=== PATIENT | female | born 1950 | race Caucasian/White ===

== ENCOUNTER → 2024-09-29 | Outpatient (CLI) | payer MEDICARE, MEDICAID, SELFPAY ==
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
== END | disposition home or self-care (01) ==
PROVIDERS: PCP Family Medicine; Referring Provider Family Medicine; Visit Provider Family Medicine
DX: M75.102 Unspecified rotator cuff tear or rupture of left shoulder, not specified as traumatic (principal)
CPT/HCPCS: 73221

== ENCOUNTER 2025-02-12 16:02 | Inpatient (IN) | payer MEDICARE, MEDICAID, SELFPAY ==
[2025-02-12] VITALS (18 sets, daily range): BP systolic 95–166; BP diastolic 52–92; PULSE 95–122; RESP 13–89; TEMP 35.7–38.6; O2SAT 89–98; BMI 36.6; BMI 36.8
--- NOTE | 2025-02-12 16:18 | PD.EDURI ---
Upper Respiratory Inf. RME/HPI General Chief Complaint: Upper Respiratory Infection Stated Complaint: WEAKNESS Time Seen by Provider: 02/12/25 16:08 Arrival date/time: 02/12/25 16:02 Limitations: no limitations RME / HPI RME / HPI Narrative: 74 year old female with history of diabetes, hypothyroidism, spinal stenosis, chronic pain presents to the ED BIBA from [facility] for evaluation of weakness beginning 2 days ago. Per medics, [place] reported the patient was diaphoretic, tachycardic rate 118, and hypoxic 88% on room air. Additionally reported the patient was diagnosed with a UTI 2 days ago and started on antibiotics. While in the ED, the patient reports feeling slightly short of breath with a mild cough and abdominal pain. Otherwise no other associated symptoms reported. Related Data Home Medications ?Medication ?Instructions ?Recorded ?Confirmed cyclobenzaprine 10 mg tablet 10 mg PO BID PRN Muscle Pain 05/23/24 02/12/25 Held on 05/23/24. Instructions: Resume on 05/24/24. docusate sodium 250 mg capsule 250 mg PO BID 05/23/24 02/12/25 duloxetine 40 mg capsule,delayed 40 mg PO BID 05/23/24 02/12/25 release insulin degludec 100 unit/mL (3 100 unit subcut AC 05/23/24 02/12/25 mL) subcutaneous pen (Tresiba FlexTouch U-100 insulin) lactulose 10 gram/15 mL oral 10 g PO Q8HR PRN Gastrointestinal 05/23/24 02/12/25 solution (Enulose) Spasms Or Cramping levothyroxine 75 mcg tablet 75 mcg PO QDAY 05/23/24 02/12/25 linaclotide 145 mcg capsule 145 mcg PO QDAY 05/23/24 02/12/25 (Linzess) ondansetron HCl 4 mg tablet 4 mg PO Q8HR 05/23/24 02/12/25 oxycodone 10 mg tablet 10 mg PO Q8HR PRN Pain 05/23/24 02/12/25 Held on 05/23/24. Instructions: Resume on 05/24/24. promethazine-DM 6.25 mg-15 mg/5 mL 6.25 ml PO Q6HR PRN Cough 05/23/24 02/12/25 oral syrup semaglutide 7 mg tablet (Rybelsus) 7 mg PO QAM 05/23/24 02/12/25 Lactobacillus 1 tab PO QAM 02/12/25 02/12/25 acidophilus-Lactbacill.bifidus 1 billion cell oral wafer bisacodyl 10 mg rectal suppository 10 mg [place] QDAY PRN constipation 02/12/25 02/12/25 (Dulcolax (bisacodyl)) ibuprofen 600 mg tablet 600 mg PO Q8H PRN pain 02/12/25 02/12/25 insulin degludec 100 unit/mL (3 30 unit subcut QDAY 02/12/25 02/12/25 mL) subcutaneous pen (Tresiba FlexTouch U-100 insulin) lidocaine 5 % topical patch 1 patch topical Q24H 02/12/25 02/12/25 magnesium hydroxide 400 mg/5 mL 30 ml PO Q72H Constipation 02/12/25 02/12/25 oral suspension (Milk of Magnesia) nortriptyline 10 mg capsule 10 mg PO .qhs 02/12/25 02/12/25 ondansetron HCl 4 mg tablet 4 mg PO Q8H 02/12/25 02/12/25 pregabalin 100 mg capsule 100 mg PO Q8H 02/12/25 02/12/25 pregabalin 100 mg capsule (Lyrica) 100 mg PO Q8H 02/12/25 02/12/25 sennosides 8.6 mg-docusate sodium 2 tab-cap PO BID PRN constipation 02/12/25 02/12/25 50 mg tablet (2-in-1 Laxative) simethicone 80 mg chewable tablet 80 mg PO TID 02/12/25 02/12/25 (Gas Relief 80 (simethicone)) sulfamethoxazole 800 1 tab PO BID 02/12/25 02/12/25 mg-trimethoprim 160 mg tablet (Bactrim DS) Allergies Allergy/AdvReac Type Severity Reaction Status Date / Time niacin Allergy Severe Flushing Verified 05/23/24 14:01 Review of Systems Review of Systems Systems Reviewed: All systems reviewed, normal except as documented Past Medical History Past Medical History NEUROLOGIC: Positive Neurological Disorders and Peripheral Neuropathy CARDIAC: Positive Hypercholesterolemia RESPIRATORY: Positive Sleep Apnea GENITOURINARY: Positive Genitourinary Disorders and Renal Disease (ENLARGED LIVER) REPRODUCTIVE: Positive Previous Pregnancies MUSCULOSKELETAL: Positive Musculoskeletal Disorders and Carpal Tunnel Syndrome ENDOCRINE: Positive Endocrine Disorders and Hypothyroidism OTHER HISTORY: Positive Falls, Blood Transfusions, Chicken Pox and Measles Surgical History SURGICAL: Positive Tonsillectomy, Joint Replacement and Hysterectomy Social History SMOKING STATUS: Former smoker SUBSTANCE USE: does not use ED Exam General Limitations: Present no limitations General appearance: Present alert and in no apparent distress Head Head exam: Present atraumatic, normocephalic and normal inspection Eye Eye exam: Present normal appearance, PERRL and EOMI ENT ENT exam: Present normal exam, normal oropharynx and mucous membranes moist Neck Neck exam: Present normal inspection, full ROM and trachea midline Chest Chest inspection: Present normal inspection and symmetric chest wall rise Respiratory Respiratory exam: Present normal lung sounds bilaterally Cardiovascular Cardiovascular exam: Present regular rate, normal rhythm and normal heart sounds Abdominal Exam Abdominal exam: Present soft, normal bowel sounds and other (large hernia in the left lower abdomen, midline surgical scar noted ) Extremities Exam Extremities exam: Present other (well healed surgical scar on the left knee) Back Exam Back exam: Present normal inspection and full ROM Neurological Exam Neurological exam: Present alert, oriented X3 and CN II-XII intact Psychiatric Psychiatric exam: Present normal affect and normal mood Skin Skin exam: Present warm, dry, intact and normal color Course Quality Measures Current suspected stage: sepsis Possible source: genitourinary Blood cultures ordered: completed in ED Antibiotic ordered: Yes Pertinent labs: 02/12/25 02/12/25 16:20 16:30 Lactic Acid 1.2 mMol/L (0.4-2.0) Procalcitonin 0.56 H ng/ml (0.0-0.49) sepsis Orders Category Date Time Status Blood gas, venous NOW Care 02/12/25 16:22 Active COVID-19 Screening Questionnaire NOW Care 02/12/25 20:06 Completed Bulk Sausage Casing Tier Off Q4H START 00 Care 02/12/25 16:17 Active Continuous Pulse Oximetry STAT Care 02/12/25 16:17 Completed Decision to Admit X1 Care 02/12/25 20:06 Completed EKG (ED ONLY) *Do not use* NOW Care 02/12/25 16:17 Completed In and Out Catheter X1PRN Care 02/12/25 16:17 Completed Insert IV NOW Care 02/12/25 16:17 Active NPO STAT Care 02/12/25 16:17 Active Strict Intake and Output Routine Care 02/12/25 16:[address] abdomen pelvis wo con Stat Exams 02/12/25 16:17 Completed CXRP [XR chest 1V portable] Stat Exams 02/12/25 16:17 Completed EKG (ED Only) Stat Exams 02/12/25 16:17 Ordered US gall bladder Stat Exams 02/12/25 17:56 Completed ABG [Arterial Blood Gas] Stat Lab 02/12/25 19:56 Completed B-Type Natriuretic Peptide Stat Lab 02/12/25 16:20 Completed Blood Culture (Lab) Stat Lab 02/12/25 16:20 Received CBC Stat Lab 02/12/25 16:20 Completed Comprehensive Metabolic Panel Stat Lab 02/12/25 16:20 Completed LDH (Lactate Dehydrogenase) Stat Lab 02/12/25 16:20 Completed Lactate (Lactic Acid) Stat Lab 02/12/25 16:30 Completed Lipase Stat Lab 02/12/25 16:20 Completed Magnesium Stat Lab 02/12/25 16:20 Completed Partial Thromboplastin Time Stat Lab 02/12/25 16:20 Completed Phosphorous Stat Lab 02/12/25 16:20 Completed Procalcitonin Stat Lab 02/12/25 16:20 Completed Prothrombin Time with INR Stat Lab 02/12/25 16:20 Completed Troponin I Stat Lab 02/12/25 16:20 Completed Urinalysis Stat Lab 02/12/25 16:56 Completed Urine Culture Stat Lab 02/12/25 16:56 Received Dexamethasone Inj [Decadron Inj] Med 02/12/25 17:40 Discontinued 6 mg IVP X1 ONE LORazepam [Ativan Inj] Med 02/12/25 19:37 Discontinued 0.75 mg IVP X1 ONE Meropenem Inj [Merrem Inj] 1,000 mg Med 02/12/25 16:17 Discontinued SODIUM CHLORIDE 0.9% (Popper) [Ns 0.9% (P)] 50 ml IV X1 Norepinephrine/D5W 8mg/250ml [Levophed in D5W 8mg/250ml Med 02/12/25 18:19 Discontinued ] 8 mg in 250 ml IV 0.05 mcg/kg/min Oseltamivir [Tamiflu] Med 02/12/25 18:08 Discontinued 75 mg PO X1 ONE Sodium Chloride 0.9% 1000 ml [Ns] 1,503 ml Med 02/12/25 16:17 Discontinued IV 1,503 mls/hr Oxygen Delivery NOW RT 02/12/25 16:17 Active Vital Signs Vital signs: Vital Signs Temperature 101.5 F H 02/12/25 16:13 Pulse Rate 99 02/12/25 16:13 Respiratory Rate 24 H 02/12/25 16:13 Blood Pressure 120/63 02/12/25 16:13 Pulse Oximetry (%) 89 L 02/12/25 16:13 Oxygen Delivery Method Room Air 02/12/25 16:13 Pulse ox is 89% on room air which is hypoxic. Upper Respiratory Infection MDM Narrative MDM Narrative:: IAltagracia am scribing for and in the presence of Dr. Andrade. 1800: Patient signed out to Dr. Tavarez pending labs and final disposition. Patient data External records reviewed:: [facility] previous records, EMS form and [facility] records (I reviewed pmhx and medication list from [facility] ) Clinical information provided by:: patient and EMS Social determinants that could affect healthcare access:: housing ([place] resident ) Patient has the following chronic illnesses:: diabetes, hypothyroidism, spinal stenosis, chronic pain How is presenting disease/condition affected by chronic disease/condition?: exacerbated by Evaluation data The following diagnostics were reviewed and interpreted by me:: lab results, radiology exam(s) and EKG tracing(s) (02/12/2025 16:11. Sinus rhythm, rate 97, no STEMI, [place] 153 ms, QRS 81 ms, QT/QTc 327/381 ms. ) Lab and/or radiology exams considered but not ordered:: None Interpretation Summary: Ordering Physician: Haim Andrade MD Date of Service: 02/12/25 Procedure(s): CT abdomen pelvis wo con Accession Number(s): [id number] cc: Haim Andrade MD; Manolo Cummings MD; NO PRIMARY/FAMILY,PHYSICIAN~ Examination: CT abdomen and pelvis without contrast. Coronal 3-D reconstructions. Sagittal 2-D reconstructions. Date and time of exam:February 12, 2025 1704 hours Comparison March 24, 2024 INDICATIONS: Abdominal pain and weakness beginning 2 days ago CTDI: vol (mGy): 16.4 DLP: (mGycm): 831 Technique: Axial images of the abdomen have been obtained, 3 mm slice thickness Intravenous contrast material has not been administered. Low dose protocols were performed. One or more of the following dose reduction techniques were used; automated exposure control, adjustment of the mA and/or KV according to patient size, use of iterative reconstruction technique. Findings: No liver lesions Suspicious for small gallstones No pancreatic mass Again noted anterior left upper abdomen hernia defect, 6 cm which contains a loop of small bowel on this study but no incarcerated bowel Larger left anterior abdominal wall hernia defect 7.5 cm containing colon and small bowel Small bowel loops in the hernia defect are mildly fluid distended but without definite incarceration No pericecal inflammatory change No renal or ureteral calculi Urinary bladder is intact Significant osteopenia IMPRESSION: Upper left anterior abdominal wall hernia defects 6 cm containing a loop of small bowel but no incarcerated bowel Larger lower left anterior abdominal wall hernia defects on 0.5 cm containing colon and small bowel, small bowel loops in the hernia defect are mildly fluid distended but no definite incarceration and no bowel obstruction noted Recommend hepatobiliary sonography follow-up to exclude small gallstones Dictated By: Manolo Cummings MD Signed By: <Electronically signed by Manolo Cummings MD in [place]> 02/12/25 1721 Ordering Physician: Haim Andrade MD Date of Service: 02/12/25 Procedure(s): XR chest 1V portable Accession Number(s): [id number] cc: Haim Andrade MD; Manolo Cummings MD; NO PRIMARY/FAMILY,PHYSICIAN~ Examination: AP chest single view TECHNIQUE: AP portable upright chest single view Date and time: February 12, 2025 1838 hours Comparison January 06, 2024 INDICATIONS: Shortness of breath today. FINDINGS: No significant cardiac enlargement Mild vascular congestion Prominent osteopenia. No lobar pneumonia No pulmonary edema IMPRESSION: Mild vascular congestion Dictated By: Manolo Cummings MD Signed By: <Electronically signed by Manolo Cummings MD in OV> 02/12/25 1710 Medications / Prescriptions Medications or Prescriptions considered but not ordered:: None Medication administrations:: Medication Administration History Acetaminophen (Acetaminophen 325 Mg Tablet) 650 mg PO Q6H PRN PRN Reason: Fever >99.5 Stop: 03/14/25 20:07 Acetaminophen (Acetaminophen 325 Mg Tablet) 1,000 mg PO Q6H PRN PRN Reason: PAIN SCALE 1-3 (mild Stop: 03/14/25 20:07 Albuterol/Ipratropium (Albuterol/Ipratropium (Duoneb) Rt Talisha 3 Ml Nebu) 3 ml INH Q6HRRT [facility] Stop: 03/15/25 00:59 Last Admin: 02/13/25 00:51 Dose: 3 ml Documented By: GB Albuterol/Ipratropium (Albuterol/Ipratropium (Duoneb) Rt Talisha 3 Ml Nebu) 3 ml INH Q2HR PRN PRN Reason: SHORTNESS OF BREATH OR WHEEZE Stop: 03/14/25 20:07 Dextrose (Dextrose 50%-Water Inj 50 Ml Syringe) 25 ml IV Q15MIN PRN PRN Reason: BG 50-70 responsive npo pt Stop: 03/14/25 20:25 Dextrose (Dextrose 50%-Water Inj 50 Ml Syringe) 50 ml IV Q15MIN PRN PRN Reason: BG <50 OR BG <70 & pt unresponsive Stop: 03/14/25 20:25 Duloxetine HCl (Duloxetine Hcl 30 Mg Capsule) 40 mg PO BID [facility] Stop: 03/14/25 20:59 Last Admin: 02/12/25 23:25 Dose: Not Given Documented By: AU Non-Admin Reason: NPO Enoxaparin Sodium (Enoxaparin Sod Inj 40 Mg/0.4 Ml Syringe) 40 mg SC QDAY [facility] Stop: 02/27/25 08:59 Glucagon (Glucagon Inj 1 Mg Vial) 1 mg IM Q15MIN PRN PRN Reason: BG <70, and no IV access Ceftriaxone Sodium/Dextrose (Rocephin/D5w 1gm Iv Premix) 1 gm in 50 mls @ 100 mls/hr IV QDAY@2100 [facility] Stop: 02/20/25 20:59 Azithromycin 500 mg/ Sodium (Chloride) 250 mls @ 250 mls/hr IV QDAY@2100 [facility] Stop: 02/20/25 20:59 Insulin Human Lispro (Insulin Lispro (Admelog) 1 Unit/0.01 Ml Unit) 0 unit SC Q6HR [facility]; Protocol Stop: 03/14/25 20:29 Last Admin: 02/13/25 06:17 Dose: 1 unit Documented By: MISHEL Co-signed By: RB Admin: 02/12/25 23:45 Dose: 2 unit Documented By: DARIUS Co-signed By: RB Admin: 02/12/25 20:58 Dose: 2 unit Documented By: JIMBO Co-signed By: ELVIE Levothyroxine Sodium (Levothyroxine Sodium 25 Mcg Tablet) 75 mcg PO ACBR [facility] Stop: 03/15/25 05:59 Last Admin: 02/13/25 06:02 Dose: Not Given Documented By: MISHEL Non-Admin Reason: NPO Ondansetron HCl (Ondansetron Inj 2 Mg/Ml Inj 2 Ml) 4 mg IVP Q6H PRN; Protocol PRN Reason: NAUSEA OR VOMITING Stop: 03/14/25 20:07 Oseltamivir Phosphate (Oseltamivir 75 Mg Capsule) 75 mg PO BID [facility] Stop: 02/19/25 20:59 Pantoprazole Sodium (Pantoprazole Inj 40 Mg Vial) 40 mg IVP QDAY [facility] Stop: 03/15/25 08:59 Sennosides (Senna Tablet) 1 tab PO QDAY [facility]; Protocol Stop: 03/15/25 08:59 Discontinued Medications Dexamethasone Sodium Phosphate (Dexamethasone Sod Phos Inj 10 Mg/Ml Vial) 6 mg IVP X1 ONE Stop: 02/12/25 17:41 Last Admin: 02/12/25 18:07 Dose: 6 mg Documented By: CG Sodium Chloride (Ns) 1,503 mls @ 1,503 mls/hr 30 ml/kg infuse over 60 min (1503 ml) IV .Q1H ONE Stop: 02/12/25 17:16 Last Infusion: 02/12/25 17:47 Dose: Infused Documented By: Admin: 02/12/25 16:48 Dose: 1,503 mls/hr Documented By: CG Meropenem 1,000 mg/ Sodium (Chloride) 50 mls @ 100 mls/hr IV X1 ONE Stop: 02/12/25 16:18 Last Infusion: 02/12/25 17:22 Dose: Infused Documented By: Admin: 02/12/25 16:48 Dose: 100 mls/hr Documented By: CG Norepinephrine/Dextrose (Levophed In D5w 8mg/250ml) 8 mg in 250 mls @ 8.505 mls/hr IV .Q24H PRN; Protocol PRN Reason: PER PROTOCOL Stop: 03/14/25 18:18 Doxycycline Hyclate 100 mg/ (Sodium Chloride) 100 mls @ 100 mls/hr IV BID [facility] Stop: 02/19/25 20:59 Ceftriaxone Sodium/Dextrose (Rocephin/D5w 1gm Iv Premix) 1 gm in 50 mls @ 100 mls/hr IV X1 ONE Stop: 02/12/25 20:59 Last Infusion: 02/12/25 21:19 Dose: Infused Documented By: Admin: 02/12/25 20:50 Dose: 100 mls/hr Documented By: CB Doxycycline Hyclate 100 mg/ (Sodium Chloride) 100 mls @ 100 mls/hr IV X1 ONE Stop: 02/12/25 21:29 Last Admin: 02/12/25 20:50 Dose: 100 mls/hr Documented By: CB Azithromycin 500 mg/ Sodium (Chloride) 250 mls @ 250 mls/hr IV X1 ONE Stop: 02/12/25 21:29 Last Admin: 02/12/25 22:11 Dose: 250 mls/hr Documented By: DARIUS Lorazepam (Lorazepam 2 Mg/Ml Vial) 0.75 mg IVP X1 ONE Stop: 02/12/25 19:38 Last Admin: 02/12/25 19:50 Dose: 0.75 mg Documented By: CB Oseltamivir Phosphate (Oseltamivir 75 Mg Capsule) 75 mg PO X1 ONE Stop: 02/12/25 18:09 Last Admin: 02/12/25 18:14 Dose: 75 mg Documented By: CG Sodium Chloride (Sodium Chloride Rt 10% 15 Ml Nebu) 5 ml INH X1 ONE Stop: 02/12/25 20:09 See above Consultations Consultation(s) initiated? (list below): No Diagnosis Upper Respiratory Differential Diagnosis: upper respiratory infection, viral infection, bronchitis, influenza and other (pneumonia, sepsis, UTI ) Most likely diagnosis given after review of the tests above:: Sepsis 2/2 to urinary source Abdominal pain Admission Indicated Admission indicated?: not indicated Explain why admission is indicated or not indicated:: Pt signed out pending final disposition Admission Request Was there a request for admission?: No Disposition Plan Disposition Plan: other (specify) (Signed out to Dr. Tavarez pending labs. ) Critical Care Time Critical Care Time Critical Care Time: Yes Total Critical Care Time (min.): 45 Attestation: The high probability of sudden, clinically significant deterioration in the patient's condition required the highest level of my preparedness to intervene urgently. The services I provided to this patient were to treat and/or prevent clinically significant deterioration. Services included the following: chart data review, reviewing nursing notes and/or old charts, documentation time, home planning consultant salesperson collaboration regarding findings and treatment options, medication orders and management, direct patient care, vital sign assessments and ordering, interpreting and reviewing diagnostic studies and lab tests. Aggregate critical care time includes only time during which I was engaged in work directly related to the patient's care, as described above, whether at bedside or elsewhere in the Emergency Department. It did not include time spent performing other reported procedures or the services of residents, students, nurses or physician assistants. Discharge Plan Plan Patient Disposition: Admit Acute Care w/in Hospital Discharge Disposition comment: MED TELE Patient condition on transfer: Stable Problem List Clinical Impression: Acute respiratory failure with hypoxia, Influenza, Sepsis, UTI (urinary tract infection)
[2025-02-12 16:36] LABS: Lactate (Lactic Acid) 1.2 mMol/L (0.4-2.0)
[2025-02-12 16:45] LABS: Basophils # (Auto) 0.1 Thou/mm3 (0.0-0.2); Basophils % (Auto) 1 % (0-2.5); Eosinophils % (Auto) 0 % (0-10); Hematocrit 48.3 % (36.0-46.0); Hemoglobin 16.3 g/dL (12.0-16.0); Immature Granulocytes % (Auto) 2 % (0-0); Immature Granulocytes Auto 0.13 Thou/mm3 (0.00-0.00); Lymphocytes # (Auto) 0.7 Thou/mm3 (1.0-4.8); Lymphocytes % (Auto) 12 % (10-50); Mean Corpuscular HGB Conc 33.7 g/dl (31.0-37.0); Mean Corpuscular Hemoglobin 30.2 pg (25.0-35.0); Mean Corpuscular Volume 89 fL (80-100); Monocytes # (Auto) 0.2 Thou/mm3 (0.0-0.8); Monocytes % (Auto) 3 % (0-12); Neutrophils # (Auto) 4.7 Thou/mm3 (1.8-7.7); Neutrophils % (Auto) 82 % (37-80); Nucleated Red Blood Cell % 0 /100 WBC (0); Platelet Count 170 Thou/mm3 (140-440); RDW Standard Deviation 44.9 fL (36.4-46.3); White Blood Count 5.8 Thou/mm3 (3.6-11.0)
[2025-02-12] MEDS: SODIUM CHLORIDE 0.9% 1000 ML 1,503 ML 1503 ML IV (16:48)
[2025-02-12] MEDS: MEROPENEM INJ 1,000 MG in SODIUM CHLORIDE 0.9% (Popper) 50 ML 100 MG IV (16:48)
[2025-02-12 17:09] LABS: B-Type Natriuretic Peptide < 20 pg/mL (0-100)
[2025-02-12 17:15] LABS: Partial Thromboplastin Time 33.2 Seconds (22.0-36.0); Prothrombin Time 11.3 Seconds (9.0-12.2)
[2025-02-12 17:16] LABS: Collection Type, Urine Clean Catch
[2025-02-12 17:26] LABS: Bacteria,Urine 4+; Bilirubin,Urine Negative (Negative); Blood,Urine Negative (Negative); Clarity,Urine Hazy (Clear/Hazy); Color,Urine Yellow (Lt Yel-Yel); Glucose, Urine Negative (Negative); Ketones,Urine Negative (Negative); Leukocyte Esterase,Urine Negative (Negative); Nitrite,Urine Negative (Negative); PH,Urine 5.5 (5.0-7.0); Protein,Urine Trace (Neg - Trace); RBC,Urine 2 /hpf (0-3); Specific Gravity,Urine 1.017 (1.001-1.035); Squamous Epithelial Cell,Urine 3 /hpf (0-5); Urobilinogen,Urine Negative mg/dL (0.0-1.0); WBC,Urine 2 /hpf (0-5)
--- NOTE | 2025-02-12 17:56 | XR_ITS ---
Examination: Abdomen sonogram, Limited Date and time of exam: February 12, 2025 1833 hours INDICATIONS: Cholelithiasis CT EXAMINATION TODAY, ABDOMINAL PAIN THIS WEEK Technique: Real-time daly scale transabdominal sonographic images of the upper abdomen obtained. Findings: Multiple gallstones Normal gallbladder wall Normal common bile duct 0.4 cm Pancreatic head 3.3 cm Liver 19.1 cm mildly irregular contour Normal hepatopedal portal venous flow Patent IVC IMPRESSION: Cholelithiasis, negative for cholecystitis
[2025-02-12] MEDS: DEXAMETHASONE SOD PHOS INJ 10 MG/ML VIAL 6 MG IVP (18:07)
--- NOTE | 2025-02-12 18:11 | PD.EDADDENDU ---
Emergency Room Addendum <Nadine Hoover - Last Filed: 02/12/25 19:29> Addendum Narrative: I took over the care from Dr. Andrade at 6 PM on 02/12/2025, see his notes for complete H&P and ED course. I was asked to take over this patient pending labs. I reviewed all diagnostic test results. Blood tests Sodium 133, Procalcitonin 0.56. I discussed the case with our hospitalist. About the presentation and exam and diagnostics and treatments here. And need of further care in the hospital. Will accept the patient. Steve Tavarez MD <Steve Tavarez MD - Last Filed: 02/12/25 21:03> Addendum Narrative: I took over the care from Dr. Andrade at 6 PM on 02/12/2025, see his notes for complete H&P and ED course. I was asked to take over pending diagnostic test results. I reviewed all diagnostic test results. My interpretation of the chest x-ray is increased vascular congestion. My review of the abdominal CT report is: Upper left anterior abdominal wall hernia defects 6 cm containing a loop of small bowel but no incarcerated bowel. Larger lower left anterior abdominal wall hernia defects on 0.5 cm containing colon and small bowel, small bowel loops in the hernia defect are mildly fluid distended but no definite incarceration and no bowel obstruction noted. My review of the gallbladder US report is cholelithiasis. Blood tests unremarkable. Urine markable for 4+ bacteria. ABG showed pH 7.22, pCO2 67, and pHCO3 27. COVID negative. Influenza positive. Diagnoses include: Acute respiratory failure with hypoxia Sepsis UTI Influenza Treatment included oxygen, IV fluid, Tamiflu, and meropenem. I discussed the case with our hospitalist. About the presentation and exam and diagnostics and treatments here. And need of further care in the hospital. Will accept the patient. Steve Tavarez MD
[2025-02-12] MEDS: OSELTAMIVIR 75 MG CAPSULE PO (18:14)
[2025-02-12 18:16] LABS: Anion Gap 12 (7-16); BUN/Creatinine Ratio 14 Ratio (12-20); Blood Urea Nitrogen 14 mg/dL (9-23); Carbon Dioxide 24.2 mMol/L (20.0-31.0); Chloride 97 mMol/L (98-107); Estimated Creatinine Clearance 53.3 mL/min (>60); Glucose 140 mg/dL (74-106); Potassium 4.2 mMol/L (3.4-5.1); Sodium 133 mMol/L (136-145); eGFR 60 See Note
[2025-02-12 18:17] LABS: Alanine Aminotransferase 40 U/L (10-49); Albumin, Serum 4.5 gm/dL (3.4-4.8); Albumin/Globulin Ratio 1.7 (1.2-2.2); Alkaline Phosphatase 103 U/L (46-116); Aspartate Amino Transferase 54 U/L (0-34); Bilirubin,Total 0.6 mg/dL (0.3-1.2); Calcium 10.6 mg/dL (8.3-10.6); Calcium (Corrected) 10.6 mg/dL (8.5-10.1); Globulin 2.7 gm/dL (2.3-3.5); LDH (Lactate Dehydrogenase) 299 U/L (120-246); Lipase 35 U/L (12-53); Magnesium 2.1 mg/dL (1.6-2.6); Osmolality,Calculated 268 (275-295); Phosphorous 2.3 mg/dL (2.4-5.1); Procalcitonin 0.56 ng/ml (0.0-0.49); Total Protein 7.2 gm/dL (5.7-8.2); Troponin I < 0.020 ng/mL (0.0-0.045)
[2025-02-12] MEDS: LORazepam 2 MG/ML VIAL 0.75 MG IVP (19:50)
[2025-02-12 20:03] LABS: Base Excess -2 (-3-3); HCO3 27 mEq/L (20-26); O2 Saturation 95 % (91-98); PCO2 67 mmHg (32.0-48.0); PO2 83 mmHg (83-108); pH, Arterial 7.22 (7.35-7.45)
[2025-02-12 20:04] LABS: Allen Test Performed/OK; Inspired O2, VO2 Liters 5 L/min; Puncture Site Left Radial
--- NOTE | 2025-02-12 20:13 | XR_ITS ---
Examination: CT brain head without contrast. 2-D sagittal coronal reconstructions Date and time of exam:February 12, 20252035 hours Comparison September 06, 2019 INDICATIONS: Altered mental status one week CTDI: vol (mGy):51 DLP: (mGycm):1109 Technique: Multiple CT axial sections of the brain have been obtained, 5 mm slice thickness. Contrast has not been administered. 2-D sagittal, coronal reconstructions have been obtained Low dose protocols were performed. One or more of the following dose reduction techniques were used; automated exposure control, adjustment of the mA and/or KV according to patient size, use of iterative reconstruction technique. Findings: Numerous artifacts No significant ventricular enlargement. Intra-axial or extra-axial hemorrhage density is not seen. No mass effect or midline shift Basal cisterns are not remarkable. Fourth ventricle is midline. Cranial vault intact. Impression: Artifacts degrade scan image quality. No gross hemorrhage mass effect or midline shift
--- NOTE | 2025-02-12 20:21 | PD.RESHP ---
Documentation for date of: 02/12/25 [facility] History of Present Illness Chief complaint: Weakness History of present illness: History is limited as patient is encephalopathic 74 year old female with history of diabetes, hypothyroidism, spinal stenosis, chronic pain who was brought to the ED from rehab for generalized weakness. Per shelter symptoms started around 2 days ago where patient was diagnosed with a UTI and was started on antibiotic therapy. However patient later became tachycardic, hypoxic around 88% on room air, very diaphoretic and nursing facility called the ambulance. Patient in the ED was apparently AAO X3, per nursing staff however on my evaluation patient became encephalopathic with GCS 11 (E: 4, V: 2, M: 5). ED course: ED vitals: BP 120/63, HR 99, respiratory rate 24, temperature 101.5 ?F, saturating 89% on room air ED labs: Polycythemic, sodium 133, chloride 97, glucose 140, corrected calcium 10.6, phosphorus 2.3, AST 54, LDH 299, procalcitonin 0.56, UA shows +4 bacteria, gallbladder ultrasound shows cholelithiasis no acute cholecystitis, chest x-ray shows mild vascular congestion, CT abdomen pelvis shows Upper left anterior abdominal wall hernia defects 6 cm containing a loop of small bowel but no incarcerated bowel Larger lower left anterior abdominal wall hernia defects on 0.5 cm containing colon and small bowel, small bowel loops in the hernia defect are mildly fluid distended but no definite incarceration and no bowel obstruction noted In the ED patient received meropenem, Tamiflu 75 mg x 1, Decadron, 2 L IV fluids PMHx: As above SX Hx: Unknown Social Hx: Unknown FH X: Unknown Review of Systems Review of Systems ROS Unobtainable: unobtainable due to mental status Exam Vital Signs Temp Pulse Resp BP Pulse Ox O2 Del Method O2 Flow Rate 100.2 F 108 H 29 H 127/55 L 95 Oxy Mask 7 02/12/25 19:53 02/12/25 20:00 02/12/25 20:00 02/12/25 20:00 02/12/25 20:00 02/12/25 20:00 02/12/25 20:00 Narrative Exam Physical Exam GENERAL: NAD, GCS 11 (E: 4, V: 2, M: 5) HEENT: Moist mucosa. Eyes open, symmetrical, & clear CARDIO: Heart RRR, no obvious murmurs PULM: Coughing and dyspnea, decreased breath sounds bilaterally, congestion on auscultation GI: Abdomen soft, nondistended, no pain on palpation. BSx4 SKIN/MSK/EXT: Cold bilateral lower extremities, no pain on palpation. Pedal pulses present B/L Results: Labs 02/12/25 16:20 02/12/25 16:20 Labs: Short CBC 02/12/25 Range/Units 16:20 WBC 5.8 (3.6-11.0) Thou/mm3 Hgb 16.3 H (12.0-16.0) g/dL Hct 48.3 H (36.0-46.0) % Plt Count 170 (140-440) Thou/mm3 BMP 02/12/25 16:20 Sodium 133 L Potassium 4.2 Chloride 97 L Carbon Dioxide 24.2 BUN 14 Creatinine 1.0 Glucose 140 H Calcium 10.6 Cardiac Enzymes 02/12/25 Range/Units 16:20 Troponin I < 0.020 (0.0-0.045) ng/mL Liver Function 02/12/25 Range/Units 16:20 Total Bilirubin 0.6 (0.3-1.2) mg/dL AST 54 H (0-34) U/L ALT 40 (10-49) U/L Alkaline Phosphatase 103 (46-116) U/L Albumin 4.5 (3.4-4.8) gm/dL Urine 02/12/25 Range/Units 16:56 Urine Color Yellow (Lt Yel-Yel) Urine Clarity Hazy (Clear/Hazy) Urine pH 5.5 (5.0-7.0) Ur Specific [place] 1.017 (1.001-1.035) Urine Protein Trace (Neg - Trace) Urine Glucose (UA) Negative (Negative) ABG Interpretation ABG results: 02/12/25 19:56 ABG pH 7.22 L ABG pCO2 67 H ABG pO2 83 ABG HCO3 27 H ABG O2 Saturation 95 ABG Base Excess -2 Quality Measures Quality Measures sepsis Current suspected stage: ruled out Possible source: genitourinary Blood cultures ordered: completed in ED Antibiotic ordered: Yes Advance care planning discussed with:: patient Medications Home Medications and Allergies Home Medications ?Medication ?Instructions ?Recorded ?Confirmed ?Type cyclobenzaprine 10 mg tablet 10 mg PO BID PRN Muscle Pain 09/23/24 06/15/25 History Held on 05/23/24. Instructions: Resume on 05/24/24. docusate sodium 250 mg capsule 250 mg PO BID 05/23/24 02/12/25 History duloxetine 40 mg capsule,delayed 40 mg PO BID 05/23/24 02/12/25 History release insulin degludec 100 unit/mL (3 100 unit subcut AC 05/23/24 02/12/25 History mL) subcutaneous pen (Tresiba FlexTouch U-100 insulin) lactulose 10 gram/15 mL oral 10 g PO Q8HR PRN Gastrointestinal 05/23/24 02/12/25 History solution (Enulose) Spasms Or Cramping levothyroxine 75 mcg tablet 75 mcg PO QDAY 05/23/24 02/12/25 History linaclotide 145 mcg capsule 145 mcg PO QDAY 05/23/24 02/12/25 History (Linzess) ondansetron HCl 4 mg tablet 4 mg PO Q8HR 05/23/24 02/12/25 History oxycodone 10 mg tablet 10 mg PO Q8HR PRN Pain 05/23/24 02/12/25 History Held on 05/23/24. Instructions: Resume on 05/24/24. promethazine-DM 6.25 mg-15 mg/5 mL 6.25 ml PO Q6HR PRN Cough 05/23/24 02/12/25 History oral syrup semaglutide 7 mg tablet (Rybelsus) 7 mg PO QAM 05/23/24 02/12/25 History Lactobacillus 1 tab PO QAM 02/12/25 02/12/25 History acidophilus-Lactbacill.bifidus 1 billion cell oral wafer bisacodyl 10 mg rectal suppository 10 mg [place] QDAY PRN constipation 02/12/25 02/12/25 History (Dulcolax (bisacodyl)) ibuprofen 600 mg tablet 600 mg PO Q8H PRN pain 02/12/25 02/12/25 History insulin degludec 100 unit/mL (3 30 unit subcut QDAY 02/12/25 02/12/25 History mL) subcutaneous pen (Tresiba FlexTouch U-100 insulin) lidocaine 5 % topical patch 1 patch topical Q24H 02/12/25 02/12/25 History magnesium hydroxide 400 mg/5 mL 30 ml PO Q72H Constipation 02/12/25 02/12/25 History oral suspension (Milk of Magnesia) nortriptyline 10 mg capsule 10 mg PO .qhs 02/12/25 02/12/25 History ondansetron HCl 4 mg tablet 4 mg PO Q8H 02/12/25 02/12/25 History pregabalin 100 mg capsule 100 mg PO Q8H 02/12/25 02/12/25 History pregabalin 100 mg capsule (Lyrica) 100 mg PO Q8H 02/12/25 02/12/25 History sennosides 8.6 mg-docusate sodium 2 tab-cap PO BID PRN constipation 02/12/25 02/12/25 History 50 mg tablet (2-in-1 Laxative) simethicone 80 mg chewable tablet 80 mg PO TID 02/12/25 02/12/25 History (Gas Relief 80 (simethicone)) sulfamethoxazole 800 1 tab PO BID 02/12/25 02/12/25 History mg-trimethoprim 160 mg tablet (Bactrim DS) Allergies Allergy/AdvReac Type Severity Reaction Status Date / Time niacin Allergy Severe Flushing Verified 05/23/24 14:01 Visit Medications Acetaminophen (Acetaminophen 325 Mg Tablet) 650 mg PO Q6H PRN PRN Reason: Fever >99.5 Stop: 03/14/25 20:07 Acetaminophen (Acetaminophen 325 Mg Tablet) 1,000 mg PO Q6H PRN PRN Reason: PAIN SCALE 1-3 (mild Stop: 03/14/25 20:07 Albuterol/Ipratropium (Albuterol/Ipratropium (Duoneb) Rt Talisha 3 Ml Nebu) 3 ml INH Q6HRRT STEPHANI Stop: 03/15/25 00:59 Albuterol/Ipratropium (Albuterol/Ipratropium (Duoneb) Rt Talisha 3 Ml Nebu) 3 ml INH Q2HR PRN PRN Reason: SHORTNESS OF BREATH OR WHEEZE Stop: 03/14/25 20:07 Duloxetine HCl (Duloxetine Hcl 30 Mg Capsule) 40 mg PO BID STEPHANI Stop: 03/14/25 20:59 Enoxaparin Sodium (Enoxaparin Sod Inj 40 Mg/0.4 Ml Syringe) 40 mg SC QDAY [facility] Stop: 02/27/25 08:59 Ceftriaxone Sodium/Dextrose (Rocephin/D5w 1gm Iv Premix) 1 gm in 50 mls @ 100 mls/hr IV QDAY STEPHANI Stop: 02/19/25 20:12 Doxycycline Hyclate 100 mg/ (Sodium Chloride) 100 mls @ 100 mls/hr IV BID STEPHANI Stop: 02/19/25 20:59 Levothyroxine Sodium (Levothyroxine Sodium 88 Mcg Tablet) 75 mcg PO ACBR STEPHANI Stop: 03/15/25 05:59 Ondansetron HCl (Ondansetron Inj 2 Mg/Ml Inj 2 Ml) 4 mg IVP Q6H PRN; Protocol PRN Reason: NAUSEA OR VOMITING Stop: 03/14/25 20:07 Oseltamivir Phosphate (Oseltamivir 75 Mg Capsule) 75 mg PO BID [facility] Stop: 02/19/25 20:59 Pantoprazole Sodium (Pantoprazole Inj 40 Mg Vial) 40 mg IVP QDAY [facility] Stop: 03/15/25 08:59 Sennosides (Senna Tablet) 1 tab PO QDAY [facility]; Protocol Stop: 03/15/25 08:59 Discontinued Medications Dexamethasone Sodium Phosphate (Dexamethasone Sod Phos Inj 10 Mg/Ml Vial) 6 mg IVP X1 ONE Stop: 02/12/25 17:41 Last Admin: 02/12/25 18:07 Dose: 6 mg Sodium Chloride (Ns) 1,503 mls @ 1,503 mls/hr 30 ml/kg infuse over 60 min (1503 ml) IV .Q1H ONE Stop: 02/12/25 17:16 Last Infusion: 02/12/25 17:47 Dose: Infused Meropenem 1,000 mg/ Sodium (Chloride) 50 mls @ 100 mls/hr IV X1 ONE Stop: 02/12/25 16:18 Last Infusion: 02/12/25 17:22 Dose: Infused Norepinephrine/Dextrose (Levophed In D5w 8mg/250ml) 8 mg in 250 mls @ 8.505 mls/hr IV .Q24H PRN; Protocol PRN Reason: PER PROTOCOL Stop: 03/14/25 18:18 Lorazepam (Lorazepam 2 Mg/Ml Vial) 0.75 mg IVP X1 ONE Stop: 02/12/25 19:38 Last Admin: 02/12/25 19:50 Dose: 0.75 mg Oseltamivir Phosphate (Oseltamivir 75 Mg Capsule) 75 mg PO X1 ONE Stop: 02/12/25 18:09 Last Admin: 02/12/25 18:14 Dose: 75 mg Sodium Chloride (Sodium Chloride Rt 10% 15 Ml Nebu) 5 ml INH X1 ONE Stop: 02/12/25 20:09 Assessment & Plan Plan 74-year-old female with above past medical history who presented to the ED due to weakness, hypoxia, shortness of breath. Patient will be admitted for acute hypoxic and hypercapnic respiratory failure secondary to influenza pneumonia. #Acute encephalopathy likely secondary to #Acute hypoxic and hypercapnic respiratory failure likely secondary to #Influenza pneumonia #UTI Patient presented with tachypnea, fevers of more than 101, hypoxia saturating 89% on room air, tachycardia, diaphoretic UA shows +4 bacteria, patient was started on antibiotics and as an outpatient for 2 days Influenza testing came back positive ABGs show hypercapnia Patient in the ED received 2 L of IV fluids Patient came in and found to have 2 or more SIRS criteria and was evaluated for sepsis. However, based upon further work-up, sepsis was ruled out. ? Follow-up head CT ? DuoNebs scheduled and as needed ? Ceftriaxone ? Azithromycin ? Tamiflu 75 mg twice daily ? Follow-up cultures ? BiPAP ? Follow-up ABGs ? N.p.o. ? Aspiration precautions ? Speech eval #Diabetes mellitus type 2 ? Follow-up A1c ? SSI ? Hypoglycemia protocol in place #Hypothyroidism ? Resume levothyroxine as taken at home #Spinal stenosis #Chronic back pain ? Can resume medications as at a later time as patient is altered at this present point in time ? Pending med rec resume as tolerated Health Maintenance: Disposition: Med telemetry Fluids: None Feeding: N.p.o. Thrombo prophylaxis: Lovenox Gastric Ulcer prophylaxis: Pantoprazole CODE STATUS: Full code Case discussed with my attending Dr. Ulysses Hoover MD PGY-1 Disclaimer: Despite multiple revisions, due to the dictation software being used, the document bellow may not be free of grammatical errors including phonetic/typographic errors. However, this does not deter from our commitment to providing health care in the patient's best interest in mind. Attending Provider Attestation/Addendum I reviewed labs, imaging, EKG, home medications and prior available records. Face to face evaluation was performed by me. I have personally examined the patient and discussed assessment and plan with the IM team. I reviewed the resident note and agree with the plan with exceptions as below. Acute hypoxic respiratory failure Acute respiratory failure with hypercarbia Acute encephalopathy Influenza A/influenza B Acute UTI Generalized weakness Insulin-dependent diabetes mellitus type 2 Spinal stenosis Chronic pain ABG showed significant respiratory acidosis Started the patient on BiPAP CT head is negative for acute changes Will cover with ceftriaxone/azithromycin Started Tamiflu
--- NOTE | 2025-02-12 20:49 | PC.RT ---
bipap settings changed due to pt breathing a low ve, tidal volumes improved to 500s 15/5, RR16
[2025-02-12] MEDS: cefTRIAXone/D5w 1gm IV premix 1 GM/50 ML BAG IV (20:50)
[2025-02-12] MEDS: DOXYCYCLINE INJ 100 MG in SODIUM CHLORIDE 0.9% (POP) 100 ML IV (20:50)
[2025-02-12 20:56] LABS: Lactate (Lactic Acid) 0.8 mMol/L (0.4-2.0)
[2025-02-12] MEDS: INSULIN LISPRO (AdmeLOG) 1 UNIT/0.01 ML UNIT SC ×2 (20:58→23:45)
[2025-02-12] MEDS: AZITHROMYCIN INJ 500 MG in SODIUM CHLORIDE 0.9% 250 ML 250 ML 250 MG IV (22:11)
[2025-02-12 22:33] LABS: Base Excess -5 (-3-3); HCO3 26 mEq/L (20-26); Inspired Oxygen, FIO2 40 %; O2 Saturation 96 % (91-98); PCO2 72 mmHg (32.0-48.0); PO2 94 mmHg (83-108)
[2025-02-12 22:34] LABS: Puncture Site Right Radial; pH, Arterial 7.21 (7.35-7.45)
[2025-02-12 22:35] LABS: Allen Test Performed/OK
[2025-02-13] VITALS (12 sets, daily range): BP systolic 106–127; BP diastolic 56–78; PULSE 82–105; RESP 10–23; TEMP 35.9–37.2; O2SAT 93–100
[2025-02-13] MEDS: ALBUTEROL/IPRATROPIUM (Duoneb) RT SOL 3 ML NEBU INH ×4 (00:51→18:00)
[2025-02-13 01:12] LABS: Base Excess -4 (-3-3); HCO3 23 mEq/L (20-26); Inspired Oxygen, FIO2 21 %; O2 Saturation 98 % (91-98); PCO2 47 mmHg (32.0-48.0); PO2 95 mmHg (83-108)
[2025-02-13 01:13] LABS: Allen Test Performed/OK; Puncture Site Right Radial
[2025-02-13] MEDS: INSULIN LISPRO (AdmeLOG) 1 UNIT/0.01 ML UNIT SC (06:17)
[2025-02-13 07:43] LABS: Basophils % (Auto) 0 % (0-2.5); Eosinophils % (Auto) 0 % (0-10); Hematocrit 45.4 % (36.0-46.0); Hemoglobin 14.9 g/dL (12.0-16.0); Immature Granulocytes % (Auto) 1 % (0-0); Immature Granulocytes Auto 0.07 Thou/mm3 (0.00-0.00); Lymphocytes # (Auto) 0.7 Thou/mm3 (1.0-4.8); Lymphocytes % (Auto) 14 % (10-50); Mean Corpuscular HGB Conc 32.8 g/dl (31.0-37.0); Mean Corpuscular Hemoglobin 29.7 pg (25.0-35.0); Mean Corpuscular Volume 91 fL (80-100); Monocytes # (Auto) 0.3 Thou/mm3 (0.0-0.8); Monocytes % (Auto) 6 % (0-12); Neutrophils # (Auto) 3.8 Thou/mm3 (1.8-7.7); Neutrophils % (Auto) 78 % (37-80); Nucleated Red Blood Cell % 0 /100 WBC (0); Platelet Count 149 Thou/mm3 (140-440); RDW Standard Deviation 45.2 fL (36.4-46.3); Red Blood Count 5.01 Miln/mm3 (4.00-5.20); White Blood Count 4.9 Thou/mm3 (3.6-11.0)
[2025-02-13 08:01] LABS: Alanine Aminotransferase 35 U/L (10-49); Albumin/Globulin Ratio 1.6 (1.2-2.2); Alkaline Phosphatase 95 U/L (46-116); Anion Gap 7 (7-16); Aspartate Amino Transferase 32 U/L (0-34); BUN/Creatinine Ratio 14 Ratio (12-20); Bilirubin,Total 0.3 mg/dL (0.3-1.2); Blood Urea Nitrogen 13 mg/dL (9-23); Calcium 9.9 mg/dL (8.3-10.6); Calcium (Corrected) 9.9 mg/dL (8.5-10.1); Carbon Dioxide 26.7 mMol/L (20.0-31.0); Chloride 108 mMol/L (98-107); Creatinine (Component) 0.9 mg/dL (0.6-1.3); Estimated Creatinine Clearance 57.9 mL/min (>60); Globulin 2.5 gm/dL (2.3-3.5); Glucose 165 mg/dL (74-106); Magnesium 2.2 mg/dL (1.6-2.6); Osmolality,Calculated 287 (275-295); Phosphorous 1.2 mg/dL (2.4-5.1); Potassium 4.5 mMol/L (3.4-5.1); Sodium 142 mMol/L (136-145); Thyroid Stimulating Hormone 0.48 uIU/mL (0.55-4.78); Total Protein 6.5 gm/dL (5.7-8.2); eGFR > 60 See Note
[2025-02-13 08:12] LABS: Glucose Estimated Average 143 mg/dL (80-131); Hemoglobin A1C 6.6 % Hgb (4.8-6.0)
[2025-02-13] MEDS: DULoxetine HCL 20 MG CAPSULE 40 MG PO ×2 (09:03→20:41)
[2025-02-13] MEDS: ENOXAPARIN SOD INJ 40 MG/0.4 ML SYRINGE SC (09:03)
[2025-02-13] MEDS: OSELTAMIVIR 75 MG CAPSULE PO ×2 (09:03→20:41)
[2025-02-13] MEDS: PANTOPRAZOLE INJ 40 MG VIAL IVP (09:03)
[2025-02-13] MEDS: SENNA TABLET 1 TAB PO (09:03)
--- NOTE | 2025-02-13 09:59 | PC.SS ---
Patient Berta Burton is a 74-year-old female admitted for AHRF. SS conducted bedside contact with the patient to conduct initial assessment and to discuss discharge planning. Patient confirmed demographic information. Patient's surrogate decision maker is her sister, Mali Orona. Patient reports she lives at home with . Pt states she is unable to complete all ADL?s independently and needs assistance, Patient reports she does utilize a wheelchair to assist with ambulation. Patient to return back to [facility] at time of discharge. SS will assist with transportation. Discharge plan: [facility] Next of Kin, SisterMali [phone]
--- NOTE | 2025-02-13 10:28 | PCS.ST ---
Swallow Evaluation completed. See report for details. Dysphagia 3/Regular liquids.
[2025-02-13] MEDS: NAPH,KPH MBDB 1 PACKET (1.5 GM) PO (10:42)
--- NOTE | 2025-02-13 11:44 | ESPR_ITS ---
<Statement entered by Lorena Stephens MD - 02/13/25 14:18> Patient is 74-year-old female was admitted for acute encephalopathy secondary due to hypercapnia in a setting of influenza pneumonia as well as UTI. Patient was seen and examined at bedside. No acute overnight events. Labs and vitals are stable, leukocytosis has resolved, CMP unremarkable. Yesterday patient was placed at BiPAP at night, CO2 has significantly improved, down from 72-47. Azithromycin was discontinued, continue only with the Tamiflu. Will continue ceftriaxone to treat the UTI, today upon our evaluation patient was saturating at room air. Will continue current management. Questions and concerns were addressed. I personally saw and examined the patient and discussed the assessment and plan with the entire medicine team, including my attending Dr. Meeks, Lorena Stephens M.D. PGY-2 Disclaimer: Despite multiple revisions, due to the dictation software being used, the document bellow may not be free of grammatical errors including phonetic/typographic errors. However, this does not deter from our commitment to providing health care in the patient's best interest in mind Documentation for date of: 02/13/25 Subjective Subjective Interval history: Overnight admission. Seen and examined at bedside and patient was on BiPAP but was alert, following all commands, and watching TV. Thus, patient discontinued from BiPAP and breathing comfortably on room air. Otherwise, vital signs stable, CBC unremarkable, ABG showed resolved hypercapnia, CHEM panel largely unremarkable other than hypophosphatemia which was replaced. Exam Vital Signs Temp Pulse Resp BP Pulse Ox O2 Del Method O2 Flow Rate 98.9 F 86 17 126/70 98 BiPAP 7 02/13/25 08:00 02/13/25 08:00 02/13/25 08:00 02/13/25 08:00 02/13/25 08:00 02/13/25 08:00 02/13/25 03:57 FiO2 40 02/13/25 06:54 Narrative Exam General: AOx3, no acute distress, able to speak full sentences HEENT: NC/AT, mucous membranes moist, bilateral sclera anicteric Cardiovascular: regular rate and rhythm, S1/S2 present, no murmurs appreciated Pulmonary: breathing comfortably on room air, clear to auscultation bilaterally, no rales/rhonchi/wheezes Abdominal: soft, non-tender, non-distended, no rebound/guarding, normal bowel sounds present Musculoskeletal: normal ROM, no peripheral edema Skin: warm and dry, intact, no rashes Neuro: CN II-XII intact, no focal deficits Objective Labs 02/13/25 07:08 02/13/25 07:08 Labs: Laboratory Results - last 24 hr 02/12/25 02/12/25 02/12/25 16:20 16:30 16:56 WBC 5.8 RBC 5.40 H Hgb 16.3 H Hct 48.3 H MCV 89 MCH 30.2 MCHC 33.7 RDW Std Deviation 44.9 Plt Count 170 Neut % (Auto) 82 H Lymph % (Auto) 12 [place] % (Auto) 3 Eos % (Auto) 0 Baso % (Auto) 1 Neut # (Auto) 4.7 Lymph # (Auto) 0.7 L [place] # (Auto) 0.2 Eos # (Auto) 0.0 Baso # (Auto) 0.1 Immature Gran # (Auto) 0.13 H Absolute Nucleated RBC 0.00 Immature Gran % 2 H Nucleated RBC % 0 PT 11.3 INR 1.0 APTT 33.2 Puncture Site ABG pH ABG pCO2 ABG pO2 ABG HCO3 ABG O2 Saturation ABG Base Excess Oxygen Liter Flow FiO2 Sodium 133 L Potassium 4.2 Chloride 97 L Carbon Dioxide 24.2 Anion Gap 12 BUN 14 Creatinine 1.0 Estim Creat Clear Calc 53.3 L eGFR 60 BUN/Creatinine Ratio 14 [address] Glu mg/dL Hemoglobin A1c Calculated Osmolality 268 L Lactic Acid 1.2 Calcium 10.6 Corrected Calcium 10.6 H Phosphorus 2.3 L Magnesium 2.1 Total Bilirubin 0.6 AST 54 H ALT 40 Alkaline Phosphatase 103 Lactate Dehydrogenase 299 H Troponin I < 0.020 B-Natriuretic Peptide < 20 Total Protein 7.2 Albumin 4.5 Globulin 2.7 Albumin/Globulin Ratio 1.7 Lipase 35 Procalcitonin 0.56 H TSH Ur Collection Type Clean Catch Urine Color Yellow Urine Clarity Hazy Urine pH 5.5 Ur Specific [place] 1.017 Urine Protein Trace Urine Glucose (UA) Negative Urine Ketones Negative Urine Blood Negative Urine Nitrite Negative Urine Bilirubin Negative Urine Urobilinogen (Auto) Negative Ur Leukocyte Esterase Negative Urine RBC 2 Urine WBC 2 Ur Squamous Epith Cells 3 Urine Bacteria 4+ A 02/12/25 02/12/25 02/12/25 19:56 20:53 22:22 WBC RBC Hgb Hct MCV MCH MCHC RDW Std Deviation Plt Count Neut % (Auto) Lymph % (Auto) [place] % (Auto) Eos % (Auto) Baso % (Auto) Neut # (Auto) Lymph # (Auto) [place] # (Auto) Eos # (Auto) Baso # (Auto) Immature Gran # (Auto) Absolute Nucleated RBC Immature Gran % Nucleated RBC % PT INR APTT Puncture Site Left Radial Right Radial ABG pH 7.22 L 7.21 L ABG pCO2 67 H 72 H* ABG pO2 83 94 ABG HCO3 27 H 26 ABG O2 Saturation 95 96 ABG Base Excess -2 -5 L Oxygen Liter Flow 5 FiO2 40 Sodium Potassium Chloride Carbon Dioxide Anion Gap BUN Creatinine Estim Creat Clear Calc eGFR BUN/Creatinine Ratio Glucose Estimated Ave Glu mg/dL Hemoglobin A1c Calculated Osmolality Lactic Acid 0.8 Calcium Corrected Calcium Phosphorus Magnesium Total Bilirubin AST ALT Alkaline Phosphatase Lactate Dehydrogenase Troponin I B-Natriuretic Peptide Total Protein Albumin Globulin Albumin/Globulin Ratio Lipase Procalcitonin TSH Ur Collection Type Urine Color Urine Clarity Urine pH Ur Specific [place] Urine Protein Urine Glucose (UA) Urine Ketones Urine Blood Urine Nitrite Urine Bilirubin Urine Urobilinogen (Auto) Ur Leukocyte Esterase Urine RBC Urine WBC Ur Squamous Epith Cells Urine Bacteria 02/13/25 02/13/25 01:06 07:08 WBC 4.9 RBC 5.01 Hgb 14.9 Hct 45.4 MCV 91 MCH 29.7 MCHC 32.8 RDW Std Deviation 45.2 Plt Count 149 Neut % (Auto) 78 Lymph % (Auto) 14 [place] % (Auto) 6 Eos % (Auto) 0 Baso % (Auto) 0 Neut # (Auto) 3.8 Lymph # (Auto) 0.7 L [place] # (Auto) 0.3 Eos # (Auto) 0.0 Baso # (Auto) 0.0 Immature Gran # (Auto) 0.07 H Absolute Nucleated RBC 0.00 Immature Gran % 1 H Nucleated RBC % 0 PT INR APTT Puncture Site Right Radial ABG pH 7.30 L ABG pCO2 47 D ABG pO2 95 ABG HCO3 23 ABG O2 Saturation 98 ABG Base Excess -4 L Oxygen Liter Flow FiO2 21 Sodium 142 Potassium 4.5 Chloride 108 H Carbon Dioxide 26.7 Anion Gap 7 BUN 13 Creatinine 0.9 Estim Creat Clear Calc 57.9 L eGFR > 60 BUN/Creatinine Ratio 14 [address]ucose [address] Glu mg/dL 143 H Hemoglobin A1c 6.6 H Calculated Osmolality 287 Lactic Acid Calcium 9.9 Corrected Calcium 9.9 Phosphorus 1.2 L Magnesium 2.2 Total Bilirubin 0.3 AST 32 ALT 35 Alkaline Phosphatase 95 Lactate Dehydrogenase Troponin I B-Natriuretic Peptide Total Protein 6.5 Albumin 4.0 D Globulin 2.5 Albumin/Globulin Ratio 1.6 Lipase Procalcitonin TSH 0.48 L Ur Collection Type Urine Color Urine Clarity Urine pH Ur Specific [place] Urine Protein Urine Glucose (UA) Urine Ketones Urine Blood Urine Nitrite Urine Bilirubin Urine Urobilinogen (Auto) Ur Leukocyte Esterase Urine RBC Urine WBC Ur Squamous Epith Cells Urine Bacteria ABG Interpretation ABG results: 02/12/25 02/12/25 02/13/25 19:56 22:22 01:06 ABG pH 7.22 L 7.21 L 7.30 L ABG pCO2 67 H 72 H* 47 D ABG pO2 83 94 95 ABG HCO3 27 H 26 23 ABG O2 Saturation 95 96 98 ABG Base Excess -2 -5 L -4 L Quality Measures Quality Measures sepsis Current suspected stage: ruled out Possible source: genitourinary Blood cultures ordered: completed in ED Antibiotic ordered: Yes Advance care planning discussed with:: patient Assessment & Plan Assessment Current Active Medications: Generic Name Dose Route Start Last Admin Trade Name Freq PRN Reason Stop Dose Admin Acetaminophen 650 mg 02/12/25 20:08 Acetaminophen 325 Mg Tablet PO 03/14/25 20:07 Q6H PRN Fever >99.5 Acetaminophen 1,000 mg 02/13/25 09:42 Acetaminophen 500 Mg Tablet PO 03/14/25 20:07 Q6H PRN PAIN SCALE 1-3 (mild Albuterol/Ipratropium 3 ml 02/13/25 01:00 02/13/25 06:54 Albuterol/Ipratropium (Duoneb) Rt Talisha 3 Ml Nebu INH 03/15/25 00:59 3 ml Q6HRRT STEPHANI Administration Albuterol/Ipratropium 3 ml 02/12/25 20:08 Albuterol/Ipratropium (Duoneb) Rt Talisha 3 Ml Nebu INH 03/14/25 20:07 Q2HR PRN SHORTNESS OF BREATH OR WHEEZE Dextrose 25 ml 02/12/25 20:26 Dextrose 50%-Water Inj 50 Ml Syringe IV 03/14/25 20:25 Q15MIN PRN BG 50-70 responsive npo pt Dextrose 50 ml 02/12/25 20:26 Dextrose 50%-Water Inj 50 Ml Syringe IV 03/14/25 20:25 Q15MIN PRN BG <50 OR BG <70 & pt unresponsive Duloxetine HCl 40 mg 02/13/25 09:00 02/13/25 09:03 Duloxetine Hcl 20 Mg Capsule PO 03/15/25 08:59 40 mg BID STEPHANI Administration Enoxaparin Sodium 40 mg 02/13/25 09:00 02/13/25 09:03 Enoxaparin Sod Inj 40 Mg/0.4 Ml Syringe SC 02/27/25 08:59 40 mg QDAY STEPHANI Administration Glucagon 1 mg 02/12/25 20:26 Glucagon Inj 1 Mg Vial IM Q15MIN PRN BG <70, and no IV access Ceftriaxone Sodium/Dextrose 1 gm in 50 mls @ 100 mls/hr 02/13/25 21:00 Rocephin/D5w 1gm Iv Premix IV 02/20/25 20:59 QDAY@2100 [facility] Insulin Human Lispro 0 unit 02/12/25 20:30 02/13/25 11:35 Insulin Lispro (Admelog) 1 Unit/0.01 Ml Unit SC 03/14/25 20:[address] [facility] Protocol Levothyroxine Sodium 75 mcg 02/13/25 06:00 02/13/25 06:02 Levothyroxine Sodium 25 Mcg Tablet PO 03/15/25 05:[address] [facility] Ondansetron HCl 4 mg 02/12/25 20:08 Ondansetron Inj 2 Mg/Ml Inj 2 Ml IVP 03/14/25 20:07 Q6H PRN NAUSEA OR VOMITING Protocol Oseltamivir Phosphate 75 mg 02/13/25 09:00 02/13/25 09:03 Oseltamivir 75 Mg Capsule PO 02/19/25 20:59 75 mg BID STEPHANI Administration Pantoprazole Sodium 40 mg 02/13/25 09:00 02/13/25 09:03 Pantoprazole Inj 40 Mg Vial IVP 03/15/25 08:[address] [facility] Administration Sennosides 1 tab 02/13/25 09:00 02/13/25 09:03 Senna Tablet PO 03/15/25 08:59 1 tab QDAY STEPHANI Administration Protocol Plan Berta Burton is a 74-year-old female with past medical history of type 2 diabetes mellitus, hypothyroidism, and chronic pain secondary to spinal stenosis who was admitted on 02/13 for acute hypoxic and hypercapnic respiratory failure secondary to influenza pneumonia. #Acute encephalopathy #Acute hypoxic and hypercapnic respiratory failure #Influenza pneumonia A and B Presented with tachypnea, temperature 101 ?F, saturating 89% on room air, tachycardic, and diaphoretic. Positive for influenza A and B. Initial ABG showed pH 7.21 with pCO2 of 72 for which BiPAP was placed. Repeat ABG showed resolution of hypercapnia. Head CT negative. ? Tamiflu 75 mg twice daily ? DuoNebs scheduled and as needed ? Blood culture 02/12: NGTD ? BiPAP as needed #Urinary tract infection UA showed 4+ bacteria for which she was on antibiotics outpatient for 2 days prior to admission. ? Ceftriaxone (02/13-) ? Urine culture 02/12: NGTD #Type 2 diabetes mellitus A1c 6.6%. ? SSI ? Hypoglycemic protocol in place #Hypothyroidism ? Levothyroxine 75 mcg #Chronic back pain #Spinal stenosis ? Duloxetine 40 mg twice daily ? Nortriptyline 10 mg at bedtime ? Pregabalin 100 mg p.o. every 8 hours Hospital management: Disposition: IV antibiotics for UTI, Tamiflu for influenza pneumonia Diet: Carb consistent Lines: PIV DVT prophylaxis: Enoxaparin SC daily GI prophylaxis: Pantoprazole IV daily CODE STATUS: DNR ----- Plan discussed with attending physician Dr. Constantino Garcia MD PGY-1 Internal Medicine Attending Provider Attestation/Addendum I have examined the patient, reviewed labs and imaging findings, discussed the case with the resident(s), and reviewed entered orders. I agree with the plan of care as outlined in this note, with these additional summaries/recommendations: Patient seen at bedside. She reports significant improvement in shortness of breath. Patient's acute encephalopathy has resolved. Patient was diagnosed with acute hypoxic and hypercapnic respiratory failure. pCO2 on admission 72 patient was placed on BiPAP. Morning ABG shows resolution of hypercapnia and BiPAP removed. Patient found to be influenza A and B+. Continue Tamiflu and droplet precautions. Continue IV antibiotics for urinary tract infection and urine culture pending. Continue insulin sliding scale for diabetes mellitus type 2, levothyroxine for hypothyroidism, and chronic pain management for spinal stenosis. Patient updated on the plan and in agreement. All questions answered to satisfaction. Please see residents note for additional details of management. Dr. Constantino MD
[2025-02-13] MEDS: PREGABALIN 50 MG CAPSULE 100 MG PO ×2 (12:27→21:22)
[2025-02-13 12:32] LABS: Free T4 (Free Thyroxine) 1.09 ng/dL (0.89-1.76)
[2025-02-13] MEDS: SIMETHICONE 80 MG CHEW PO ×2 (13:54→21:22)
--- NOTE | 2025-02-13 14:30 | PC.SS ---
SS follow up note; Patient is on IV ABX. Patient will possibly discharge back to [facility] tomorrow.
[2025-02-13] MEDS: ACETAMINOPHEN 500 MG TABLET 1000 MG PO (16:40)
[2025-02-13] MEDS: cefTRIAXone/D5w 1gm IV premix 1 GM/50 ML BAG IV (20:40)
[2025-02-13] MEDS: SENNA/DOCUSATE SOD 1 TAB TABLET 2 TAB PO (21:22)
[2025-02-13] MEDS: LACTULOSE SYRUP 20 GM/30 ML UDC 10 GM PO (21:22)
[2025-02-14] VITALS (11 sets, daily range): BP systolic 116–140; BP diastolic 63–89; PULSE 67–103; RESP 12–95; TEMP 36.4–36.8; O2SAT 93–99
[2025-02-14] MEDS: KETOROLAC INJ 30 MG/ML VIAL 15 MG IVP (00:01)
[2025-02-14] MEDS: INSULIN LISPRO (AdmeLOG) 1 UNIT/0.01 ML UNIT SC ×3 (00:10→17:28)
[2025-02-14] MEDS: LEVOTHYROXINE SODIUM 25 MCG TABLET 75 MCG PO (05:25)
[2025-02-14] MEDS: SIMETHICONE 80 MG CHEW PO ×3 (05:26→21:00)
[2025-02-14] MEDS: PREGABALIN 50 MG CAPSULE 100 MG PO ×3 (05:26→21:00)
--- NOTE | 2025-02-14 05:41 | PC.RT ---
fio2 increased to 30% at 05:20 due to spo2 89%, improved to 94% pt tolerating bipap at this time.
[2025-02-14 06:03] LABS: Basophils % (Auto) 0 % (0-2.5); Eosinophils # (Auto) 0.1 Thou/mm3 (0.0-0.5); Eosinophils % (Auto) 2 % (0-10); Hemoglobin 13.9 g/dL (12.0-16.0); Immature Granulocytes % (Auto) 2 % (0-0); Immature Granulocytes Auto 0.08 Thou/mm3 (0.00-0.00); Lymphocytes # (Auto) 1.1 Thou/mm3 (1.0-4.8); Lymphocytes % (Auto) 28 % (10-50); Mean Corpuscular HGB Conc 33.1 g/dl (31.0-37.0); Mean Corpuscular Hemoglobin 29.8 pg (25.0-35.0); Mean Corpuscular Volume 90 fL (80-100); Monocytes # (Auto) 0.3 Thou/mm3 (0.0-0.8); Monocytes % (Auto) 8 % (0-12); Neutrophils # (Auto) 2.3 Thou/mm3 (1.8-7.7); Neutrophils % (Auto) 59 % (37-80); Nucleated Red Blood Cell % 0 /100 WBC (0); Platelet Count 155 Thou/mm3 (140-440); RDW Standard Deviation 44.6 fL (36.4-46.3); Red Blood Count 4.66 Miln/mm3 (4.00-5.20); White Blood Count 3.9 Thou/mm3 (3.6-11.0)
[2025-02-14 06:26] LABS: Alanine Aminotransferase 34 U/L (10-49); Albumin, Serum 3.8 gm/dL (3.4-4.8); Albumin/Globulin Ratio 1.6 (1.2-2.2); Alkaline Phosphatase 82 U/L (46-116); Anion Gap 12 (7-16); Aspartate Amino Transferase 37 U/L (0-34); BUN/Creatinine Ratio 21 Ratio (12-20); Bilirubin,Total 0.2 mg/dL (0.3-1.2); Blood Urea Nitrogen 19 mg/dL (9-23); Calcium 9.8 mg/dL (8.3-10.6); Carbon Dioxide 24.6 mMol/L (20.0-31.0); Chloride 104 mMol/L (98-107); Creatinine (Component) 0.9 mg/dL (0.6-1.3); Estimated Creatinine Clearance 57.9 mL/min (>60); Globulin 2.4 gm/dL (2.3-3.5); Glucose 148 mg/dL (74-106); Osmolality,Calculated 286 (275-295); Phosphorous 2.5 mg/dL (2.4-5.1); Potassium 3.6 mMol/L (3.4-5.1); Sodium 141 mMol/L (136-145); Total Protein 6.2 gm/dL (5.7-8.2); eGFR > 60 See Note
[2025-02-14] MEDS: ALBUTEROL/IPRATROPIUM (Duoneb) RT SOL 3 ML NEBU INH ×3 (07:06→19:37)
--- NOTE | 2025-02-14 08:21 | ESPR_ITS ---
Documentation for date of: 02/14/25 Subjective Subjective Interval history: Patient was seen and examined at bedside. No acute overnight events. Patient today upon our evaluation was stable x 3, appropriately answering to the questions. Blood cultures negative, urine culture is negative, patient is on Tamiflu. The patient is saturating well on room air. Continue current management. Initial discharge plan was to return the patient to the halfway facility ; however, the SNF does not have an isolation room available. Therefore, the patient will remain hospitalized to complete the Tamiflu course, which requires an additional 3 days of inpatient care. During the hospital stay, the patient has been managed with a low-dose insulin sliding scale only. The patient has been extensively counseled regarding her home insulin regimen. She reports using Lantus 30 units daily at home. Upon discharge, we plan to reduce the dose to 20 units daily, given current glycemic control. For now, continue current management. Discharge planning will be reassessed once the patient is eligible to return to the SNF. Exam Vital Signs Temp Pulse Resp BP Pulse Ox O2 Del Method O2 Flow Rate 97.9 F 88 18 128/64 99 BiPAP 7 02/14/25 04:00 02/14/25 07:06 02/14/25 07:06 02/14/25 04:00 02/14/25 07:06 02/14/25 04:00 02/13/25 03:57 FiO2 21 02/14/25 00:18 Narrative Exam GENERAL: no acute distress, AAO x3, well nourished. HEENT: Head AT/ NC. Mucous membranes moist. PERRL. NECK: Supple, no lymphadenopathy, no carotid bruits. CARDIOVASCULAR: RRR. Normal S1/S2, No m/r/g. No pitting edema of bilateral LEs. RESPIRATORY: CTAB. No wheezing, rhonchi, crackles. GASTROINTESTINAL: Abdomen soft, non tender no palpable masses. Bowel sounds present in all 4 quadrants. NEUROLOGICAL: CN II-XII grossly intact. No focal deficits. Sensation intact, symmetric. PSYCHIATRIC: Awake and alert, not agitated, normal mood and affect. Objective Labs 02/14/25 04:43 02/14/25 04:43 Labs: Laboratory Results - last 24 hr 02/13/25 02/14/25 07:08 04:43 WBC 3.9 RBC 4.66 Hgb 13.9 Hct 42.0 MCV 90 MCH 29.8 MCHC 33.1 RDW Std Deviation 44.6 Plt Count 155 Neut % (Auto) 59 Lymph % (Auto) 28 [place] % (Auto) 8 Eos % (Auto) 2 Baso % (Auto) 0 Neut # (Auto) 2.3 Lymph # (Auto) 1.1 [place] # (Auto) 0.3 Eos # (Auto) 0.1 Baso # (Auto) 0.0 Immature Gran # (Auto) 0.08 H Absolute Nucleated RBC 0.00 Immature Gran % 2 H Nucleated RBC % 0 Sodium 142 141 Potassium 4.5 3.6 D Chloride 108 H 104 Carbon Dioxide 26.7 24.6 Anion Gap 7 12 BUN 13 19 Creatinine 0.9 0.9 Estim Creat Clear Calc 57.9 L 57.9 L eGFR > 60 > 60 BUN/Creatinine Ratio 14 21 H Glucose 165 H 148 H Calculated Osmolality 287 286 Calcium 9.9 9.8 Corrected Calcium 9.9 10.0 Phosphorus 1.2 L 2.5 Magnesium 2.2 2.0 Total Bilirubin 0.3 0.2 L AST 32 37 H ALT 35 34 Alkaline Phosphatase 95 82 Total Protein 6.5 6.2 Albumin 4.0 D 3.8 Globulin 2.5 2.4 Albumin/Globulin Ratio 1.6 1.6 TSH 0.48 L Free T4 1.09 ABG Interpretation ABG results: 02/12/25 02/12/25 02/13/25 19:56 22:22 01:06 ABG pH 7.22 L 7.21 L 7.30 L ABG pCO2 67 H 72 H* 47 D ABG pO2 83 94 95 ABG HCO3 27 H 26 23 ABG O2 Saturation 95 96 98 ABG Base Excess -2 -5 L -4 L Quality Measures Quality Measures sepsis Current suspected stage: ruled out Possible source: genitourinary Blood cultures ordered: completed in ED Antibiotic ordered: Yes Advance care planning discussed with:: patient Assessment & Plan Assessment Current Active Medications: Generic Name Dose Route Start Last Admin Trade Name Freq PRN Reason Stop Dose Admin Acetaminophen 650 mg 02/12/25 20:08 Acetaminophen 325 Mg Tablet PO 03/14/25 20:07 Q6H PRN Fever >99.5 Acetaminophen 1,000 mg 02/13/25 09:42 02/13/25 16:40 Acetaminophen 500 Mg Tablet PO 03/14/25 20:07 1,000 mg Q6H PRN Administration PAIN SCALE 1-3 (mild Albuterol/Ipratropium 3 ml 02/13/25 01:00 02/14/25 07:06 Albuterol/Ipratropium (Duoneb) Rt Talisha 3 Ml Nebu INH 03/15/25 00:59 3 ml Q6HRRT STEPHANI Administration Albuterol/Ipratropium 3 ml 02/12/25 20:08 Albuterol/Ipratropium (Duoneb) Rt Talisha 3 Ml Nebu INH 03/14/25 20:07 Q2HR PRN SHORTNESS OF BREATH OR WHEEZE Dextrose 25 ml 02/12/25 20:26 Dextrose 50%-Water Inj 50 Ml Syringe IV 03/14/25 20:25 Q15MIN PRN BG 50-70 responsive npo pt Dextrose 50 ml 02/12/25 20:26 Dextrose 50%-Water Inj 50 Ml Syringe IV 03/14/25 20:25 Q15MIN PRN BG <50 OR BG <70 & pt unresponsive Duloxetine HCl 40 mg 02/13/25 09:00 02/13/25 20:41 Duloxetine Hcl 20 Mg Capsule PO 03/15/25 08:59 40 mg BID STEPHANI Administration Enoxaparin Sodium 40 mg 02/13/25 09:00 02/13/25 09:03 Enoxaparin Sod Inj 40 Mg/0.4 Ml Syringe SC 02/27/25 08:59 40 mg QDAY STEPHANI Administration Glucagon 1 mg 02/12/25 20:26 Glucagon Inj 1 Mg Vial IM Q15MIN PRN BG <70, and no IV access Ceftriaxone Sodium/Dextrose 1 gm in 50 mls @ 100 mls/hr 02/13/25 21:00 02/13/25 20:40 Rocephin/D5w 1gm Iv Premix IV 02/20/25 20:59 100 mls/hr QDAY@2100 STE[facility]ANI Administration Insulin Human Lispro 0 unit 02/12/25 20:30 02/14/25 05:34 Insulin Lispro (Admelog) 1 Unit/0.01 Ml Unit SC 03/14/25 20:29 Not Given Q6HR [facility]PH[facility] Protocol Lactulose 10 gm 02/13/25 12:03 02/13/25 21:22 Lactulose Syrup 20 Gm/30 Ml Udc PO 03/15/25 12:02 10 gm Q8HR PRN Administration Gastrointestinal Spasms Or Cramping Protocol Levothyroxine Sodium 75 mcg 02/13/25 06:00 02/14/25 05:25 Levothyroxine Sodium 25 Mcg Tablet PO 03/15/25 05:59 75 mcg ACBR STEPHANI Administration Non-Formulary Medication 145 mcg 02/14/25 09:00 Linaclotide [Linzess] PO 03/16/25 08:59 QDAY STEPHANI Non-Formulary Medication 10 mg 02/13/25 12:15 Nortriptyline PO 03/15/25 12:14 .qhs STEPHANI Ondansetron HCl 4 mg 02/12/25 20:08 Ondansetron Inj 2 Mg/Ml Inj 2 Ml IVP 03/14/25 20:07 Q6H PRN NAUSEA OR VOMITING Protocol Oseltamivir Phosphate 75 mg 02/13/25 09:00 02/13/25 20:41 Oseltamivir 75 Mg Capsule PO 02/19/25 20:59 75 mg BID STEPHANI Administration Pantoprazole Sodium 40 mg 02/13/25 09:00 02/13/25 09:03 Pantoprazole Inj 40 Mg Vial IVP 03/15/25 08:59 40 mg QDAY STEPHANI Administration Pregabalin 100 mg 02/13/25 12:15 02/14/25 05:26 Pregabalin 50 Mg Capsule PO 03/15/25 12:14 100 mg Q8HR STEPHANI Administration Sennosides 2 tab 02/13/25 12:03 02/13/25 21:22 Senna/Docusate Sod 1 Tab Tablet PO 03/15/25 12:02 2 tab BID PRN Administration constipation Protocol Simethicone 80 mg 02/13/25 14:00 02/14/25 05:26 Simethicone 80 Mg Chew PO 03/15/25 13:59 80 mg TID STEPHANI Administration Plan Berta Burton is a 74-year-old female with past medical history of type 2 diabetes mellitus, hypothyroidism, and chronic pain secondary to spinal stenosis who was admitted on 02/13 for acute hypoxic and hypercapnic respiratory failure secondary to influenza pneumonia. #Acute encephalopathy most likely metabolic in the setting of hypercapnia and UTI ?CT head was negative for hemorrhage, mass or midline shift. ?Patient is back to baseline, appropriately answering to questions, AO x 3. #Acute hypoxic and hypercapnic respiratory failure?resolved #Influenza pneumonia A and B Presented with tachypnea, temperature 101 ?F, saturating 89% on room air, tachycardic, and diaphoretic. Positive for influenza A and B. Initial ABG showed pH 7.21 with pCO2 of 72 for which BiPAP was placed. Repeat ABG showed resolution of hypercapnia. Head CT negative. ? Tamiflu 75 mg twice daily for total of 5 days. ? DuoNebs scheduled and as needed ? Blood culture 02/12: NGTD ? BiPAP as needed #Urinary tract infection UA showed 4+ bacteria for which she was on antibiotics outpatient for 2 days prior to admission. ? Ceftriaxone (02/13-) ? Urine culture 02/12: NGTD #Type 2 diabetes mellitus A1c 6.6%. ? SSI ? Hypoglycemic protocol in place ? She reports using Lantus 30 units daily at home as needed. Upon discharge, we plan to reduce the dose to 20 units daily, given current glycemic control. #Hypothyroidism ? Levothyroxine 75 mcg #Chronic back pain #Spinal stenosis ? Duloxetine 40 mg twice daily ? Nortriptyline 10 mg at bedtime ? Pregabalin 100 mg p.o. every 8 hours Hospital management: Disposition: IV antibiotics for UTI, Tamiflu for influenza pneumonia. Patient coming from SNF and will be discharged back to SNF. However Patient will remain hospitalized to complete the Tamiflu course, which requires an additional 3 days of inpatient care. Diet: Carb consistent Lines: PIV DVT prophylaxis: Enoxaparin SC daily GI prophylaxis: Pantoprazole IV daily CODE STATUS: DNR Patient care was discussed with attending physician Dr. Michelle Stephens MD PGY-2 Attending Provider Attestation/Addendum I attest that I was physically present for the evaluation, physical examination, lab and imaging review of the patient with the residents. I discussed the case with the residents and agree with the findings and plans of care as documented above. At bedside today, patient appears comfortable, saturating well on room air. Denies any new complaints. Continues to be on Tamiflu for influenza and Rocephin for UTI. Potassium level noted to be 3.6 this morning, repleted accordingly. Culture results have been negative so far. Patient's blood glucose have been well-controlled on sliding scale. But she takes Lantus 30 units daily along with Rybelsus, hemoglobin A1c is less than 7. We will plan on decreasing her Lantus dosing on discharge. Patient was initially planned for discharge on oral Augmentin and Tamiflu but she is not able to go back to her SNF as they did not have isolation room available. Patient will complete her Tamiflu course and will be able to discharge after. Mery Martinez MD
[2025-02-14] MEDS: PANTOPRAZOLE INJ 40 MG VIAL IVP (09:10)
[2025-02-14] MEDS: ENOXAPARIN SOD INJ 40 MG/0.4 ML SYRINGE SC (09:10)
[2025-02-14] MEDS: DULoxetine HCL 20 MG CAPSULE 40 MG PO ×2 (09:10→21:00)
[2025-02-14] MEDS: OSELTAMIVIR 75 MG CAPSULE PO ×2 (09:10→21:00)
[2025-02-14] MEDS: POTASSIUM CHLORIDE 20 mEq TABCR 40 MEQ PO (10:00)
--- NOTE | 2025-02-14 10:14 | PC.SS ---
Addendum entered by MARIO Elmore 02/14/25 10:24: SS update: Mary Jo at [facility] informs patient is unable to return today to facility due to patient being flu positive and no isolation room available. Updated resident Dr. Stephens. Original Note: SS follow up: Sent updated clinicals to [facility] as the patient has d/c orders today and they are requesting to review to determine if the patient can return back.
[2025-02-14] MEDS: LACTULOSE SYRUP 20 GM/30 ML UDC 10 GM PO (12:36)
[2025-02-14] MEDS: SENNA/DOCUSATE SOD 1 TAB TABLET 2 TAB PO (12:36)
[2025-02-14] MEDS: ACETAMINOPHEN 500 MG TABLET 1000 MG PO (19:35)
[2025-02-14] MEDS: cefTRIAXone/D5w 1gm IV premix 1 GM/50 ML BAG IV (21:01)
[2025-02-15] VITALS (13 sets, daily range): BP systolic 128–148; BP diastolic 68–86; PULSE 62–90; RESP 12–95; TEMP 36.1–36.2; O2SAT 93–100; BMI 36.8
[2025-02-15] MEDS: ALBUTEROL/IPRATROPIUM (Duoneb) RT SOL 3 ML NEBU INH ×3 (00:20→13:35)
[2025-02-15] MEDS: INSULIN LISPRO (AdmeLOG) 1 UNIT/0.01 ML UNIT SC ×2 (05:24→20:14)
[2025-02-15] MEDS: PREGABALIN 50 MG CAPSULE 100 MG PO ×3 (05:25→21:46)
[2025-02-15] MEDS: SIMETHICONE 80 MG CHEW PO ×3 (05:25→21:47)
[2025-02-15] MEDS: LEVOTHYROXINE SODIUM 25 MCG TABLET 75 MCG PO (05:25)
[2025-02-15 05:29] LABS: Basophils # (Auto) 0.1 Thou/mm3 (0.0-0.2); Basophils % (Auto) 1 % (0-2.5); Eosinophils # (Auto) 0.1 Thou/mm3 (0.0-0.5); Eosinophils % (Auto) 3 % (0-10); Hemoglobin 13.8 g/dL (12.0-16.0); Immature Granulocytes % (Auto) 2 % (0-0); Immature Granulocytes Auto 0.08 Thou/mm3 (0.00-0.00); Lymphocytes # (Auto) 2.4 Thou/mm3 (1.0-4.8); Lymphocytes % (Auto) 51 % (10-50); Mean Corpuscular HGB Conc 33.7 g/dl (31.0-37.0); Mean Corpuscular Hemoglobin 29.9 pg (25.0-35.0); Mean Corpuscular Volume 89 fL (80-100); Monocytes # (Auto) 0.6 Thou/mm3 (0.0-0.8); Monocytes % (Auto) 12 % (0-12); Neutrophils # (Auto) 1.4 Thou/mm3 (1.8-7.7); Neutrophils % (Auto) 31 % (37-80); Nucleated Red Blood Cell % 0 /100 WBC (0); Platelet Count 166 Thou/mm3 (140-440); RDW Standard Deviation 44.6 fL (36.4-46.3); Red Blood Count 4.61 Miln/mm3 (4.00-5.20); White Blood Count 4.6 Thou/mm3 (3.6-11.0)
[2025-02-15 05:53] LABS: Alanine Aminotransferase 33 U/L (10-49); Albumin, Serum 3.9 gm/dL (3.4-4.8); Albumin/Globulin Ratio 1.6 (1.2-2.2); Alkaline Phosphatase 82 U/L (46-116); Anion Gap 10 (7-16); Aspartate Amino Transferase 31 U/L (0-34); BUN/Creatinine Ratio 13 Ratio (12-20); Bilirubin,Total 0.3 mg/dL (0.3-1.2); Blood Urea Nitrogen 9 mg/dL (9-23); Calcium 9.8 mg/dL (8.3-10.6); Calcium (Corrected) 9.9 mg/dL (8.5-10.1); Chloride 104 mMol/L (98-107); Creatinine (Component) 0.7 mg/dL (0.6-1.3); Estimated Creatinine Clearance 74.5 mL/min (>60); Globulin 2.4 gm/dL (2.3-3.5); Glucose 159 mg/dL (74-106); Magnesium 1.7 mg/dL (1.6-2.6); Osmolality,Calculated 279 (275-295); Phosphorous 2.8 mg/dL (2.4-5.1); Potassium 4.4 mMol/L (3.4-5.1); Sodium 139 mMol/L (136-145); Total Protein 6.3 gm/dL (5.7-8.2); eGFR > 60 See Note
[2025-02-15] MEDS: OSELTAMIVIR 75 MG CAPSULE PO ×2 (08:13→20:14)
[2025-02-15] MEDS: DULoxetine HCL 20 MG CAPSULE 40 MG PO ×2 (08:13→20:14)
[2025-02-15] MEDS: ENOXAPARIN SOD INJ 40 MG/0.4 ML SYRINGE SC (08:13)
[2025-02-15] MEDS: PANTOPRAZOLE INJ 40 MG VIAL IVP (08:13)
--- NOTE | 2025-02-15 10:02 | PD.RESPRO ---
Documentation for date of: 02/15/25 Subjective Subjective Interval history: No acute overnight events. Seen and examined at bedside and patient does not have new complaints and denies any shortness of breath. Facility does not have an isolation room and requesting the patient finish her course of Tamiflu while in hospital, last day to be on 02/17. Vital signs and labs stable and will discontinue morning labs. Exam Vital Signs Temp Pulse Resp BP Pulse Ox O2 Del Method O2 Flow Rate 97.2 F 90 20 128/86 H 93 L Room Air 7 02/15/25 07:45 02/15/25 08:00 02/15/25 07:45 02/15/25 07:45 02/15/25 07:45 02/15/25 07:45 02/13/25 03:57 FiO2 21 02/15/25 00:21 Narrative Exam General: AOx3, no acute distress, able to speak full sentences HEENT: NC/AT, mucous membranes moist, bilateral sclera anicteric Cardiovascular: regular rate and rhythm, S1/S2 present, no murmurs appreciated Pulmonary: breathing comfortably on room air, clear to auscultation bilaterally, no rales/rhonchi/wheezes Abdominal: soft, non-tender, non-distended, no rebound/guarding, normal bowel sounds present Musculoskeletal: normal ROM, no peripheral edema Skin: warm and dry, intact, no rashes Neuro: CN II-XII intact, no focal deficits Objective Labs 02/15/25 04:07 02/15/25 04:07 Labs: Laboratory Results - last 24 hr 02/15/25 04:07 WBC 4.6 RBC 4.61 Hgb 13.8 Hct 41.0 MCV 89 MCH 29.9 MCHC 33.7 RDW Std Deviation 44.6 Plt Count 166 Neut % (Auto) 31 L Lymph % (Auto) 51 H Nuckolls % (Auto) 12 Eos % (Auto) 3 Baso % (Auto) 1 Neut # (Auto) 1.4 L Lymph # (Auto) 2.4 [place]olls # (Auto) 0.6 Eos # (Auto) 0.1 Baso # (Auto) 0.1 Immature Gran # (Auto) 0.08 H Absolute Nucleated RBC 0.00 Immature Gran % 2 H Nucleated RBC % 0 Sodium 139 Potassium 4.4 D Chloride 104 Carbon Dioxide 25.0 Anion Gap 10 BUN 9 Creatinine 0.7 Estim Creat Clear Calc 74.5 eGFR > 60 BUN/Creatinine Ratio 13 Glucose 159 H Calculated Osmolality 279 Calcium 9.8 Corrected Calcium 9.9 Phosphorus 2.8 Magnesium 1.7 Total Bilirubin 0.3 AST 31 ALT 33 Alkaline Phosphatase 82 Total Protein 6.3 Albumin 3.9 Globulin 2.4 Albumin/Globulin Ratio 1.6 ABG Interpretation ABG results: 02/12/25 02/12/25 02/13/25 19:56 22:22 01:06 ABG pH 7.22 L 7.21 L 7.30 L ABG pCO2 67 H 72 H* 47 D ABG pO2 83 94 95 ABG HCO3 27 H 26 23 ABG O2 Saturation 95 96 98 ABG Base Excess -2 -5 L -4 L Quality Measures Quality Measures sepsis Current suspected stage: ruled out Possible source: genitourinary Blood cultures ordered: completed in ED Antibiotic ordered: No Advance care planning discussed with:: patient Assessment & Plan Assessment Current Active Medications: Generic Name Dose Route Start Last Admin Trade Name Freq PRN Reason Stop Dose Admin Acetaminophen 650 mg 02/12/25 20:08 Acetaminophen 325 Mg Tablet PO 03/14/25 20:07 Q6H PRN Fever >99.5 Acetaminophen 1,000 mg 02/13/25 09:42 02/14/25 19:35 Acetaminophen 500 Mg Tablet PO 03/14/25 20:07 1,000 mg Q6H PRN Administration PAIN SCALE 1-3 (mild Albuterol/Ipratropium 3 ml 02/13/25 01:00 02/15/25 06:27 Albuterol/Ipratropium (Duoneb) Rt Talisha 3 Ml Nebu INH 03/15/25 00:59 3 ml Q6HRRT STEPHANI Administration Albuterol/Ipratropium 3 ml 02/12/25 20:08 Albuterol/Ipratropium (Duoneb) Rt Talisha 3 Ml Nebu INH 03/14/25 20:07 Q2HR PRN SHORTNESS OF BREATH OR WHEEZE Dextrose 25 ml 02/12/25 20:26 Dextrose 50%-Water Inj 50 Ml Syringe IV 03/14/25 20:25 Q15MIN PRN BG 50-70 responsive npo pt Dextrose 50 ml 02/12/25 20:26 Dextrose 50%-Water Inj 50 Ml Syringe IV 03/14/25 20:25 Q15MIN PRN BG <50 OR BG <70 & pt unresponsive Duloxetine HCl 40 mg 02/13/25 09:00 02/15/25 08:13 Duloxetine Hcl 20 Mg Capsule PO 03/15/25 08:59 40 mg BID STEPHANI Administration Enoxaparin Sodium 40 mg 02/13/25 09:00 02/15/25 08:13 Enoxaparin Sod Inj 40 Mg/0.4 Ml Syringe SC 02/27/25 08:59 40 mg QDAY STEPHANI Administration Glucagon 1 mg 02/12/25 20:26 Glucagon Inj 1 Mg Vial IM Q15MIN PRN BG <70, and no IV access Ceftriaxone Sodium/Dextrose 1 gm in 50 mls @ 100 mls/hr 02/13/25 21:00 02/14/25 21:01 Rocephin/D5w 1gm Iv Premix IV 02/20/25 20:59 100 mls/hr QDAY@2100 STEPHANI Administration Insulin Human Lispro 0 unit 02/12/25 20:30 02/15/25 05:24 Insulin Lispro (Admelog) 1 Unit/0.01 Ml Unit SC 03/14/25 20:29 1 unit Q6HR STEPHANI Administration Protocol Lactulose 10 gm 02/13/25 12:03 02/14/25 12:36 Lactulose Syrup 20 Gm/30 Ml Udc PO 03/15/25 12:02 10 gm Q8HR PRN Administration Gastrointestinal Spasms Or Cramping Protocol Levothyroxine Sodium 75 mcg 02/13/25 06:00 02/15/25 05:25 Levothyroxine Sodium 25 Mcg Tablet PO 03/15/25 05:59 75 mcg ACBR STEPHANI Administration Non-Formulary Medication 145 mcg 02/14/25 09:00 02/15/25 08:35 Linaclotide [Linzess] PO 03/16/25 08:59 Not Given QDAY STEPHANI Non-Formulary Medication 10 mg 02/13/25 12:15 Nortriptyline PO 03/15/25 12:14 .qhs STEPHANI Ondansetron HCl 4 mg 02/12/25 20:08 Ondansetron Inj 2 Mg/Ml Inj 2 Ml IVP 03/14/25 20:07 Q6H PRN NAUSEA OR VOMITING Protocol Oseltamivir Phosphate 75 mg 02/13/25 09:00 02/15/25 08:13 Oseltamivir 75 Mg Capsule PO 02/19/25 20:59 75 mg BID STEPHANI Administration Pantoprazole Sodium 40 mg 02/13/25 09:00 02/15/25 08:13 Pantoprazole Inj 40 Mg Vial IVP 03/15/25 08:59 40 mg QDAY STEPHANI Administration Pregabalin 100 mg 02/13/25 12:15 02/15/25 05:25 Pregabalin 50 Mg Capsule PO 03/15/25 12:14 100 mg Q8HR STEPHANI Administration Sennosides 2 tab 02/13/25 12:03 02/14/25 12:36 Senna/Docusate Sod 1 Tab Tablet PO 03/15/25 12:02 2 tab BID PRN Administration constipation Protocol Simethicone 80 mg 02/13/25 14:00 02/15/25 05:25 Simethicone 80 Mg Chew PO 03/15/25 13:59 80 mg TID STEPHANI Administration Plan Berta Burton is a 74-year-old female with past medical history of type 2 diabetes mellitus, hypothyroidism, and chronic pain secondary to spinal stenosis who was admitted on 02/13 for acute hypoxic and hypercapnic respiratory failure secondary to influenza pneumonia. #Acute encephalopathy most likely metabolic in the setting of hypercapnia and UTI, resolved CT head was negative for hemorrhage, mass or midline shift. Patient is back to baseline, appropriately answering to questions, AO x 3. #Acute hypoxic and hypercapnic respiratory failure, resolvedresolved #Influenza pneumonia A and B #MRSA nares positive Presented with tachypnea, temperature 101 ?F, saturating 89% on room air, tachycardic, and diaphoretic. Positive for influenza A and B. Initial ABG showed pH 7.21 with pCO2 of 72 for which BiPAP was placed. Repeat ABG showed resolution of hypercapnia. Head CT negative. ? Tamiflu 75 mg twice daily for total of 5 days (last day 02/17) ? DuoNebs scheduled and as needed ? Blood culture 02/12: NGTD ? BiPAP as needed ? Mupirocin x 1 #Urinary tract infection UA showed 4+ bacteria for which she was on antibiotics outpatient for 2 days prior to admission. ? Ceftriaxone (02/13-) ? Urine culture 02/12: NGTD #Type 2 diabetes mellitus A1c 6.6%. ? SSI ? Hypoglycemic protocol in place ? Reports using Lantus 30 units daily at home and upon discharge, will reduce the dose to 20 units daily, given current glycemic control #Hypothyroidism ? Levothyroxine 75 mcg #Chronic back pain #Spinal stenosis ? Duloxetine 40 mg twice daily ? Nortriptyline 10 mg at bedtime ? Pregabalin 100 mg p.o. every 8 hours Hospital management: Disposition: IV antibiotics for UTI, Tamiflu for influenza pneumonia, coming from SNF and will be discharged back to SNF Diet: Carb consistent, dysphagia 3 -> will ask speech therapy to reevaluate Lines: PIV DVT prophylaxis: Enoxaparin SC daily GI prophylaxis: Pantoprazole IV daily CODE STATUS: DNR ----- Plan discussed with attending physician Dr. Michelle Garcia MD PGY-1 Internal Medicine Attending Provider Attestation/Addendum I attest that I was physically present for the evaluation, physical examination, lab and imaging review of the patient with the residents. I discussed the case with the residents and agree with the findings and plans of care as documented above. At bedside today, patient states she is feeling well and denies any new complaints. Saturating well on room air. Lab results are also stable. Continues to be on Tamiflu for influenza, Rocephin for UTI. Cultures have been negative. Patient is medically clear for discharge, awaiting completion of Tamiflu course for placement to SNF. Mery Martinez MD
[2025-02-15] MEDS: MUPIROCIN OINT 2% 15 GM TUBE TOP (10:42)
[2025-02-15] MEDS: ACETAMINOPHEN 500 MG TABLET 1000 MG PO (14:08)
--- NOTE | 2025-02-15 14:51 | PC.SS ---
Rounding note: patient to remain in hospital for remainder of tamiflu regimen unless isolation room becomes available at [facility], where patient is from.
[2025-02-15] MEDS: LACTULOSE SYRUP 20 GM/30 ML UDC 10 GM PO (15:12)
[2025-02-15] MEDS: cefTRIAXone/D5w 1gm IV premix 1 GM/50 ML BAG IV (20:14)
--- NOTE | 2025-02-15 20:24 | XR_ITS ---
Examination: Abdomen AP single view Technique: AP portable supine abdomen, single view Exam date and time: February 15, 2025 at 2037 hours INDICATIONS: Abdominal pain today. FINDINGS: Large rectal stool throughout the colon No obstruction No free air IMPRESSION: Large amounts of stool throughout the colon
--- NOTE | 2025-02-15 20:25 | PC.NURSE ---
Doctor Charlie arrived on unit to consult patient. ordered xray of the abdomen. Nurse tried contacting xray department. No answer. Will call again.
[2025-02-15] MEDS: POLYETHYLENE GLYCOL 17 GM PACKET PO (22:02)
[2025-02-15] MEDS: LACTULOSE SYRUP 20 GM/30 ML UDC 30 GM PO (22:02)
[2025-02-16] VITALS (10 sets, daily range): BP systolic 129–154; BP diastolic 72–89; PULSE 72–106; RESP 12–96; TEMP 36.1–36.5; O2SAT 94–97
[2025-02-16] MEDS: ACETAMINOPHEN 500 MG TABLET 1000 MG PO (04:03)
[2025-02-16] MEDS: LEVOTHYROXINE SODIUM 25 MCG TABLET 75 MCG PO (05:42)
[2025-02-16] MEDS: SIMETHICONE 80 MG CHEW PO ×3 (05:43→21:21)
[2025-02-16] MEDS: PREGABALIN 50 MG CAPSULE 100 MG PO ×3 (05:43→21:20)
[2025-02-16] MEDS: INSULIN LISPRO (AdmeLOG) 1 UNIT/0.01 ML UNIT SC ×3 (07:33→21:36)
[2025-02-16] MEDS: OSELTAMIVIR 75 MG CAPSULE PO ×2 (08:41→21:20)
[2025-02-16] MEDS: PANTOPRAZOLE INJ 40 MG VIAL IVP (08:41)
[2025-02-16] MEDS: DULoxetine HCL 20 MG CAPSULE 40 MG PO ×2 (08:41→21:21)
[2025-02-16] MEDS: ENOXAPARIN SOD INJ 40 MG/0.4 ML SYRINGE SC (08:41)
--- NOTE | 2025-02-16 09:49 | PD.RESPRO ---
Documentation for date of: 02/16/25 Subjective Subjective Interval history: No acute overnight events. Seen and examined at bedside and patient was stating that she had not had a bowel bowel movement since admission but noted to have a large bowel movement shortly thereafter. Otherwise, tomorrow will be last dose of Tamiflu and patient will then be able to return back to her facility. She has no complaints at this time and saturating well on room air. Exam Vital Signs Temp Pulse Resp BP Pulse Ox O2 Del Method O2 Flow Rate 97.6 F 87 18 129/73 96 Oxy Mask 3 02/16/25 08:00 02/16/25 08:00 02/16/25 08:00 02/16/25 08:00 02/16/25 08:00 02/16/25 08:00 02/16/25 08:00 FiO2 21 02/16/25 05:00 Narrative Exam General: AOx3, no acute distress, able to speak full sentences HEENT: NC/AT, mucous membranes moist, bilateral sclera anicteric Cardiovascular: regular rate and rhythm, S1/S2 present, no murmurs appreciated Pulmonary: breathing comfortably on room air, clear to auscultation bilaterally, no rales/rhonchi/wheezes Abdominal: soft, non-tender, non-distended, no rebound/guarding, normal bowel sounds present Musculoskeletal: normal ROM, no peripheral edema Skin: warm and dry, intact, no rashes Neuro: CN II-XII intact, no focal deficits Objective Labs 02/15/25 04:07 02/15/25 04:07 ABG Interpretation ABG results: 02/12/25 02/12/25 02/13/25 19:56 22:22 01:06 ABG pH 7.22 L 7.21 L 7.30 L ABG pCO2 67 H 72 H* 47 D ABG pO2 83 94 95 ABG HCO3 27 H 26 23 ABG O2 Saturation 95 96 98 ABG Base Excess -2 -5 L -4 L Quality Measures Quality Measures sepsis Current suspected stage: ruled out Possible source: genitourinary Blood cultures ordered: completed in ED Antibiotic ordered: No Advance care planning discussed with:: patient Assessment & Plan Assessment Current Active Medications: Generic Name Dose Route Start Last Admin Trade Name Freq PRN Reason Stop Dose Admin Acetaminophen 650 mg 02/12/25 20:08 Acetaminophen 325 Mg Tablet PO 03/14/25 20:07 Q6H PRN Fever >99.5 Acetaminophen 1,000 mg 02/13/25 09:42 02/16/25 04:03 Acetaminophen 500 Mg Tablet PO 03/14/25 20:07 1,000 mg Q6H PRN Administration PAIN SCALE 1-3 (mild Albuterol/Ipratropium 3 ml 02/12/25 20:08 Albuterol/Ipratropium (Duoneb) Rt Talisha 3 Ml Nebu INH 03/14/25 20:07 Q2HR PRN SHORTNESS OF BREATH OR WHEEZE Dextrose 25 ml 02/12/25 20:26 Dextrose 50%-Water Inj 50 Ml Syringe IV 03/14/25 20:25 Q15MIN PRN BG 50-70 responsive npo pt Dextrose 50 ml 02/12/25 20:26 Dextrose 50%-Water Inj 50 Ml Syringe IV 03/14/25 20:25 Q15MIN PRN BG <50 OR BG <70 & pt unresponsive Duloxetine HCl 40 mg 02/13/25 09:00 02/16/25 08:41 Duloxetine Hcl 20 Mg Capsule PO 03/15/25 08:59 40 mg BID STEPHANI Administration Enoxaparin Sodium 40 mg 02/13/25 09:00 02/16/25 08:41 Enoxaparin Sod Inj 40 Mg/0.4 Ml Syringe SC 02/27/25 08:59 40 mg QDAY STEPHANI Administration Glucagon 1 mg 02/12/25 20:26 Glucagon Inj 1 Mg Vial IM Q15MIN PRN BG <70, and no IV access Ceftriaxone Sodium/Dextrose 1 gm in 50 mls @ 100 mls/hr 02/13/25 21:00 02/15/25 20:14 Rocephin/D5w 1gm Iv Premix IV 02/20/25 20:59 100 mls/hr QDAY@2100 STEPHANI Administration Insulin Human Lispro 0 unit 02/15/25 21:00 02/16/25 07:33 Insulin Lispro (Admelog) 1 Unit/0.01 Ml Unit SC 03/17/25 20:59 1 unit ACHS STEPHANI Administration Protocol Lactulose 20 gm 02/16/25 14:00 Lactulose Syrup 20 Gm/30 Ml Udc PO 03/18/25 13:59 Q8HR STEPHANI Protocol Levothyroxine Sodium 75 mcg 02/13/25 06:00 02/16/25 05:42 Levothyroxine Sodium 25 Mcg Tablet PO 03/15/25 05:59 75 mcg ACBR STEPHANI Administration Non-Formulary Medication 145 mcg 02/14/25 09:00 02/16/25 09:37 Linaclotide [Linzess] PO 03/16/25 08:59 Not Given QDAY STEPHANI Non-Formulary Medication 10 mg 02/13/25 12:15 Nortriptyline PO 03/15/25 12:14 .qhs STEPHANI Ondansetron HCl 4 mg 02/12/25 20:08 Ondansetron Inj 2 Mg/Ml Inj 2 Ml IVP 03/14/25 20:07 Q6H PRN NAUSEA OR VOMITING Protocol Oseltamivir Phosphate 75 mg 02/13/25 09:00 02/16/25 08:41 Oseltamivir 75 Mg Capsule PO 02/19/25 20:59 75 mg BID STEPHANI Administration Pantoprazole Sodium 40 mg 02/13/25 09:00 02/16/25 08:41 Pantoprazole Inj 40 Mg Vial IVP 03/15/25 08:59 40 mg QDAY STEPHANI Administration Pregabalin 100 mg 02/13/25 12:15 02/16/25 05:43 Pregabalin 50 Mg Capsule PO 03/15/25 12:14 100 mg Q8HR STEPHANI Administration Sennosides 2 tab 02/13/25 12:03 02/14/25 12:36 Senna/Docusate Sod 1 Tab Tablet PO 03/15/25 12:02 2 tab BID PRN Administration constipation Protocol Simethicone 80 mg 02/13/25 14:00 02/16/25 05:43 Simethicone 80 Mg Chew PO 03/15/25 13:59 80 mg TID STEPHANI Administration Plan Berta Burton is a 74-year-old female with past medical history of type 2 diabetes mellitus, hypothyroidism, and chronic pain secondary to spinal stenosis who was admitted on 02/13 for acute hypoxic and hypercapnic respiratory failure secondary to influenza pneumonia. #Acute encephalopathy most likely metabolic in the setting of hypercapnia and UTI, resolved CT head was negative for hemorrhage, mass or midline shift. Patient is back to baseline, appropriately answering to questions, AO x 3. #Acute hypoxic and hypercapnic respiratory failure, resolved #Influenza pneumonia A and B #MRSA nares positive Presented with tachypnea, temperature 101 ?F, saturating 89% on room air, tachycardic, and diaphoretic. Positive for influenza A and B. Initial ABG showed pH 7.21 with pCO2 of 72 for which BiPAP was placed. Repeat ABG showed resolution of hypercapnia. Head CT negative. ? Tamiflu 75 mg twice daily for total of 5 days (last day 02/17) ? DuoNebs scheduled and as needed ? Blood culture 02/12: NGTD ? BiPAP as needed ? Mupirocin x 1 (02/15) #Urinary tract infection UA showed 4+ bacteria for which she was on antibiotics outpatient for 2 days prior to admission. ? Ceftriaxone (02/13-) ? Urine culture 02/12: no growth #Type 2 diabetes mellitus A1c 6.6%. ? SSI ? Hypoglycemic protocol in place ? Reports using Lantus 30 units daily at home and upon discharge, will reduce the dose to 20 units daily, given current glycemic control #Hypothyroidism ? Levothyroxine 75 mcg #Chronic back pain #Spinal stenosis ? Duloxetine 40 mg twice daily ? Nortriptyline 10 mg at bedtime ? Pregabalin 100 mg p.o. every 8 hours Hospital management: Disposition: IV antibiotics for UTI, Tamiflu for influenza pneumonia, coming from SNF and will be discharged back to SNF Diet: Carb consistent, dysphagia 3 -> will ask speech therapy to reevaluate Lines: PIV DVT prophylaxis: Enoxaparin SC daily GI prophylaxis: Pantoprazole IV daily CODE STATUS: DNR ----- Plan discussed with attending physician Dr. Michelle Garcia MD PGY-1 Internal Medicine Attending Provider Attestation/Addendum I attest that I was physically present for the evaluation, physical examination, lab and imaging review of the patient with the residents. I discussed the case with the residents and agree with the findings and plans of care as documented above. At bedside today, patient is states she does not have any complaints, appears comfortable, saturating well on room air. Continues to be on Tamiflu and IV Rocephin for influenza pneumonia and UTI. Awaiting completion of Tamiflu to be discharged to SNF. Has not had bowel movements, started on bowel regimen. Mery Martinez MD
--- NOTE | 2025-02-16 10:10 | PC.NURSE ---
inform of patient of BM at 1010, will hold enema per
--- NOTE | 2025-02-16 10:42 | PC.SS ---
`Follow up note: SS spoke to Mary Jo @ [facility] who states patient can return but he needs an iso bed. They currently don't have one. Floor nurse states patient will end Tamiflu on the .
[2025-02-16] MEDS: LACTULOSE SYRUP 20 GM/30 ML UDC PO ×2 (14:12→21:21)
[2025-02-16] MEDS: cefTRIAXone/D5w 1gm IV premix 1 GM/50 ML BAG IV (21:22)
[2025-02-17] VITALS (10 sets, daily range): BP systolic 117–135; BP diastolic 68–76; PULSE 70–96; RESP 12–97; TEMP 36.2–37.1; O2SAT 94–98
[2025-02-17] MEDS: ONDANSETRON INJ 2 MG/ML INJ 2 ML 4 MG IVP (00:08)
[2025-02-17] MEDS: SIMETHICONE 80 MG CHEW PO ×2 (05:52→14:51)
[2025-02-17] MEDS: LACTULOSE SYRUP 20 GM/30 ML UDC PO (05:52)
[2025-02-17] MEDS: LEVOTHYROXINE SODIUM 25 MCG TABLET 75 MCG PO (05:52)
[2025-02-17] MEDS: PREGABALIN 50 MG CAPSULE 100 MG PO ×2 (05:53→14:51)
--- NOTE | 2025-02-17 06:00 | PC.NURSE ---
bipap removed per pt request.
[2025-02-17] MEDS: DULoxetine HCL 20 MG CAPSULE 40 MG PO (08:06)
[2025-02-17] MEDS: INSULIN LISPRO (AdmeLOG) 1 UNIT/0.01 ML UNIT SC (08:06)
[2025-02-17] MEDS: OSELTAMIVIR 75 MG CAPSULE PO (08:07)
[2025-02-17] MEDS: ENOXAPARIN SOD INJ 40 MG/0.4 ML SYRINGE SC (08:07)
[2025-02-17] MEDS: PANTOPRAZOLE INJ 40 MG VIAL IVP (08:07)
--- NOTE | 2025-02-17 12:04 | PC.SS ---
Follow up note: SS spoke to Mary Jo @ [facility] and they are agreeable to take patient today. SS set up gurney transport through [facility] with a referene# [id number] for 3-4p.m. today
[2025-02-17] MEDS: PANTOPRAZOLE 40 MG TABLET PO (12:46)
--- NOTE | 2025-02-17 13:32 | ESDS_ITS ---
Planned Discharge Date 02/17/25 DS: Providers Provider Date of admission: 02/12/25 20:08 Primary care physician: Physician No Primary/Family Admitting Provider: Danny Arora MD Attending Provider on Admission: Mery Martinez MD Consults: 02/12/25 20:35 Referral Speech Therapy Stat Comment: 02/14/25 00:44 Referral Physical Therapy Routine Comment: Physician Instructions: Instructions: use walker at half-way Attending Provider on DC: Travis Garcia MD Discharging Provider: Travis Garcia MD DS: Diagnosis Problem List Completed Was Problem List Reviewed/Reconciled?: Yes Hospital Course Hospital Course Hospital course: Berta Burton is a 74-year-old female with past medical history of type 2 diabetes mellitus, hypothyroidism, and chronic pain secondary to spinal stenosis who was admitted on 02/13 for acute hypoxic and hypercapnic respiratory failure secondary to influenza pneumonia. Initially presented from facility for generalized weakness but no shortness of breath or cough noted. Found to be positive for influenza AMB in ED for which she was started on Tamiflu. Also started on ceftriaxone and azithromycin for CAP coverage. Patient only required BiPAP for 1 night and ABG significantly improved and CPAP thereafter for sleep apnea. On second day of hospitalization, patient was able to breathe comfortably on room air and stable for discharge but her facility states that they do not have an isolation room and asking that patient finish her Tamiflu course here in house. Vital signs remained stable throughout hospital course and stopped trending labs on 02/13 as CBC and CHEM panel were unremarkable. Blood and urine cultures were negative, MRSA nares came back positive was given one-time dose of mupirocin. After finishing Tamiflu course, patient was able to be discharged back to her facility. Diagnoses during admission: #Acute encephalopathy most likely metabolic in the setting of hypercapnia and UTI, resolved #Acute hypoxic and hypercapnic respiratory failure, resolved #Influenza pneumonia A and B #MRSA nares positive #Urinary tract infection #Type 2 diabetes mellitus #Hypothyroidism #Chronic back pain #Spinal stenosis Discharge instructions: ? Take amoxicillin-clavulanate for two more days to finish antibiotic course ? Cyclobenzaprine, oxycodone, and rybelsus were held until follow-up with PCP ? Your insulin degludec/Tresiba was decreased from 30 units to 20 units daily ? Continue taking all other home medications as prescribed ? Follow-up with PCP within 1-2 weeks of discharge ? If you do not have a PCP, you can follow-up at the [facility] (you can call [phone] to make an appointment) ? If you wish to follow-up with Dr. Garcia, schedule appointment on Thursday afternoons ? Return to ED if symptoms worsen or recur ----- Plan discussed with attending physician Dr. Michelle Garcia MD PGY-1 Internal Medicine Time Spent with Patient Time attestation: Total time spent providing and/or coordinating discharge services: Time spent: Greater than 30 minutes Exam Vital Signs Temp Pulse Resp BP Pulse Ox O2 Del Method O2 Flow Rate 98.8 F 82 20 127/76 95 Room Air 3 02/17/25 12:00 02/17/25 12:00 02/17/25 12:00 02/17/25 12:00 02/17/25 12:00 02/17/25 12:00 02/16/25 08:00 FiO2 30 02/17/25 02:34 Narrative Exam General: AOx3, no acute distress, able to speak full sentences HEENT: NC/AT, mucous membranes moist, bilateral sclera anicteric Cardiovascular: regular rate and rhythm, S1/S2 present, no murmurs appreciated Pulmonary: breathing comfortably on room air, clear to auscultation bilaterally, no rales/rhonchi/wheezes Abdominal: soft, non-tender, non-distended, no rebound/guarding, normal bowel sounds present Musculoskeletal: normal ROM, no peripheral edema Skin: warm and dry, intact, no rashes Neuro: CN II-XII intact, no focal deficits Discharge Plan Plan [facility] [facility] [place] Patient condition on transfer: Stable Care Plan Goals: ? Take amoxicillin-clavulanate for two more days to finish antibiotic course ? Cyclobenzaprine, oxycodone, and rybelsus were held until follow-up with PCP ? Your insulin degludec/Tresiba was decreased from 30 units to 20 units daily ? Continue taking all other home medications as prescribed ? Follow-up with PCP within 1-2 weeks of discharge ? If you do not have a PCP, you can follow-up at the [facility] (you can call [phone] to make an appointment) ? If you wish to follow-up with Dr. Garcia, schedule appointment on Thursday afternoons ? Return to ED if symptoms worsen or recur Prescriptions/Referrals Prescriptions/Med Rec: New amoxicillin-pot clavulanate 875-125 mg tablet 1 tab PO BID 2 Days Qty: 4 0RF insulin degludec [Tresiba FlexTouch U-100] 100 unit/mL (3 mL) insulin pen 20 unit subcut QDAY Qty: 15 0RF Rx Instructions: Hold if blood glucose less than 120 Continued promethazine-DM 6.25-15 mg/5 mL Syrup 6.25 ml PO Q6HR PRN (Reason: Cough) ondansetron HCl 4 mg tablet 4 mg PO Q8HR levothyroxine 75 mcg tablet 75 mcg PO QDAY lactulose [Enulose] 10 gram/15 mL solution 10 g PO Q8HR PRN (Reason: Gastrointestinal Spasms Or Cramping) Linzess 145 mcg capsule 145 mcg PO QDAY duloxetine 40 mg Capsule,Delayed Release(Dr/Ec) 40 mg PO BID pregabalin [Lyrica] 100 mg capsule 100 mg PO Q8H lidocaine 5 % adhesive patch,medicated 1 patch TOPICAL Q24H Rx Instructions: Apply to left shoulder topically in the morning for chronic pain. sennosides-docusate sodium [2-in-1 Laxative] 8.6-50 mg tablet 2 tab-cap PO BID PRN (Reason: constipation) Lactobacillus acidoph-L. bifid 1 billion cell wafer 1 tab PO QAM Rx Instructions: administer (preferably) with milk nortriptyline 10 mg capsule 10 mg PO .qhs ibuprofen 600 mg tablet 600 mg PO Q8H PRN (Reason: pain) magnesium hydroxide [Milk of Magnesia] 400 mg/5 mL suspension 30 ml PO Q72H bisacodyl [Dulcolax (bisacodyl)] 10 mg suppository 10 mg ID QDAY PRN (Reason: constipation) simethicone [Gas Relief 80 (simethicone)] 80 mg tablet,chewable 80 mg PO TID Rx Instructions: after meals Held cyclobenzaprine 10 mg tablet 10 mg PO BID PRN (Reason: Muscle Pain) Hold Instructions: Hold until you follow-up with your PCP oxycodone 10 mg tablet 10 mg PO Q8HR PRN (Reason: Pain) Hold Instructions: Hold until you follow-up with your PCP Rybelsus 7 mg tablet 7 mg PO QAM Hold Instructions: Hold until you follow-up with your PCP Discontinued docusate sodium 250 mg Capsule 250 mg PO BID insulin degludec [Tresiba FlexTouch U-100] 100 unit/mL (3 mL) insulin pen 100 unit SUBCUT AC pregabalin 100 mg capsule 100 mg PO Q8H sulfamethoxazole-trimethoprim [Bactrim DS] 800-160 mg tablet 1 tab PO BID insulin degludec [Tresiba FlexTouch U-100] 100 unit/mL (3 mL) insulin pen 30 unit subcut QDAY ondansetron HCl 4 mg tablet 4 mg PO Q8H Referrals: No Primary/Family,Physician [Primary Care Provider] - Patient/Caregiver Discharge Instructions Education Materials: Preventing Common Respiratory ..., The Flu (Influenza) Print Language: Mauritian Stand Alone Forms: [facility] Award Info., Patient Portal Info Letter Discharge Order Discharge Orders: Discharge (Routine); Ordered 02/17/25 Ordered By: Travis Garcia Quality Discharge Quality Measures VTE prophylaxis Attestestation MD Attestation I attest that I was physically present for the evaluation, physical examination, lab and imaging review of the patient with the residents. I discussed the case with the residents and agree with the findings and plans of care as documented above. Mery Martinez MD
--- NOTE | 2025-02-17 15:29 | PC.NURSE ---
report given to casey at [facility]. pt alert and oriented gcs 15. no signs of distress noted
== END 2025-02-17 15:34 | disposition skilled nursing facility (03) | DRG 193 ==
LOC: SERX 20:07 → SERHOLD 20:44 → S3SX 21:18
PROVIDERS: Family Medicine; Student in an Organized Health Care Education/Training Program; Admitting Provider Student in an Organized Health Care Education/Training Program; Emergency Provider Emergency Medicine; Visit Provider Student in an Organized Health Care Education/Training Program
DX: J11.00 Influenza due to unidentified influenza virus with unspecified type of pneumonia (principal); G93.41 Metabolic encephalopathy; J96.01 Acute respiratory failure with hypoxia; J96.02 Acute respiratory failure with hypercapnia; N39.0 Urinary tract infection, site not specified; E11.9 Type 2 diabetes mellitus without complications; E03.9 Hypothyroidism, unspecified; M48.00 Spinal stenosis, site unspecified; G89.29 Other chronic pain; K80.20 Calculus of gallbladder without cholecystitis without obstruction; G47.30 Sleep apnea, unspecified; K43.9 Ventral hernia without obstruction or gangrene; K59.00 Constipation, unspecified; Z22.322 Carrier or suspected carrier of Methicillin resistant Staphylococcus aureus; Z66 Do not resuscitate; Z78.9 Other specified health status; Z79.4 Long term (current) use of insulin; Z79.890 Hormone replacement therapy; Z79.899 Other long term (current) drug therapy; Z87.891 Personal history of nicotine dependence; Z88.8 Allergy status to other drugs, medicaments and biological substances
CPT/HCPCS: 36415; 36600; 70450; 71045; 74018; 74176; 76705; 80053; 81001; 82803; 83036; 83605; 83615; 83690; 83735; 83880; 84100; 84145; 84439; 84443; 84484; 85025; 85610; 85730; 87040; 87081; 87086; 87400; 87811; 92610; 93005; 93225; 94640; 94660; 96372; 96374; 96375; 97162; 99291; A9270; J0456; J0696; J1100; J1650; J1815; J1885; J2060; J2185; J2405; J2470; J3490; J7030; J7050

== ENCOUNTER 2025-04-03 00:50 | Inpatient (IN) | payer MEDICARE, MEDICAID, SELFPAY ==
[2025-04-03] VITALS (67 sets, daily range): BP systolic 88–227; BP diastolic 49–146; PULSE 91–149; RESP 15–33; TEMP 36–38; O2SAT 70–100; BMI 36.6; BMI 38.1
--- NOTE | 2025-04-03 00:52 | PD.EDALLER ---
ED Allergic Reaction RME/HPI General Chief complaint: General Adult/Misc Complain Stated complaint: SWOLLEN TONGUE Arrival date/time: 04/03/25 00:50 RME / HPI RME / HPI narrative: This section includes all my notes and documentations, including HPI, PE, and ED course. Steve Tavarez MD HPI: 74yo female BIBA from [facility] here with tongue swelling. Per EMS, patient was biting her fingernails when she developed tongue swelling x PAPER STRIPPER. Patient is unable to provide any history, not verbal probably due to enlarged tongue. ROS: Unobtainable from the patient due to current clinical condition. Physical Exam: General: Alert. No respiratory distress. Eyes: Conjunctivae and lids clear. ENT: No nasal congestion. Severely enlarged tongue noted, filling the entire oral cavity. Neck: Supple. Heart: RRR. Lungs: No respiratory distress. Good air movement. No significant rhonchi, wheezing, rales. Abdomen: Soft and nontender. Back: No CVA tenderness. Skin: Warm and dry. No rash. Neuro: Alert. I reviewed EMS and [facility] notes. I reviewed all diagnostic test results. My interpretation of the EKG is difficult reading, patient unable to stay still. My interpretation of the chest x-ray is infiltrates, official radiology report is pending. Blood tests remarkable for WBC 21.3, Glu 2079, lactic acid 3.2, troponin 0.055, CRP 1.8. COVID/influenza negative. Urine specimen pending. At this point, diagnoses include Angioedema. During the ED course, patient developed respiratory failure. Treatment here included IV fluid, Benadryl, Solu-Medrol, epinephrine SC and drip, vancomycin, cefepime, transexamic acid, metoprolol. With no significant improvement, patient was intubated (see procedure note). Etomidate 30 mg, succinylcholine 150 mg, and Versed drip given. I discussed the case with our ICU. About the presentation and exam and diagnostics and treatments here. And need of further care in the hospital. Will accept the patient. Steve Tavarez MD Related Data Home Medications ?Medication ?Instructions ?Recorded ?Confirmed cyclobenzaprine 10 mg tablet 10 mg PO BID PRN Muscle Pain 05/23/24 02/12/25 Held on 02/13/25. Instructions: Hold until you follow-up with your PCP duloxetine 40 mg capsule,delayed 40 mg PO BID 05/23/24 02/12/25 release lactulose 10 gram/15 mL oral 10 g PO Q8HR PRN Gastrointestinal 05/23/24 02/12/25 solution (Enulose) Spasms Or Cramping levothyroxine 75 mcg tablet 75 mcg PO QDAY 05/23/24 02/12/25 linaclotide 145 mcg capsule 145 mcg PO QDAY 05/23/24 02/12/25 (Linzess) ondansetron HCl 4 mg tablet 4 mg PO Q8HR 05/23/24 02/12/25 oxycodone 10 mg tablet 10 mg PO Q8HR PRN Pain 05/23/24 02/12/25 Held on 02/17/25. Instructions: Hold until you follow-up with your PCP promethazine-DM 6.25 mg-15 mg/5 mL 6.25 ml PO Q6HR PRN Cough 05/23/24 02/12/25 oral syrup semaglutide 7 mg tablet (Rybelsus) 7 mg PO QAM 05/23/24 02/12/25 Held on 02/17/25. Instructions: Hold until you follow-up with your PCP Lactobacillus 1 tab PO QAM 02/12/25 02/12/25 acidophilus-Lactbacill.bifidus 1 billion cell oral wafer bisacodyl 10 mg rectal suppository 10 mg NH QDAY PRN constipation 02/12/25 02/12/25 (Dulcolax (bisacodyl)) ibuprofen 600 mg tablet 600 mg PO Q8H PRN pain 02/12/25 02/12/25 lidocaine 5 % topical patch 1 patch topical Q24H 02/12/25 02/12/25 magnesium hydroxide 400 mg/5 mL 30 ml PO Q72H Constipation 02/12/25 02/12/25 oral suspension (Milk of Magnesia) nortriptyline 10 mg capsule 10 mg PO .qhs 02/12/25 02/12/25 pregabalin 100 mg capsule (Lyrica) 100 mg PO Q8H 02/12/25 02/12/25 sennosides 8.6 mg-docusate sodium 2 tab-cap PO BID PRN constipation 02/12/25 02/12/25 50 mg tablet (2-in-1 Laxative) simethicone 80 mg chewable tablet 80 mg PO TID 02/12/25 02/12/25 (Gas Relief 80 (simethicone)) Previous Rx's ?Medication ?Instructions ?Recorded insulin degludec 100 unit/mL (3 20 unit (0.2 mL) subcut QDAY #15 mL 02/17/25 mL) subcutaneous pen (Tresiba FlexTouch U-100 insulin) Allergies Allergy/AdvReac Type Severity Reaction Status Date / Time niacin Allergy Severe Flushing Verified 05/23/24 14:01 Review of Systems Review of Systems ROS Unobtainable: unobtainable due to medical condition Past Medical History Past Medical History NEUROLOGIC: Positive Neurological Disorders and Peripheral Neuropathy; Negative Seizures CARDIAC: Positive Hypercholesterolemia; Negative Cardiac Disorders or Congestive Heart Failure RESPIRATORY: Positive Sleep Apnea; Negative Chronic Obstructive Pulmonary Disease (COPD) or Asthma GASTROINTESTINAL: Negative Gastrointestinal Disorders GENITOURINARY: Positive Genitourinary Disorders and Renal Disease REPRODUCTIVE: Positive Previous Pregnancies MUSCULOSKELETAL: Positive Musculoskeletal Disorders and Carpal Tunnel Syndrome ENDOCRINE: Positive Endocrine Disorders, Diabetes Mellitus Type 2 and Hypothyroidism; Negative Diabetes Mellitus Type 1 HEMATOLOGIC: Negative Sickle Cell Disease OTHER HISTORY: Positive Falls, Blood Transfusions, Chicken Pox and Measles; Negative Hospitalization, Developmental Delay, Blood Transfusion Reaction, Anesthesia Reactions or Cancer Surgical History SURGICAL: Positive Tonsillectomy, Joint Replacement and Hysterectomy Social History SMOKING STATUS: Former smoker SUBSTANCE USE: does not use ED Exam Narrative Physical exam: As noted in HPI. Course Quality Measures none Orders Category Date Time Status Bedside COVID-19 Antigen Test NOW Care 04/03/25 00:54 Active Bedside Influenza A&B Antigen Test NOW Care 04/03/25 00:54 Completed COVID-19 Screening Questionnaire NOW Care 04/03/25 02:[address] Screening NOW Care 04/03/25 01:00 Active Decision to Admit X1 Care 04/03/25 02:33 Completed EKG (ED ONLY) *Do not use* NOW Care 04/03/25 00:58 Completed EKG (ED ONLY) *Do not use* NOW Care 04/03/25 01:37 Completed Saline [Insert IV] NOW Care 04/03/25 00:54 Active Straight [In and Out Catheter] X1 Care 04/03/25 00:[address] soft tissue neck chest w Stat Exams 04/03/25 01:00 Ordered EKG (ED Only) Stat Exams 04/03/25 00:58 Draft EKG (ED Only) Stat Exams 04/03/25 01:37 Ordered XR chest 1V portable Stat Exams 04/03/25 00:58 Taken ABG [Arterial Blood Gas] Stat Lab 04/03/25 00:58 Ordered BNP [B-Type Natriuretic Peptide] Stat Lab 04/03/25 01:16 Completed Bilirubin,Direct Stat Lab 04/03/25 02:02 Completed Blood Culture (Lab) Stat Lab 04/03/25 02:07 Received C-Reactive Protein Stat Lab 04/03/25 02:02 Completed CBC Stat Lab 04/03/25 01:16 Completed CMP [Comprehensive Metabolic Panel] Stat Lab 04/03/25 02:02 Completed ESR [Sed Rate (ESR)] Stat Lab 04/03/25 02:02 Completed FFP [Fresh Frozen Plasma] Stat Lab 04/03/25 02:02 Results Lactate (Lactic Acid) Stat Lab 04/03/25 02:02 Results Magnesium Stat Lab 04/03/25 02:02 Completed PT [Prothrombin Time with INR] Stat Lab 04/03/25 01:16 Completed PTT [Partial Thromboplastin Time] Stat Lab 04/03/25 01:16 Completed Path Review Blood Smear Stat Lab 04/03/25 01:16 Completed Procalcitonin Stat Lab 04/03/25 02:02 Completed Troponin I Stat Lab 04/03/25 02:02 Completed Type and Screen Stat Lab 04/03/25 02:02 Results UA, C/S IF [Urinalysis, C/S if Indicated] Stat Lab 04/03/25 00:59 Ordered Cefepime Inj [Maxipime Inj] 2 gm Med 04/03/25 01:56 Discontinued SODIUM CHLORIDE 0.9% (Popper) [Ns 0.9% (P)] 50 ml IV X1 Diazepam Inj [Valium Inj] Med 04/03/25 02:08 Discontinued 2.5 mg IVP X1 ONE DiphenhydrAMINE INJ [Benadryl Inj] Med 04/03/25 02:31 Discontinued 50 mg IVP X1 ONE DiphenhydrAMINE INJ [Benadryl Inj] Med 04/03/25 00:54 Discontinued 50 mg IVP X1 STA EPINEPHrine Inj [Adrenalin Inj] Med 04/03/25 00:54 Discontinued 0.3 mg SC X1 ONE EPINEPHrine Inj [Adrenalin Inj] Med 04/03/25 01:11 Discontinued 0.3 mg SC X1 ONE EPINEPHrine Inj [Adrenalin Inj] Med 04/03/25 01:11 Discontinued 0.3 mg SC X1 ONE EPINEPHrine Inj [Adrenalin Inj] Med 04/03/25 01:04 Discontinued 1 mg .ROUTE .STK-MED ONE EPINEPHrine Inj [Adrenalin Inj] Med 04/03/25 01:07 Discontinued 1 mg .ROUTE .STK-MED ONE EPINEPHrine Rt Talisha [Racemic Epi Rt Talisha] Med 04/03/25 03:01 Discontinued 0.5 ml INH X1 ONE EPINEPHrine Rt Talisha [Racemic Epi Rt Talisha] Med 04/03/25 01:21 Discontinued 1 ml INH X1 ONE EPINEPHrine Rt Talisha [Racemic Epi Rt Talisha] Med 04/03/25 02:00 Discontinued 1 ml INH X1 ONE EPINEPHrine Rt Talisha [Racemic Epi Rt Talisha] Med 04/03/25 01:11 Discontinued 1.5 ml .ROUTE .STK-MED ONE EPINEPHrine in NS 16 MG IVPB [Adrenalin/NS 16 MG IVPB] Med 04/03/25 01:54 Active 16 mg in 250 ml IV 0.1 mcg/kg/min MethylPREDNISolone.* [SoluMEDROL Inj] Med 04/03/25 01:04 Discontinued 250 mg .ROUTE .STK-MED ONE MethylPREDNISolone.* [SoluMEDROL Inj] Med 04/03/25 00:54 Discontinued 250 mg IVP X1 ONE Metoprolol Tartrate Inj [Lopressor Inj] Med 04/03/25 01:27 Discontinued 2.5 mg IVP X1 ONE Metoprolol Tartrate Inj [Lopressor Inj] Med 04/03/25 01:34 Discontinued 5 mg IVP X1 ONE Morphine IV Drip 100mg/100ml [Morphine Sulfate IV Drip Med 04/03/25 02:38 Hold 100mg/100ml] 100 ml IV Q50H Ondansetron Inj [Zofran Inj] Med 04/03/25 00:54 Discontinued 4 mg IVP X1 ONE Sodium Chloride 0.9% 1000 ml [Ns] 1,000 ml Med 04/03/25 00:54 Discontinued IV 999 mls/hr Sodium Chloride Rt Talisha 0.9% [NS Rt Talisha 0.9%] Med 04/03/25 03:01 Active 3 ml INH PRN PRN Sodium Chloride Rt Talisha 0.9% [NS Rt Talisha 0.9%] Med 04/03/25 01:21 Discontinued 9 ml INH PRN PRN Sodium Chloride Rt Talisha 0.9% [NS Rt Talisha 0.9%] Med 04/03/25 02:00 Active 9 ml INH PRN PRN Tranexamic Acid 1,000 mg Ivpb [Tranexamic Acid Ivpb] Med 04/03/25 01:08 Discontinued 1,000 mg in 100 ml IV .STK-MED Tranexamic Acid 1,000 mg Ivpb [Tranexamic Acid Ivpb] Med 04/03/25 01:40 Discontinued 1,000 mg in 100 ml IV .STK-MED Tranexamic Acid 1,000 mg Ivpb [Tranexamic Acid Ivpb] Med 04/03/25 17:30 Active 1,000 mg in 100 ml IV WSUPPER Vancomycin Inj 2,000 mg Med 04/03/25 01:56 Active Sodium Chloride 0.9% 500 ml [Ns] 500 ml IV X1 hydrALAZINE INJ [Apresoline Inj] Med 04/03/25 01:35 Discontinued 10 mg IVP X1 ONE Vital Signs Vital signs: Vital Signs Pulse Rate 110 H 04/03/25 01:05 Blood Pressure 172/94 H 04/03/25 01:05 PROCEDURES: Intubation Time out performed: Yes sedative: Etomidate Mg Given: 30 paralytic: Succinylcholine Mg Given: 150 Laryngoscope: fiber optic video scope Assist Device Used: fiber optic device ET Tube Size: 7 ET Tube Uncuffed: No Tube Secured Depth (cm): 25 Tube Secured Location: teeth Tube Placement Confirmation: visualized tube passing through cords, equal breath sounds bilaterally, no breath sounds over epigastrium and confirmation by capnometry Intubation Complications: difficult intubation Allergic Reaction MDM Narrative MDM Narrative:: 74yo female BIBA from [facility] here with tongue swelling. Per EMS, patient was biting her fingernails when she developed tongue swelling x PAPER STRIPPER. Patient is unable to provide any history, not verbal probably due to enlarged tongue. Patient data External records reviewed:: [facility] previous records (Per chart review, patient was admitted here on 02/12/25 for acute respiratory failure with hypoxia.), EMS form and Alf records (Per POLST, patient is a DNR on comfort measures.) Clinical information provided by:: EMS Social determinants that could affect healthcare access:: housing (SNF resident) Patient has the following chronic illnesses:: DM, hypothyroidism How is presenting disease/condition affected by chronic disease/condition?: uneffected by Evaluation data The following diagnostics were reviewed and interpreted by me:: lab results, radiology exam(s) and EKG tracing(s) (My interpretation of the EKG is: Difficult rhythm (146 bpm) and difficult reading due to patient napping still. Steve Tavarez MD) Lab and/or radiology exams considered but not ordered:: none Interpretation Summary: I reviewed all diagnostic test results. My interpretation of the EKG is difficult reading, patient unable to stay still. My interpretation of the chest x-ray is infiltrates, official radiology report is pending. Blood tests remarkable for WBC 21.3, Glu 2079, lactic acid 3.2, troponin 0.055, CRP 1.8. COVID/influenza negative. Medications / Prescriptions Medications or Prescriptions considered but not ordered:: none Medication administrations:: Medication Administration History Acetaminophen (Acetaminophen 325 Mg Tablet) 650 mg PO Q4HR PRN PRN Reason: PAIN SCALE 1-3 (mild Stop: 05/03/25 03:10 Acetaminophen (Acetaminophen Supp 650 Mg Supp) 650 mg NH Q4HR PRN PRN Reason: PAIN SCALE 1-3 (mild Stop: 05/03/25 03:10 Dextrose (Dextrose 50%-Water Inj 50 Ml Syringe) 25 ml IV Q15MIN PRN PRN Reason: BG 50-70 responsive npo pt Stop: 05/03/25 04:17 Dextrose (Dextrose 50%-Water Inj 50 Ml Syringe) 50 ml IV Q15MIN PRN PRN Reason: BG <50 OR BG <70 & pt unresponsive Stop: 05/03/25 04:17 Glucagon (Glucagon Inj 1 Mg Vial) 1 mg IM Q15MIN PRN PRN Reason: BG <70, and no IV access Heparin Sodium (Porcine) (Heparin Sod Inj 5000 Unit/Ml Vial) 5,000 unit SC Q8HR STEPHANI Stop: 04/17/25 05:59 Tranexamic Acid (Tranexamic Acid Ivpb) 1,000 mg in 100 mls @ 200 mls/hr IV WSUPPER STEPHANI Stop: 04/04/25 17:59 Last Admin: 04/03/25 01:52 Dose: 200 mls/hr Documented By: Infusion: 04/03/25 01:52 Dose: Infused Documented By: Admin: 04/03/25 01:22 Dose: 200 mls/hr Documented By: DT Epinephrine/Sodium Chloride (Adrenalin/Ns 16 Mg Ivpb) 16 mg in 250 mls @ 8.505 mls/hr IV .Q24H STEPHANI; Protocol Stop: 05/03/25 01:53 Last Infusion: 04/03/25 02:35 Dose: 0 mcg/kg/min, 0 mls/hr Documented By: Admin: 04/03/25 02:13 Dose: 0.1 mcg/kg/min, 8.505 mls/hr Documented By: DT Vancomycin HCl 2,000 mg/ (Sodium Chloride) 500 mls @ 150 mls/hr IV X1 ONE Stop: 04/03/25 05:15 Last Admin: 04/03/25 03:55 Dose: 150 mls/hr Documented By: DT Morphine Sulfate (Morphine Sulfate Iv Drip 100mg/100ml) 100 mls @ 2 mls/hr IV Q50H PRN; Protocol PRN Reason: PAIN (COMFORT CARE) Stop: 04/08/25 02:37 Ceftriaxone Sodium/Dextrose (Rocephin/D5w 1gm Iv Premix) 1 gm in 50 mls @ 100 mls/hr IV QDAY TSEPHANI Stop: 04/10/25 03:20 Midazolam HCl (Versed Pf Inj In Ns Premix) 100 mg in 100 mls @ 1 mls/hr IV .Q24H PRN; Protocol PRN Reason: Per Protocol Stop: 04/08/25 04:00 Last Titration: 04/03/25 04:30 Dose: 5 mg/hr, 5 mls/hr Documented By: Admin: 04/03/25 04:18 Dose: 1 mg/hr, 1 mls/hr Documented By: MALACHI Co-signed By: RH Insulin Human Lispro (Insulin Lispro (Admelog) 1 Unit/0.01 Ml Unit) 0 unit SC Q6H STEPHANI; Protocol Stop: 05/03/25 04:29 Labetalol HCl (Labetalol Inj 5 Mg/Ml Vial 20 Ml) 5 mg IVP Q4H PRN PRN Reason: SBP greater than 180, or DBP greater than 110 Stop: 05/03/25 04:03 Magnesium Hydroxide (Milk Of Magnesia Susp 30 Ml Udc) 30 ml PO QDAY PRN PRN Reason: CONSTIPATION Stop: 05/03/25 03:10 Nitroglycerin (Nitroglycerin 0.4 Mg Subl Btl #25) 0.4 mg SL Q5MIN PRN PRN Reason: CHEST PAIN Non-Formulary Medication (Berinert) 1,800 unit IV X1 ONE Stop: 04/03/25 04:37 Sodium Chloride (Sodium Chloride Rt Talisha 0.9% 3 Ml Nebu) 9 ml INH PRN PRN PRN Reason: SOLN Stop: 05/03/25 01:59 Sodium Chloride (Sodium Chloride Rt Talisha 0.9% 3 Ml Nebu) 3 ml INH PRN PRN PRN Reason: SOLN Stop: 05/03/25 03:00 Sodium Chloride (Sodium Chloride Rt Talisha 0.9% 3 Ml Nebu) 3 ml INH PRN PRN PRN Reason: SOLN Stop: 05/03/25 04:22 Discontinued Medications Diazepam (Diazepam Inj 5 Mg/Ml Vial 2 Ml) 2.5 mg IVP X1 ONE Stop: 04/03/25 02:09 Last Admin: 04/03/25 02:18 Dose: 2.5 mg Documented By: DT Diphenhydramine HCl (Diphenhydramine Inj 50 Mg/Ml Vial) 50 mg IVP X1 STA Stop: 04/03/25 00:55 Last Admin: 04/03/25 01:06 Dose: 50 mg Documented By: DT Diphenhydramine HCl (Diphenhydramine Inj 50 Mg/Ml Vial) 50 mg IVP X1 ONE Stop: 04/03/25 02:32 Last Admin: 04/03/25 02:39 Dose: 50 mg Documented By: DT Diphenhydramine HCl (Diphenhydramine Inj 50 Mg/Ml Vial) 50 mg IVP X1 STA Stop: 04/03/25 04:24 Epinephrine (Epinephrine Rt Talisha 0.5 Ml Nebu) 1 ml INH X1 ONE Stop: 04/03/25 01:22 Epinephrine (Epinephrine Rt Talisha 0.5 Ml Nebu) Confirm Administered Dose 1.5 ml .ROUTE .STK-MED ONE Stop: 04/03/25 01:12 Last Admin: 04/03/25 01:29 Dose: Not Given Documented By: DT Non-Admin Reason: Duplicate Medication on eMAR Epinephrine (Epinephrine Rt Talisha 0.5 Ml Nebu) 1 ml INH X1 ONE Stop: 04/03/25 02:01 Epinephrine (Epinephrine Rt Talisha 0.5 Ml Nebu) 0.5 ml INH X1 ONE Stop: 04/03/25 03:02 Epinephrine HCl (Epinephrine Inj 1 Mg/Ml Amp) 0.3 mg SC X1 ONE Stop: 04/03/25 00:55 Last Admin: 04/03/25 01:05 Dose: 0.3 mg Documented By: DT Comments: 0.3 Epinephrine HCl (Epinephrine Inj 1 Mg/Ml Amp) 0.3 mg SC X1 ONE Stop: 04/03/25 01:12 Last Admin: 04/03/25 01:31 Dose: Not Given Documented By: DT Non-Admin Reason: Wrong Time Admin: 04/03/25 01:13 Dose: 0.3 mg Documented By: MALACHI Epinephrine HCl (Epinephrine Inj 1 Mg/Ml Amp) 0.3 mg SC X1 ONE Stop: 04/03/25 01:12 Last Admin: 04/03/25 01:26 Dose: 0.3 mg Documented By: DT Epinephrine HCl (Epinephrine Inj 1 Mg/Ml Amp) Confirm Administered Dose 1 mg .ROUTE .STK-MED ONE Stop: 04/03/25 01:05 Last Admin: 04/03/25 01:20 Dose: Not Given Documented By: DT Non-Admin Reason: Duplicate Medication on eMAR Epinephrine HCl (Epinephrine Inj 1 Mg/Ml Amp) Confirm Administered Dose 1 mg .ROUTE .STK-MED ONE Stop: 04/03/25 01:08 Last Admin: 04/03/25 01:20 Dose: Not Given Documented By: DT Non-Admin Reason: Duplicate Medication on eMAR Etomidate (Etomidate Inj 2 Mg/Ml Vial 10 Ml) 30 mg IVP X1 ONE Stop: 04/03/25 04:02 Last Admin: 04/03/25 04:16 Dose: 30 mg Documented By: DT Hydralazine HCl (Hydralazine Inj 20 Mg/Ml Vial) 10 mg IVP X1 ONE Stop: 04/03/25 01:36 Last Admin: 04/03/25 02:42 Dose: Not Given Documented By: DT Non-Admin Reason: Cancelled by Provider Sodium Chloride (Ns) 1,000 mls @ 999 mls/hr IV .Q1H1M ONE Stop: 04/03/25 01:54 Last Infusion: 04/03/25 02:22 Dose: Infused Documented By: Admin: 04/03/25 01:21 Dose: 999 mls/hr Documented By: DT Tranexamic Acid (Tranexamic Acid Ivpb) Confirm Administered Dose 1,000 mg in 100 mls @ ud IV .STK-MED ONE Stop: 04/03/25 01:09 Last Admin: 04/03/25 01:27 Dose: Not Given Documented By: DT Non-Admin Reason: Duplicate Medication on eMAR Tranexamic Acid (Tranexamic Acid Ivpb) Confirm Administered Dose 1,000 mg in 100 mls @ ud IV .STK-MED ONE Stop: 04/03/25 01:41 Last Admin: 04/03/25 01:52 Dose: Not Given Documented By: DT Non-Admin Reason: Duplicate Medication on eMAR Cefepime HCl 2 gm/ Sodium (Chloride) 50 mls @ 100 mls/hr IV X1 ONE Stop: 04/03/25 02:25 Last Infusion: 04/03/25 03:39 Dose: Infused Documented By: Admin: 04/03/25 03:09 Dose: 100 mls/hr Documented By: DT Levalbuterol HCl (Levalbuterol Rt 1.25 Mg/0.5 Ml Nebu) 7.5 mg INH X1 ONE Stop: 04/03/25 04:24 Methylprednisolone Sodium Succinate (Methylprednisolone Sod Succ 62.5 Mg/Ml 2ml Vial) 250 mg IVP X1 ONE Stop: 04/03/25 00:55 Last Admin: 04/03/25 01:13 Dose: 250 mg Documented By: DT Methylprednisolone Sodium Succinate (Methylprednisolone Sod Succ 62.5 Mg/Ml 2ml Vial) Confirm Administered Dose 250 mg .ROUTE .STK-MED ONE Stop: 04/03/25 01:05 Last Admin: 04/03/25 01:20 Dose: Not Given Documented By: DT Non-Admin Reason: Duplicate Medication on eMAR Methylprednisolone Sodium Succinate (Methylprednisolone Sod Succ 62.5 Mg/Ml 2ml Vial) 125 mg IVP X1 ONE Stop: 04/03/25 04:24 Metoprolol Tartrate (Metoprolol Tartrate Inj 1 Mg/Ml Amp 5 Ml) 2.5 mg IVP X1 ONE Stop: 04/03/25 01:28 Last Admin: 04/03/25 01:53 Dose: Not Given Documented By: DT Non-Admin Reason: order changed Metoprolol Tartrate (Metoprolol Tartrate Inj 1 Mg/Ml Amp 5 Ml) 5 mg IVP X1 ONE Stop: 04/03/25 01:35 Last Admin: 04/03/25 01:39 Dose: 5 mg Documented By: DT Ondansetron HCl (Ondansetron Inj 2 Mg/Ml Inj 2 Ml) 4 mg IVP X1 ONE; Protocol Stop: 04/03/25 00:55 Last Admin: 04/03/25 01:05 Dose: 4 mg Documented By: DT Sodium Chloride (Sodium Chloride Rt Talisha 0.9% 3 Ml Nebu) 9 ml INH PRN PRN PRN Reason: SOLN Stop: 05/03/25 01:20 Succinylcholine Chloride (Succinylcholine Inj 20 Mg/Ml Vial 10 Ml) 150 mg IV X1 ONE Stop: 04/03/25 04:02 Last Admin: 04/03/25 04:15 Dose: 150 mg Documented By: DT Treatment here included IV fluid, Benadryl, Solu-Medrol, epinephrine SC and drip, vancomycin, cefepime, transexamic acid, metoprolol. With no significant improvement, patient was intubated (see procedure note). Etomidate 30 mg, succinylcholine 150 mg, and Versed drip given. Consultations Consultation(s) initiated? (list below): Yes Consultation #1 (Physician, Specialty, Details): I discussed the case with our ICU. About the presentation and exam and diagnostics and treatments here. And need of further care in the hospital. Will accept the patient. Diagnosis Differential Diagnosis allergic reaction: anaphylaxis, allergic reaction, angioedema, contact dermatitis, adverse reaction to drug, viral enanthem and urticaria Most likely diagnosis given after review of the tests above:: Angioedema, Respiratory failure Admission Indicated Admission indicated?: indicated Explain why admission is indicated or not indicated:: Angioedema, Respiratory failure Admission Request Was there a request for admission?: Yes Admission Attestation Admission request attestation: Discussed case with with our ICU service regarding admission. Discussed patients ED course, exam findings, labs, and radiology results. Agreed to accept the patient for admission. Disposition Plan Disposition Plan: Admit Critical Care Time Critical Care Time Critical Care Time: Yes Total Critical Care Time (min.): 68 Attestation: Due to a high probability of clinically significant, life threatening deterioration, the patient required my highest level of preparedness to intervene emergently and I personally spent this critical care time directly and personally managing the patient. This critical care time included obtaining a history; examining the patient; ordering and review of studies; arranging urgent treatment with development of a management plan; evaluation of patient's response to treatment; frequent reassessment; and discussions with family and other providers. It was exclusive of separately billable procedures and treating other patients and teaching time. Steve Tavarez MD Discharge Plan Plan Patient Disposition: Admit Acute Care w/in Hospital Problem List Clinical Impression: Angioedema, Respiratory failure
--- NOTE | 2025-04-03 00:58 | XR_ITS ---
Examination: AP chest single view Technique one AP portable semiupright chest single view Date and time: April 03, 2025 0148 hours INDICATIONS: Shortness of breath today. FINDINGS: Diffuse bilateral pneumonia. Normal heart size The osseous structures are intact IMPRESSION: Diffuse bilateral pneumonia, severe in the right lung
--- NOTE | 2025-04-03 00:58 | EKG_ITS ---
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
[2025-04-03] MEDS: EPINEPHrine INJ 1 MG/ML AMP 0.3 MG SC ×3 (01:05→01:26)
[2025-04-03] MEDS: ONDANSETRON INJ 2 MG/ML INJ 2 ML 4 MG IVP (01:05)
[2025-04-03] MEDS: MethylPREDNISolone SOD SUCC 62.5 MG/ML 2ML VIAL 250 MG IVP (01:13)
[2025-04-03] MEDS: SODIUM CHLORIDE 0.9% 1000 ML 1,000 ML 999 ML IV (01:21)
[2025-04-03] MEDS: TRANEXAMIC ACID 1,000 MG IVPB 1,000 MG/100 ML BAG 200 MG IV ×2 (01:22→01:52)
[2025-04-03 01:24] LABS: Basophils # (Auto) 0.1 Thou/mm3 (0.0-0.2); Basophils % (Auto) 0 % (0-2.5); Eosinophils # (Auto) 0.6 Thou/mm3 (0.0-0.5); Eosinophils % (Auto) 3 % (0-10); Hematocrit 55.5 % (36.0-46.0); Hemoglobin 17.4 g/dL (12.0-16.0); Immature Granulocytes Auto 0.12 Thou/mm3 (0.00-0.00); Lymphocytes # (Auto) 9.0 Thou/mm3 (1.0-4.8); Lymphocytes % (Auto) 42 % (10-50); Mean Corpuscular HGB Conc 31.4 g/dl (31.0-37.0); Mean Corpuscular Hemoglobin 29.9 pg (25.0-35.0); Mean Corpuscular Volume 95 fL (80-100); Monocytes # (Auto) 1.3 Thou/mm3 (0.0-0.8); Monocytes % (Auto) 6 % (0-12); Neutrophils # (Auto) 10.2 Thou/mm3 (1.8-7.7); Neutrophils % (Auto) 48 % (37-80); Nucleated Red Blood Cell # 0.00 Thou/mm3 (0.00-0.00); Nucleated Red Blood Cell % 0 /100 WBC (0); Platelet Count 335 Thou/mm3 (140-440); RDW Standard Deviation 48.7 fL (36.4-46.3); Red Blood Count 5.82 Miln/mm3 (4.00-5.20); White Blood Count 21.3 Thou/mm3 (3.6-11.0)
[2025-04-03] MEDS: EPINEPHrine RT SOL 0.5 ML NEBU 1 ML INH ×2 (01:25→02:05)
[2025-04-03] MEDS: METOPROLOL TARTRATE INJ 1 MG/ML AMP 5 ML 5 MG IVP (01:39)
[2025-04-03 01:51] LABS: B-Type Natriuretic Peptide < 20 pg/mL (0-100)
[2025-04-03 01:58] LABS: INR 1.0 (0.9-1.3); Partial Thromboplastin Time 26.2 Seconds (22.0-36.0); Prothrombin Time 11.2 Seconds (9.0-12.2)
[2025-04-03] MEDS: EPINEPHrine in NS 16 MG IVPB 16 MG/250 ML BAG 8.505 MG IV (02:13)
[2025-04-03 02:14] LABS: Lactate (Lactic Acid) 3.2 mMol/L (0.4-2.0)
[2025-04-03] MEDS: DIAZEPAM INJ 5 MG/ML VIAL 2 ML 2.5 MG IVP (02:18)
[2025-04-03 02:36] LABS: Sed Rate (ESR) 22 mm/hr (0-30)
--- NOTE | 2025-04-03 03:00 | PC.NURSE ---
PER PROVIDER KEISHA DO NOT START THE MORPHINE DRIP. HER TONGUE IS GETTING BETTER WE ARE NOT STARTING THE MORPHINE DRIP . DR. VALDES AND DEE AT BEDSIDE.
[2025-04-03 03:04] LABS: Alanine Aminotransferase 10 U/L (10-49); Albumin, Serum 3.8 gm/dL (3.4-4.8); Albumin/Globulin Ratio 1.7 (1.2-2.2); Alkaline Phosphatase 94 U/L (46-116); Anion Gap 12 (7-16); Aspartate Amino Transferase 13 U/L (0-34); BUN/Creatinine Ratio 17 Ratio (12-20); Bilirubin,Direct < 0.1 mg/dL (0.0-0.3); Bilirubin,Total 0.3 mg/dL (0.3-1.2); Blood Urea Nitrogen 15 mg/dL (9-23); C-Reactive Protein 1.8 mg/dL (0.0-0.9); Calcium 9.7 mg/dL (8.3-10.6); Calcium (Corrected) 9.9 mg/dL (8.5-10.1); Carbon Dioxide 21.2 mMol/L (20.0-31.0); Chloride 107 mMol/L (98-107); Creatinine (Component) 0.9 mg/dL (0.6-1.3); Estimated Creatinine Clearance 59.2 mL/min (>60); Globulin 2.3 gm/dL (2.3-3.5); Glucose 279 mg/dL (74-106); Magnesium 1.8 mg/dL (1.6-2.6); Osmolality,Calculated 290 (275-295); Potassium 3.7 mMol/L (3.4-5.1); Procalcitonin 0.08 ng/ml (0.0-0.49); Sodium 140 mMol/L (136-145); Total Protein 6.1 gm/dL (5.7-8.2); eGFR > 60 See Note
[2025-04-03] MEDS: EPINEPHrine RT SOL 0.5 ML NEBU INH (03:05)
[2025-04-03 03:09] LABS: Troponin I 0.055 ng/mL (0.0-0.045)
[2025-04-03] MEDS: CEFEPIME INJ 2 GM in SODIUM CHLORIDE 0.9% (Popper) 50 ML IV (03:09)
--- NOTE | 2025-04-03 03:22 | PD.RESHP ---
Documentation for date of: 04/03/25 [facility] History of Present Illness History of present illness: The patient is a 74-year-old female with significant past medical history of diabetes mellitus type 2, hypothyroidism, chronic pain secondary to spinal stenosis, difficulty walking, major depressive disorder, muscle wasting and atrophy, age-related physical disability, chronic respiratory failure with hypercapnia, cervical disc degeneration and abdominal hernia who presented to ED on 04/03/2025 with chief complaint of acute tongue swelling associated with dyspnea. The patient was biting her nails, and started developing tongue swelling. Further history were unable to obtain due to her severe tongue swelling and unable to interact verbally. The patient is a resident of [facility]. In the ED, her tongue swelling continued to increase, and her oxygen saturation was dropping down to 30s, and CODE BLUE was called for possible respiratory arrest. However, she always had a pulse. She was started on bag and mask ventilation, and she is DNR/DNI, so intubation or tracheostomy could not be attempted. Her other initial vitals were blood pressure 172/94, pulse 110, RR 26. Her blood pressure increased to 210s/110s. She was given metoprolol tartrate 5 Mg IV x 1, and her blood pressure decreased to 170s/90s. Labs are significant for white count 21.3, hemoglobin 17.4, coagulation panel WNL, chemistry panel revealed potassium 3.7, sodium 140, bicarb 21.2, anion gap 12, BUN 15, creatinine 0.9, blood sugar 279, lactic acid 3.2, magnesium 1.8, troponin 0.055, CRP 1.8, BNP less than 20, Pro-Celio 0.08, chest x-ray was significant for possible aspiration pneumonia of right lung base, and EKG revealed sinus rhythm with sinus arrhythmia. The patient was given epinephrine 0.3 Mg subcutaneous x 2, multiple racemic epinephrine INH, diphenhydramine 50 Mg IV x 2, Zofran 4 Mg IV x 1, sodium chloride 1 L IV bolus x 1, tranexamic acid 1 g x 1, diazepam 2.5 Mg IV x 1, hydralazine 10 Mg IV x 1, cefepime 2 g IV x 1, and was started on epinephrine drip 0.1 mcg/kg/min. The patient required continuous bag and mask ventilation for oxygen saturation above 90%. However, after about an hour of continuing on bag and mask ventilation, the patient's condition is started worsening, and her oxygen saturation was trending down to 70s and decision was made to place the patient on comfort care. She was started on comfort measures with morphine drip, but respiratory team noticed that the patient's oxygen saturation was slowly improving, and bagging was getting easier. Her comfort measures were reversed, morphine drip was held, and was started on medical management. Her oxygen saturation improved to 94%. As the patient was in discomfort with bag and mask ventilation, we contacted her sister Ms. Cullen and explained the situation, and she wished to proceed with intubation for further comfort and management. The patient was admitted to ICU for further management of acute angioedema and further airway management. PMH: As mentioned above SHX: Unable to obtain Social history: Unable to obtain, resident of [facility] Family history: Unable to obtain Medications: Lidocaine 100 Mg every 8 hourly as needed for neuropathic pain, Lidoderm patch 5%, for left shoulder chronic pain, duloxetine 40 Mg daily for chronic pain, Rybelsus 7 Mg daily, insulin glargine 20 units daily in the morning, levothyroxine 75 mcg daily, oxycodone 10 Mg every 8 hourly as needed for severe pain. Allergies: Niacin, gives flushing Review of Systems Review of Systems ROS Unobtainable: unobtainable due to medical condition Exam Vital Signs Pulse Resp BP Pulse Ox O2 Del Method 138 H 20 145/97 H 91 L Ambu-Bag 04/03/25 03:02 04/03/25 03:02 04/03/25 03:02 04/03/25 03:02 04/03/25 03:02 Narrative Exam General: Elderly, obese female, no acute distress, unable to speak HEENT: Moist mucous membranes, severe edematous tongue covering entire oral cavity Neck: Supple, No masses, No JVD CVS: Sinus tachycardic, No murmurs, rubs or gallops Lungs: Severe rhonchi and stridor present, equal air entry bilaterally Abd: Soft, NT/severe distention with protuberance in lower abdomen, +BS, no organomegaly Ext: No edema, warm and well perfused Skin: No rash Psych: Unobtainable Results: Labs 04/03/25 01:16 04/03/25 14:16 Labs: Short CBC 04/03/25 Range/Units 01:16 WBC 21.3 H (3.6-11.0) Thou/mm3 Hgb 17.4 H (12.0-16.0) g/dL Hct 55.5 H (36.0-46.0) % Plt Count 335 (140-440) Thou/mm3 BMP 04/03/25 02:02 Sodium 140 Potassium 3.7 Chloride 107 Carbon Dioxide 21.2 BUN 15 Creatinine 0.9 Glucose 279 H Calcium 9.7 Cardiac Enzymes 04/03/25 Range/Units 02:02 Troponin I 0.055 H* (0.0-0.045) ng/mL Liver Function 04/03/25 Range/Units 02:02 Total Bilirubin 0.3 (0.3-1.2) mg/dL Direct Bilirubin < 0.1 (0.0-0.3) mg/dL AST 13 (0-34) U/L ALT 10 (10-49) U/L Alkaline Phosphatase 94 (46-116) U/L Albumin 3.8 (3.4-4.8) gm/dL Quality Measures Quality Measures none Advance care planning discussed with:: patient and sibling Medications Home Medications and Allergies Home Medications ?Medication ?Instructions ?Recorded ?Confirmed ?Type cyclobenzaprine 10 mg tablet 10 mg PO BID PRN Muscle Pain 05/23/24 02/12/25 History Held on 02/13/25. Instructions: Hold until you follow-up with your PCP duloxetine 40 mg capsule,delayed 40 mg PO BID 05/23/24 02/12/25 History release lactulose 10 gram/15 mL oral 10 g PO Q8HR PRN Gastrointestinal 05/23/24 02/12/25 History solution (Enulose) Spasms Or Cramping levothyroxine 75 mcg tablet 75 mcg PO QDAY 05/23/24 02/12/25 History linaclotide 145 mcg capsule 145 mcg PO QDAY 05/23/24 02/12/25 History (Linzess) ondansetron HCl 4 mg tablet 4 mg PO Q8HR 05/23/24 02/12/25 History oxycodone 10 mg tablet 10 mg PO Q8HR PRN Pain 05/23/24 02/12/25 History Held on 02/17/25. Instructions: Hold until you follow-up with your PCP promethazine-DM 6.25 mg-15 mg/5 mL 6.25 ml PO Q6HR PRN Cough 05/23/24 02/12/25 History oral syrup semaglutide 7 mg tablet (Rybelsus) 7 mg PO QAM 05/23/24 02/12/25 History Held on 02/17/25. Instructions: Hold until you follow-up with your PCP Lactobacillus 1 tab PO QAM 02/12/25 02/12/25 History acidophilus-Lactbacill.bifidus 1 billion cell oral wafer bisacodyl 10 mg rectal suppository 10 mg MS QDAY PRN constipation 02/12/25 02/12/25 History (Dulcolax (bisacodyl)) ibuprofen 600 mg tablet 600 mg PO Q8H PRN pain 02/12/25 02/12/25 History lidocaine 5 % topical patch 1 patch topical Q24H 02/12/25 02/12/25 History magnesium hydroxide 400 mg/5 mL 30 ml PO Q72H Constipation 02/12/25 02/12/25 History oral suspension (Milk of Magnesia) nortriptyline 10 mg capsule 10 mg PO .qhs 02/12/25 02/12/25 History pregabalin 100 mg capsule (Lyrica) 100 mg PO Q8H 02/12/25 02/12/25 History sennosides 8.6 mg-docusate sodium 2 tab-cap PO BID PRN constipation 02/12/25 02/12/25 History 50 mg tablet (2-in-1 Laxative) simethicone 80 mg chewable tablet 80 mg PO TID 02/12/25 02/12/25 History (Gas Relief 80 (simethicone)) Allergies Allergy/AdvReac Type Severity Reaction Status Date / Time niacin Allergy Severe Flushing Verified 05/23/24 14:01 Visit Medications Acetaminophen (Acetaminophen 325 Mg Tablet) 650 mg PO Q4HR PRN PRN Reason: PAIN SCALE 1-3 (mild Stop: 05/03/25 03:10 Acetaminophen (Acetaminophen Supp 650 Mg Supp) 650 mg MS Q4HR PRN PRN Reason: PAIN SCALE 1-3 (mild Stop: 05/03/25 03:10 Heparin Sodium (Porcine) (Heparin Sod Inj 5000 Unit/Ml Vial) 5,000 unit SC Q8HR STEPHANI Stop: 04/17/25 05:59 Tranexamic Acid (Tranexamic Acid Ivpb) 1,000 mg in 100 mls @ 200 mls/hr IV WSUPPER STEPHANI Stop: 04/04/25 17:59 Last Admin: 04/03/25 01:52 Dose: 200 mls/hr Epinephrine/Sodium Chloride (Adrenalin/Ns 16 Mg Ivpb) 16 mg in 250 mls @ 8.505 mls/hr IV .Q24H STEPHANI; Protocol Stop: 05/03/25 01:53 Last Infusion: 04/03/25 02:35 Dose: 0 mcg/kg/min, 0 mls/hr Vancomycin HCl 2,000 mg/ (Sodium Chloride) 500 mls @ 150 mls/hr IV X1 ONE Stop: 04/03/25 05:15 Morphine Sulfate (Morphine Sulfate Iv Drip 100mg/100ml) 100 mls @ 2 mls/hr IV Q50H PRN; Protocol PRN Reason: PAIN (COMFORT CARE) Stop: 04/08/25 02:37 Ceftriaxone Sodium/Dextrose (Rocephin/D5w 1gm Iv Premix) 1 gm in 50 mls @ 100 mls/hr IV QDAY STEPHANI Stop: 04/10/25 03:20 Magnesium Hydroxide (Milk Of Magnesia Susp 30 Ml Udc) 30 ml PO QDAY PRN PRN Reason: CONSTIPATION Stop: 05/03/25 03:10 Nitroglycerin (Nitroglycerin 0.4 Mg Subl Btl #25) 0.4 mg SL Q5MIN PRN PRN Reason: CHEST PAIN Sodium Chloride (Sodium Chloride Rt Talisha 0.9% 3 Ml Nebu) 9 ml INH PRN PRN PRN Reason: SOLN Stop: 05/03/25 01:59 Sodium Chloride (Sodium Chloride Rt Talisha 0.9% 3 Ml Nebu) 3 ml INH PRN PRN PRN Reason: SOLN Stop: 05/03/25 03:00 Discontinued Medications Diazepam (Diazepam Inj 5 Mg/Ml Vial 2 Ml) 2.5 mg IVP X1 ONE Stop: 04/03/25 02:09 Last Admin: 04/03/25 02:18 Dose: 2.5 mg Diphenhydramine HCl (Diphenhydramine Inj 50 Mg/Ml Vial) 50 mg IVP X1 STA Stop: 04/03/25 00:55 Last Admin: 04/03/25 01:06 Dose: 50 mg Diphenhydramine HCl (Diphenhydramine Inj 50 Mg/Ml Vial) 50 mg IVP X1 ONE Stop: 04/03/25 02:32 Last Admin: 04/03/25 02:39 Dose: 50 mg Epinephrine (Epinephrine Rt Talisha 0.5 Ml Nebu) 1 ml INH X1 ONE Stop: 04/03/25 01:22 Epinephrine (Epinephrine Rt Talisha 0.5 Ml Nebu) 1 ml INH X1 ONE Stop: 04/03/25 02:01 Epinephrine (Epinephrine Rt Talisha 0.5 Ml Nebu) 0.5 ml INH X1 ONE Stop: 04/03/25 03:02 Epinephrine HCl (Epinephrine Inj 1 Mg/Ml Amp) 0.3 mg SC X1 ONE Stop: 04/03/25 00:55 Last Admin: 04/03/25 01:05 Dose: 0.3 mg Epinephrine HCl (Epinephrine Inj 1 Mg/Ml Amp) 0.3 mg SC X1 ONE Stop: 04/03/25 01:12 Last Admin: 04/03/25 01:31 Dose: Not Given Epinephrine HCl (Epinephrine Inj 1 Mg/Ml Amp) 0.3 mg SC X1 ONE Stop: 04/03/25 01:12 Last Admin: 04/03/25 01:26 Dose: 0.3 mg Hydralazine HCl (Hydralazine Inj 20 Mg/Ml Vial) 10 mg IVP X1 ONE Stop: 04/03/25 01:36 Last Admin: 04/03/25 02:42 Dose: Not Given Sodium Chloride (Ns) 1,000 mls @ 999 mls/hr IV .Q1H1M ONE Stop: 04/03/25 01:54 Last Admin: 04/03/25 01:21 Dose: 999 mls/hr Cefepime HCl 2 gm/ Sodium (Chloride) 50 mls @ 100 mls/hr IV X1 ONE Stop: 04/03/25 02:25 Last Admin: 04/03/25 03:09 Dose: 100 mls/hr Methylprednisolone Sodium Succinate (Methylprednisolone Sod Succ 62.5 Mg/Ml 2ml Vial) 250 mg IVP X1 ONE Stop: 04/03/25 00:55 Last Admin: 04/03/25 01:13 Dose: 250 mg Metoprolol Tartrate (Metoprolol Tartrate Inj 1 Mg/Ml Amp 5 Ml) 2.5 mg IVP X1 ONE Stop: 04/03/25 01:28 Last Admin: 04/03/25 01:53 Dose: Not Given Metoprolol Tartrate (Metoprolol Tartrate Inj 1 Mg/Ml Amp 5 Ml) 5 mg IVP X1 ONE Stop: 04/03/25 01:35 Last Admin: 04/03/25 01:39 Dose: 5 mg Ondansetron HCl (Ondansetron Inj 2 Mg/Ml Inj 2 Ml) 4 mg IVP X1 ONE; Protocol Stop: 04/03/25 00:55 Last Admin: 04/03/25 01:05 Dose: 4 mg Sodium Chloride (Sodium Chloride Rt Talisha 0.9% 3 Ml Nebu) 9 ml INH PRN PRN PRN Reason: SOLN Stop: 05/03/25 01:20 Assessment & Plan Plan The patient is a 74-year-old female with significant past medical history of diabetes mellitus type 2, hypothyroidism, chronic pain secondary to spinal stenosis, difficulty walking, major depressive disorder, muscle wasting and atrophy, age-related physical disability, chronic respiratory failure with hypercapnia, cervical disc degeneration and abdominal hernia who presented to ED on 04/03/2025 with chief complaint of acute tongue swelling associated with dyspnea. The patient was admitted to ICU for further management of acute angioedema and further airway management. REMOTE SENSING ADVISOR: The patient is sedated, intubated and mechanically ventilated - Unable to obtain due to severe tongue swelling - CT head with contrast ordered CVS: #Hypertensive emergency, improving #Sinus tachycardia Likely secondary to severe tongue swelling leading to airway obstruction leading to respiratory distress Patient's blood pressure went up to 210/110s The patient received metoprolol tartrate 5 Mg IV x 1, and 2.5 Mg IV x 1 and hydralazine 10 Mg IV x 1 - Telemetry monitoring - Labetalol 5 Mg IV every 4 hourly as needed for SBP greater than 180 or DBP greater than 110 - Continue to monitor closely #NSTEMI, likely type II EKG negative for any ST or T wave changes, troponin 0.055 - Continue to trend troponin until delta is achieved Pulmonology: #Acute respiratory failure 2/ #Angioedema Etiology currently unlnown DDx: anaphylactic vs allergic vs infectious The patient presented with severe angioedema, and started saturating in 30s, was bag and mask ventilated for couple hours, and finally the decision was made to intubate the patient for patient comfort, as she was uncomfortable with bag and mask ventilation. Her sister was contacted, and she wished to proceed with intubation. The patient was given epinephrine 0.3 Mg subcutaneous x 2, multiple racemic epinephrine INH, diphenhydramine 50 Mg IV x 2, methylprednisone 250 Mg IV x 1, and 125 Mg IV x 1 in the ED - Continue with epinephrine drip - Continue with intubation for airway protection #Possible aspiration pneumonia Chest x-ray was significant for right lower lobe pneumonia likely in the setting of aspiration - Started on ceftriaxone 1 g daily - CT chest/abdomen ordered GI: #Ventral abdominal hernia -Management as an outpatient basis - CT abdomen/chest with contrast ordered Renal: #Lactic acidosis Likely secondary to decreased tissue perfusion with hypoxia - Patient was finally intubated - Received 1 L of bolus IV normal saline, was started on normal saline 100 cc/h IV. Endo: #Diabetes mellitus type 2 - Started on sliding scale insulin every 6 hourly with lispro Hematology: #Leukocytosis Likely reactive, versus aspiration pneumonia Presented with white count of 21.3 - Daily a.m. labs for CBC - Continue to treat underlying cause angioedema ID: #Possible aspiration pneumonia Chest x-ray revealed right lower lobe pneumonia CRP 1.8, procalcitonin 0.08 - Started on ceftriaxone 1 g daily Health maintenance: Dispo: Patient admitted to ICU for further management of airway secondary to angioedema DVT prophylaxis: Subcu heparin Diet: N.p.o. Lines: Peripheral lines CODE STATUS: DNR The patient's management plan was discussed with my attending physician MD Raghavendra Humphries MD, PGY3 Attending Provider Attestation/Addendum Attending Provider Attestation/Addendum After examination of the patient and review of the clinical data I feel that this patient needs admission to the hospital for further treatment/evaluation. Patient is a 74-year-old female with HPI as documented above was brought in by ambulance from long-term facility where she resides for difficulty breathing and significant tongue swelling. Initially ED team prepared for intubation as patient's saturation was dropping into lower 30s and patient being unresponsive, but patient's POLST form was noted to be DNR/DNI, Ambu bag was used to oxygenate patient after placement of oropharyngeal airway, and she was given 3 doses of subcutaneous epinephrine, IV methylprednisolone, multiple doses of racemic epinephrine IV push, 2 doses of Benadryl IVP, 2 doses of Tranexamic acid, and later on epinephrine drip was started as patient wasn't showing any improvement in tongue angioedema with O2 sat>90%, BP around 245/160, HR around 160. Hospitalist/ I.M team covering ICU were consulted for possible admission to continue current patient management in hope of resolution of patient's angioedema. After discussing patient's recently signed POLST form and contacting sister decision to start comfort measure was made, prior to comfort care measure initiation respiratory therapist Sarah noted significant improvement in tongue edema and improvement in patient's vitals with sat. 96% BP 125/85, HR 105 was noted, decision to reverse comfort measures and continue with Ambu bag ventilation were made in hopes of patient improving and possibly started on Bi-pap if airway protection was achieved. After 2 hours, no improvement was noted in patient's consciousness, discussion with ED physician Dr. Tavarez and patient's sister were made, agreement that patient will benefit from short intubation period as medical issue was deemed reversible if time was given. Patient was intubated and moved to ICU for continuation of care. FFP along with Berinert (a human C1 esterase inhibitor) were ordered. Patient was also started on iv Abx for aspiration pnemonia. ICU/Double Reamer Operator team will take over care and continue contact with patient's sister. TOTAL CC TIME: 75 MIN TOTAL TIME: 75 Minutes of direct medical care, management and plan of care. I Sridevi Chu MD, attest that I was physically present for cordoba portions of evaluation, and examined patient, labs and imagings and plan of care were discussed with IM residents team, and I agree with the findings and plans documented above.
[2025-04-03] MEDS: Vancomycin Inj 2,000 MG in SODIUM CHLORIDE 0.9% 500 ML 500 ML 150 MG IV (03:55)
--- NOTE | 2025-04-03 04:10 | XR_ITS ---
Examination: AP chest single view TECHNIQUE: AP portable supine chest single view Date and time: April 03, 2025, 0442 hours Comparison April 03, 2025 0148 hours INDICATIONS: Hypoxic respiratory failure, postintubation FINDINGS: Extensive bilateral pneumonia, diffuse and severe in the right lung Endotracheal tube tip 5 cm above Berta. Orogastric tube in the stomach, the tip is below the level of the film Minimal prominence left ventricle Prominent osteopenia IMPRESSION: Bilateral pneumonia, severe and diffuse in the right lung, consider aspiration pneumonia
[2025-04-03] MEDS: SUCCINYLCHOLINE INJ 20 MG/ML VIAL 10 ML 150 MG IV (04:15)
[2025-04-03] MEDS: ETOMIDATE INJ 2 MG/ML VIAL 10 ML 30 MG IVP (04:16)
[2025-04-03] MEDS: MIDAZOLAM/NS 100 MG IVPB 100 MG/100 ML BAG IV (04:18)
[2025-04-03 04:45] LABS: Path Review Blood Smear Sent to Pathologist
[2025-04-03 05:11] LABS: Reflex Lactate? Y
[2025-04-03] MEDS: PROPOFOL 1,000 MG IVPB 1,000 MG/100 ML VIAL 2.722 MG IV (05:15)
[2025-04-03] MEDS: INSULIN LISPRO (AdmeLOG) 1 UNIT/0.01 ML UNIT SC ×3 (05:29→18:21)
[2025-04-03 05:30] LABS: Base Excess -12 (-3-3); HCO3 20 mEq/L (20-26); Inspired Oxygen, FIO2 100 %; O2 Saturation 89 % (91-98); PCO2 72 mmHg (32.0-48.0); PO2 71 mmHg (83-108)
[2025-04-03 05:36] LABS: Allen Test Performed/OK; Puncture Site Right Radial; pH, Arterial 7.06 (7.35-7.45)
[2025-04-03] MEDS: HEPARIN SOD INJ 5000 UNIT/ML VIAL SC (05:40)
[2025-04-03] MEDS: cefTRIAXone/D5w 1gm IV premix 1 GM/50 ML BAG IV (05:42)
[2025-04-03] MEDS: MethylPREDNISolone SOD SUCC 62.5 MG/ML 2ML VIAL 125 MG IVP (06:04)
[2025-04-03 07:08] LABS: Base Excess -11 (-3-3); HCO3 19 mEq/L (20-26); Inspired Oxygen, FIO2 100 %; O2 Saturation 97 % (91-98); PCO2 53 mmHg (32.0-48.0); PO2 103 mmHg (83-108)
[2025-04-03 07:13] LABS: Allen Test Performed/OK; Puncture Site Right Radial; pH, Arterial 7.16 (7.35-7.45)
[2025-04-03 08:11] LABS: Lactate (Lactic Acid) 5.5 mMol/L (0.4-2.0)
[2025-04-03] MEDS: AMPICILLIN/SULBAC INJ 3 GM in SODIUM CHLORIDE 0.9% (POP) 100 ML IV ×3 (08:36→18:21)
[2025-04-03 08:37] LABS: Alanine Aminotransferase 15 U/L (10-49); Albumin, Serum 4.0 gm/dL (3.4-4.8); Albumin/Globulin Ratio 1.4 (1.2-2.2); Alkaline Phosphatase 113 U/L (46-116); Anion Gap 15 (7-16); Aspartate Amino Transferase 39 U/L (0-34); BUN/Creatinine Ratio 11 Ratio (12-20); Bilirubin,Total 0.3 mg/dL (0.3-1.2); Blood Urea Nitrogen 17 mg/dL (9-23); Calcium 9.2 mg/dL (8.3-10.6); Calcium (Corrected) 9.2 mg/dL (8.5-10.1); Carbon Dioxide 16.6 mMol/L (20.0-31.0); Chloride 106 mMol/L (98-107); Creatinine (Component) 1.5 mg/dL (0.6-1.3); Estimated Creatinine Clearance 36.3 mL/min (>60); Globulin 2.9 gm/dL (2.3-3.5); Glucose 385 mg/dL (74-106); Magnesium 1.5 mg/dL (1.6-2.6); Osmolality,Calculated 293 (275-295); Phosphorous 5.4 mg/dL (2.4-5.1); Potassium 5.0 mMol/L (3.4-5.1); Sodium 138 mMol/L (136-145); Total Protein 6.9 gm/dL (5.7-8.2); eGFR 37 See Note
[2025-04-03] MEDS: RINGERS LACTATED 1000 ML 500 ML 999 ML IV ×2 (08:37→11:09)
[2025-04-03 10:22] LABS: Base Excess -10 (-3-3); HCO3 18 mEq/L (20-26); Inspired Oxygen, FIO2 100 %; O2 Saturation 99 % (91-98); PCO2 43 mmHg (32.0-48.0); PO2 108 mmHg (83-108); pH, Arterial 7.22 (7.35-7.45)
[2025-04-03 10:26] LABS: Allen Test Performed/OK; Puncture Site Right Radial
--- NOTE | 2025-04-03 10:26 | XR_ITS ---
Examination: Arterial duplex lower extremity unilateral left Date and time of exam: April 03, 2025 1059 hours INDICATIONS: Absent leg pulses with discoloration and coldness today Findings: Duplex sonographic imaging of the lower extremity arteries using B-mode/Cheung scale imaging and Doppler spectral analysis and color flow. Left common femoral artery demonstrates no flow. Left superficial femoral artery demonstrates monophasic flow. Left popliteal artery demonstrates no flow. Left posterior tibial artery demonstrated no flow. Impression: Severe peripheral obstructive arterial disease Consider correlation with CTA abdominal aorta iliofemoral runoff post intravenous contrast
[2025-04-03 10:29] LABS: Collection Type, Urine Clean Catch
[2025-04-03 10:51] LABS: Amorphous Crystals,Urine Present (Absent); Bilirubin,Urine Negative (Negative); Blood,Urine 2+ (Negative); Clarity,Urine Turbid (Clear/Hazy); Color,Urine Yellow (Lt Yel-Yel); Culture Indicated,Urine Not Indicated; Glucose, Urine Negative (Negative); Ketones,Urine Negative (Negative); Leukocyte Esterase,Urine Negative (Negative); Nitrite,Urine Negative (Negative); PH,Urine 5.5 (5.0-7.0); Protein,Urine 1+ (Neg - Trace); RBC,Urine 6 /hpf (0-3); Specific Gravity,Urine 1.026 (1.001-1.035); Squamous Epithelial Cell,Urine < 1 /hpf (0-5); Transitional Epi Cells,Urine 2 /hpf (0-5); Urobilinogen,Urine Negative mg/dL (0.0-1.0); WBC,Urine 5 /hpf (0-5)
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
[2025-04-03 11:06] LABS: Reflex Lactate? Y
[2025-04-03] MEDS: fentaNYL 2,500 MCG/250 ML BAG 2,500 MCG/250 ML BAG IV (11:37)
[2025-04-03] MEDS: PROPOFOL 1,000 MG IVPB 1,000 MG/100 ML VIAL 10.886 MG IV ×2 (11:41→21:24)
[2025-04-03] MEDS: INSULIN GLARGINE (Lantus) 5 UNIT/0.05 ML (PER 5 UNITS) 10 UNIT SC (11:43)
[2025-04-03] MEDS: Magnesium Sulfate 4 GM Ivpb 4 GM/50 ML BAG IV (11:46)
[2025-04-03 12:14] LABS: Lactic Acid, 3 HR 6.1 mMol/L (0.4-2.0)
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
[2025-04-03 13:22] LABS: Chloride,Urine Random 32.0 mMol/L (55.0-125.0); Creatinine,Random Urine 69 mg/dL (30-125); Potassium,Urine Random 75 mMol/L (12-62); Sodium,Urine Random 40.9 mMol/L (20.0-110.0)
[2025-04-03] MEDS: HEPARIN SOD INJ 5000 UNIT/ML VIAL 7700 UNIT IV (14:19)
[2025-04-03] MEDS: Heparin/D5w 25K 250 ML Ivpb 25,000 UNIT/250 ML BAG 17.316 UNIT IV (14:21)
[2025-04-03 14:39] LABS: Lactate (Lactic Acid) 6.0 mMol/L (0.4-2.0)
[2025-04-03 14:41] LABS: INR 1.1 (0.9-1.3); Partial Thromboplastin Time 27.0 Seconds (22.0-36.0); Prothrombin Time 11.5 Seconds (9.0-12.2)
[2025-04-03 14:43] LABS: Albumin, Serum 3.8 gm/dL (3.4-4.8); Anion Gap 16 (7-16); BUN/Creatinine Ratio 14 Ratio (12-20); Blood Urea Nitrogen 17 mg/dL (9-23); Calcium 9.6 mg/dL (8.3-10.6); Calcium (Corrected) 9.8 mg/dL (8.5-10.1); Carbon Dioxide 17.1 mMol/L (20.0-31.0); Chloride 109 mMol/L (98-107); Creatinine (Component) 1.2 mg/dL (0.6-1.3); Estimated Creatinine Clearance 45.9 mL/min (>60); Glucose 290 mg/dL (74-106); Osmolality,Calculated 295 (275-295); Phosphorous 3.9 mg/dL (2.4-5.1); Potassium 5.2 mMol/L (3.4-5.1); Sodium 142 mMol/L (136-145); eGFR 48 See Note
--- NOTE | 2025-04-03 15:20 | PC.SS ---
TUB OPERATOR conducted phone contact with patient?s sister, Mali Orona ; to conduct initial assessment on behalf of the patient.? Patient currently in ICU intubated/sedated.? 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 Patient utilizes a wheelchair to assist with mobility.? Patient does not utilize oxygen.? Patient requires assistance with completion of ADL?s.? Patient?s surrogate medical decision maker is sister, Mali Orona.? Facility PCP is Dr. Adorno.? Discharge plan is for the patient to return to [facility].? Patient is in possession of transportation coverage.? rehab services aide will assist with arrangement of transportation on behalf of the patient.? No further discharge needs identified by the patient.? No further intervention required at this time, social worker health services will be available to address any further concerns.? Next of Kin: Mali Yeyo D/C Plan: SNF
--- NOTE | 2025-04-03 15:38 | PC.SS ---
Update: Patient is intubated/sedated. OG tube placed for feedings. Patient is not receiving pressor support. Patient receiving IV antibiotics. Heparin drip in place. Altman catheter is placed.
[2025-04-03 16:51] LABS: Reflex Lactate? Y
[2025-04-03 17:56] LABS: Lactic Acid, 3 HR 5.3 mMol/L (0.4-2.0)
[2025-04-03 21:09] LABS: Albumin, Serum 3.7 gm/dL (3.4-4.8); Anion Gap 15 (7-16); BUN/Creatinine Ratio 17 Ratio (12-20); Blood Urea Nitrogen 17 mg/dL (9-23); Calcium 10.0 mg/dL (8.3-10.6); Calcium (Corrected) 10.2 mg/dL (8.5-10.1); Carbon Dioxide 17.3 mMol/L (20.0-31.0); Chloride 109 mMol/L (98-107); Creatinine (Component) 1.0 mg/dL (0.6-1.3); Estimated Creatinine Clearance 55.0 mL/min (>60); Glucose 334 mg/dL (74-106); Osmolality,Calculated 295 (275-295); Phosphorous 2.7 mg/dL (2.4-5.1); Potassium 4.7 mMol/L (3.4-5.1); Sodium 141 mMol/L (136-145); eGFR 60 See Note
[2025-04-03 21:50] LABS: Partial Thromboplastin Time > 139.0 Seconds (22.0-36.0)
[2025-04-04] VITALS (32 sets, daily range): BP systolic 96–139; BP diastolic 62–90; PULSE 86–102; RESP 27–35; TEMP 36.2–36.7; O2SAT 95–99; BMI 38.0; BMI 38.2
[2025-04-04] MEDS: AMPICILLIN/SULBAC INJ 3 GM in SODIUM CHLORIDE 0.9% (POP) 100 ML IV ×4 (00:30→17:46)
[2025-04-04] MEDS: INSULIN LISPRO (AdmeLOG) 1 UNIT/0.01 ML UNIT SC ×4 (00:30→17:47)
[2025-04-04] MEDS: PROPOFOL 1,000 MG IVPB 1,000 MG/100 ML VIAL 10.886 MG IV (02:21)
[2025-04-04] MEDS: RINGERS LACTATED 500 ML 500 ML 999 ML IV ×2 (02:48→22:43)
[2025-04-04] MEDS: INSULIN LISPRO (AdmeLOG) 1 UNIT/0.01 ML UNIT 10 UNIT SC (02:55)
[2025-04-04 04:31] LABS: Base Excess -1 (-3-3); HCO3 22 mEq/L (20-26); Inspired Oxygen, FIO2 21 %; O2 Saturation 98 % (91-98); PCO2 32 mmHg (32.0-48.0); PO2 92 mmHg (83-108); pH, Arterial 7.44 (7.35-7.45)
[2025-04-04 04:32] LABS: Allen Test Performed/OK; Puncture Site Right Radial
[2025-04-04 05:35] LABS: Lactate (Lactic Acid) 3.2 mMol/L (0.4-2.0)
[2025-04-04] MEDS: LEVOTHYROXINE SODIUM 25 MCG TABLET 75 MCG PO (05:57)
--- NOTE | 2025-04-04 06:00 | XR_ITS ---
Examination: AP chest single view Technique one AP portable semiupright chest single view Date and time: April 04, 2025 0502 hours Comparison April 03, 2025 INDICATIONS: Hypoxic respiratory failure, pneumonia ARDS on chest film April 03, 2025 FINDINGS: Severe bilateral lung opacity Endotracheal tube tip 5.6 cm above jaida. Normal heart size Orogastric tube in the stomach, the tip is below the level of the film IMPRESSION: Severe bilateral pneumonia ARDS pattern
[2025-04-04 06:23] LABS: Alanine Aminotransferase 15 U/L (10-49); Albumin, Serum 3.4 gm/dL (3.4-4.8); Albumin/Globulin Ratio 1.6 (1.2-2.2); Alkaline Phosphatase 82 U/L (46-116); Anion Gap 12 (7-16); Aspartate Amino Transferase 44 U/L (0-34); BUN/Creatinine Ratio 21 Ratio (12-20); Bilirubin,Total 0.3 mg/dL (0.3-1.2); Blood Urea Nitrogen 17 mg/dL (9-23); Calcium 9.5 mg/dL (8.3-10.6); Calcium (Corrected) 10.0 mg/dL (8.5-10.1); Carbon Dioxide 20.5 mMol/L (20.0-31.0); Chloride 109 mMol/L (98-107); Creatinine (Component) 0.8 mg/dL (0.6-1.3); Estimated Creatinine Clearance 68.8 mL/min (>60); Globulin 2.1 gm/dL (2.3-3.5); Glucose 254 mg/dL (74-106); Magnesium 1.8 mg/dL (1.6-2.6); Osmolality,Calculated 291 (275-295); Phosphorous 1.6 mg/dL (2.4-5.1); Potassium 4.2 mMol/L (3.4-5.1); Sodium 141 mMol/L (136-145); Thyroid Stimulating Hormone 1.31 uIU/mL (0.55-4.78); Total Protein 5.5 gm/dL (5.7-8.2); Vancomycin,Random 8.3 mcg/mL; eGFR > 60 See Note
[2025-04-04 06:31] LABS: Partial Thromboplastin Time 75.3 Seconds (22.0-36.0)
[2025-04-04] MEDS: Heparin/D5w 25K 250 ML Ivpb 25,000 UNIT/250 ML BAG 14.43 UNIT IV (07:44)
[2025-04-04] MEDS: Magnesium Sulfate 2 GM Ivpb 2 GM/50 ML BAG IV (07:45)
[2025-04-04] MEDS: INSULIN GLARGINE (Lantus) 5 UNIT/0.05 ML (PER 5 UNITS) 10 UNIT SC (07:45)
[2025-04-04] MEDS: DEXAMETHASONE INJ 20 MG in SODIUM CHLORIDE 0.9% 50 ML 208 MG IV (08:02)
[2025-04-04 08:32] LABS: Reflex Lactate? Y
[2025-04-04] MEDS: PROPOFOL 1,000 MG IVPB 1,000 MG/100 ML VIAL 16.329 MG IV (08:57)
[2025-04-04 09:37] LABS: Lactic Acid, 3 HR 2.6 mMol/L (0.4-2.0)
--- NOTE | 2025-04-04 10:02 | PC.DIETICIAN ---
Nutrition prescription Vital at 35 ml/hr via OG tube by pump. Advance 10 ml every 8 hrs to goal rate of 55 ml/hr x 22 hrs. If no IV fluids, water flushes of 25 ml/hr (or per MD). Provides: 1452 kcal, 91 g prot, 981 ml free water, 1210 ml total volume. -Hold TF for one hour before and after levothyroxine administration-
[2025-04-04] MEDS: VANCOMYCIN/WATER 1250 MG IVPB 250 ML 120 MG IV (10:15)
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
[2025-04-04 12:20] LABS: Partial Thromboplastin Time 72.2 Seconds (22.0-36.0)
[2025-04-04] MEDS: PROPOFOL 1,000 MG IVPB 1,000 MG/100 ML VIAL 13.608 MG IV (14:05)
--- NOTE | 2025-04-04 15:45 | PC.SS ---
Update: Patient remains intubated/sedated. OG tube in place for feeds. Patient on heparin drip. No pressor support in place. Possible discussion regarding comfort care pending.
[2025-04-04 18:49] LABS: Partial Thromboplastin Time 52.8 Seconds (22.0-36.0)
[2025-04-04 19:14] LABS: Lactate (Lactic Acid) 3.0 mMol/L (0.4-2.0)
[2025-04-04 19:15] LABS: Basophils # (Auto) 0.0 Thou/mm3 (0.0-0.2); Basophils % (Auto) 0 % (0-2.5); Eosinophils # (Auto) 0.0 Thou/mm3 (0.0-0.5); Eosinophils % (Auto) 0 % (0-10); Hematocrit 45.5 % (36.0-46.0); Hemoglobin 14.7 g/dL (12.0-16.0); Immature Granulocytes Auto 0.11 Thou/mm3 (0.00-0.00); Lymphocytes # (Auto) 0.8 Thou/mm3 (1.0-4.8); Lymphocytes % (Auto) 6 % (10-50); Mean Corpuscular HGB Conc 32.3 g/dl (31.0-37.0); Mean Corpuscular Hemoglobin 30.0 pg (25.0-35.0); Mean Corpuscular Volume 93 fL (80-100); Monocytes # (Auto) 0.5 Thou/mm3 (0.0-0.8); Monocytes % (Auto) 3 % (0-12); Neutrophils # (Auto) 13.4 Thou/mm3 (1.8-7.7); Neutrophils % (Auto) 90 % (37-80); Nucleated Red Blood Cell # 0.00 Thou/mm3 (0.00-0.00); Nucleated Red Blood Cell % 0 /100 WBC (0); Platelet Count 166 Thou/mm3 (140-440); RDW Standard Deviation 48.4 fL (36.4-46.3); Red Blood Count 4.90 Miln/mm3 (4.00-5.20); White Blood Count 14.8 Thou/mm3 (3.6-11.0)
[2025-04-04] MEDS: NAPH,KPH MBDB 1 PACKET (1.5 GM) GT (19:18)
[2025-04-04] MEDS: POT PHOS 15 mMol in NS 250 ML 15 MMOL/250 ML BAG 62.5 MMOL IV (20:14)
[2025-04-04] MEDS: INSULIN LISPRO (AdmeLOG) 1 UNIT/0.01 ML UNIT 7 UNIT SC (20:15)
[2025-04-04] MEDS: PROPOFOL 1,000 MG IVPB 1,000 MG/100 ML VIAL 21.772 MG IV (20:20)
[2025-04-04] MEDS: INSULIN GLARGINE (Lantus) 5 UNIT/0.05 ML (PER 5 UNITS) 16 UNIT SC (20:26)
[2025-04-04 22:13] LABS: Reflex Lactate? Y
[2025-04-04 22:49] LABS: Lactic Acid, 3 HR 2.5 mMol/L (0.4-2.0)
[2025-04-05] VITALS (50 sets, daily range): BP systolic 82–144; BP diastolic 48–111; PULSE 57–123; RESP 23–32; TEMP 36.1–37; O2SAT 89–100; BMI 39.0
[2025-04-05] MEDS: POT PHOS 15 mMol in NS 250 ML 15 MMOL/250 ML BAG 62.5 MMOL IV (00:24)
[2025-04-05] MEDS: AMPICILLIN/SULBAC INJ 3 GM in SODIUM CHLORIDE 0.9% (POP) 100 ML IV ×2 (00:24→05:48)
[2025-04-05] MEDS: INSULIN LISPRO (AdmeLOG) 1 UNIT/0.01 ML UNIT SC ×4 (00:27→18:34)
[2025-04-05] MEDS: PROPOFOL 1,000 MG IVPB 1,000 MG/100 ML VIAL 21.772 MG IV ×3 (00:30→22:50)
[2025-04-05] MEDS: fentaNYL 2,500 MCG/250 ML BAG 2,500 MCG/250 ML BAG 17.5 MCG IV (01:07)
[2025-04-05] MEDS: Heparin/D5w 25K 250 ML Ivpb 25,000 UNIT/250 ML BAG 14.43 UNIT IV (02:42)
[2025-04-05 04:57] LABS: Base Excess -1 (-3-3); HCO3 25 mEq/L (20-26); Inspired Oxygen, FIO2 85 %; O2 Saturation 94 % (91-98); PCO2 40 mmHg (32.0-48.0); PO2 65 mmHg (83-108); pH, Arterial 7.39 (7.35-7.45)
[2025-04-05 05:01] LABS: Allen Test Performed/OK; Puncture Site Right Radial
[2025-04-05 05:36] LABS: Basophils # (Auto) 0.0 Thou/mm3 (0.0-0.2); Basophils % (Auto) 0 % (0-2.5); Eosinophils # (Auto) 0.0 Thou/mm3 (0.0-0.5); Eosinophils % (Auto) 0 % (0-10); Hematocrit 40.7 % (36.0-46.0); Hemoglobin 13.1 g/dL (12.0-16.0); Immature Granulocytes Auto 0.08 Thou/mm3 (0.00-0.00); Lymphocytes # (Auto) 1.4 Thou/mm3 (1.0-4.8); Lymphocytes % (Auto) 10 % (10-50); Mean Corpuscular HGB Conc 32.2 g/dl (31.0-37.0); Mean Corpuscular Hemoglobin 29.9 pg (25.0-35.0); Mean Corpuscular Volume 93 fL (80-100); Monocytes # (Auto) 0.7 Thou/mm3 (0.0-0.8); Monocytes % (Auto) 5 % (0-12); Neutrophils # (Auto) 11.3 Thou/mm3 (1.8-7.7); Neutrophils % (Auto) 84 % (37-80); Nucleated Red Blood Cell # 0.00 Thou/mm3 (0.00-0.00); Nucleated Red Blood Cell % 0 /100 WBC (0); Platelet Count 175 Thou/mm3 (140-440); RDW Standard Deviation 48.0 fL (36.4-46.3); Red Blood Count 4.38 Miln/mm3 (4.00-5.20); White Blood Count 13.6 Thou/mm3 (3.6-11.0)
[2025-04-05] MEDS: LEVOTHYROXINE SODIUM 25 MCG TABLET 75 MCG PO (05:48)
[2025-04-05 06:11] LABS: Alanine Aminotransferase 13 U/L (10-49); Albumin, Serum 3.2 gm/dL (3.4-4.8); Albumin/Globulin Ratio 1.6 (1.2-2.2); Alkaline Phosphatase 75 U/L (46-116); Anion Gap 12 (7-16); Aspartate Amino Transferase 31 U/L (0-34); BUN/Creatinine Ratio 20 Ratio (12-20); Bilirubin,Total 0.2 mg/dL (0.3-1.2); Blood Urea Nitrogen 12 mg/dL (9-23); Calcium 9.1 mg/dL (8.3-10.6); Calcium (Corrected) 9.7 mg/dL (8.5-10.1); Carbon Dioxide 22.0 mMol/L (20.0-31.0); Chloride 107 mMol/L (98-107); Creatinine (Component) 0.6 mg/dL (0.6-1.3); Estimated Creatinine Clearance 88.8 mL/min (>60); Globulin 2.0 gm/dL (2.3-3.5); Glucose 274 mg/dL (74-106); Magnesium 2.2 mg/dL (1.6-2.6); Osmolality,Calculated 290 (275-295); Phosphorous 3.4 mg/dL (2.4-5.1); Potassium 4.7 mMol/L (3.4-5.1); Sodium 141 mMol/L (136-145); Total Protein 5.2 gm/dL (5.7-8.2); eGFR > 60 See Note
--- NOTE | 2025-04-05 06:48 | XR_ITS ---
Examination: AP chest single view Technique one AP portable semiupright chest single view Date and time: April 05, 2025 0518 hours Comparison April 04, 2025 INDICATIONS: Difficulty breathing this week, pneumonia on earlier chest films FINDINGS: Bilateral lung opacity, improved compared to April 04, 2025 Tracheal tube tip 4.6 cm above jaida. Mild prominence left ventricle Orogastric tube in the stomach, the tip is below the level film IMPRESSION: Significant bilateral pneumonia but improved compared with April 04, 2025
[2025-04-05 07:54] LABS: Lactate (Lactic Acid) 2.3 mMol/L (0.4-2.0)
[2025-04-05] MEDS: cefTRIAXone/D5w 1gm IV premix 1 GM/50 ML BAG IV (08:36)
[2025-04-05] MEDS: DEXAMETHASONE INJ 20 MG in SODIUM CHLORIDE 0.9% 50 ML 208 MG IV (08:37)
[2025-04-05 09:28] LABS: Partial Thromboplastin Time 58.7 Seconds (22.0-36.0)
[2025-04-05] MEDS: VANCOMYCIN/WATER 1250 MG IVPB 250 ML 120 MG IV (09:40)
[2025-04-05 10:53] LABS: Reflex Lactate? Y
[2025-04-05 11:29] LABS: Lactic Acid, 3 HR 1.8 mMol/L (0.4-2.0)
--- NOTE | 2025-04-05 11:58 | XR_ITS ---
Examination: CTA abdominal aorta iliofemoral runoff. 2-D sagittal coronal reconstructions. 3-D reconstructions, vascular Date and time: April 05 22,025, 1616 hours INDICATIONS: Severe peripheral obstructive arterial disease diagnosis, absent left leg pulses with discoloration noticed April 03, 2025 Technique: Multiple CTA images of the abdominal aorta iliofemoral runoff arterial vessels, 2.0 mm slice thickness, post intravenous administration 130 cc Isovue 370 2-D sagittal coronal reconstructions. 3-D reconstructions, vascular 3-D postprocessing, including vascular maximum intensity projection images, 3-D volume rendering Low dose protocols were performed. One or more of the following dose reduction techniques were used; automated exposure control, adjustment of the mA and/or KV according to patient size, use of iterative reconstruction technique. 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 axial image 121 causing 30% stenosis Occlusion left common iliac artery axial image 38 extending over a distance of 8 mm Occlusion left external iliac artery at its origin Right common iliac and right external iliac arteries intact No filling of the left common femoral artery No filling of the proximal left superficial femoral artery Severely attenuated mid and distal left superficial femoral artery which is occluded distally axial image 348 No filling of the popliteal artery No contrast opacification of left anterior tibial posterior tibial or main continuation trunks Right superficial femoral artery is intact as well as right popliteal artery Occlusion of the right anterior tibial artery proximally Occlusion of the right posterior tibial artery in its midportion Very poor filling of the main continuation from IMPRESSION: 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 Occlusion left trifurcation arteries below the knee Occlusion of the right anterior tibial artery proximally Occlusion of the right posterior tibial artery in its midportion.
[2025-04-05] MEDS: PROPOFOL 1,000 MG IVPB 1,000 MG/100 ML VIAL 11.616 MG IV (13:00)
--- NOTE | 2025-04-05 14:35 | PC.SS ---
Update: Patient remains intubated/sedated. OG Tube in place, feedings started no pressors, patient receiving IV ABX. Altman Catheter not present, pending CT of left Leg. Patient is afebrile. Possible vascular consult pending.
[2025-04-05] MEDS: DEXMEDETOMIDINE 400 MCG IVPB 400 MCG/100 ML BAG IV (15:27)
[2025-04-05] MEDS: MIDAZOLAM INJ 1 MG/ML VIAL 2 ML 2 MG IVP ×2 (15:37→16:15)
[2025-04-05] MEDS: PROPOFOL 1,000 MG IVPB 1,000 MG/100 ML VIAL 27.215 MG IV (16:58)
[2025-04-05] MEDS: fentaNYL 2,500 MCG/250 ML BAG 2,500 MCG/250 ML BAG 25 MCG IV (16:58)
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
[2025-04-05] MEDS: RINGERS LACTATED 1000 ML 500 ML 125 ML IV (18:09)
--- NOTE | 2025-04-05 18:09 | XR_ITS ---
Examination: AP chest single view TECHNIQUE: AP portable supine chest single view Date and time: April 05, 2025 1820 hours Comparison April 05, 2025 0518 hours INDICATIONS: Hypoxia, hypoxic respiratory failure postintubation FINDINGS: Severe bilateral lung opacity again noted Mild prominence of ventricle Endotracheal tube tip 4.7 cm above Berta Orogastric tube is in the stomach the tip is below the level of the film No pneumothorax IMPRESSION: No significant change in severe bilateral pneumonia/ARDS
[2025-04-05] MEDS: Norepinephrine/D5W 8mg/250ml 8 MG/250 ML BAG 9.075 MG IV (18:15)
[2025-04-05 18:20] LABS: Base Excess -2 (-3-3); HCO3 24 mEq/L (20-26); Inspired Oxygen, FIO2 50 %; O2 Saturation 87 % (91-98); PCO2 44 mmHg (32.0-48.0); pH, Arterial 7.35 (7.35-7.45)
[2025-04-05 18:23] LABS: Allen Test Not Performed; PO2 53 mmHg (83-108); Puncture Site Left Radial
--- NOTE | 2025-04-05 19:31 | PC.NURSE ---
AT 1710, Dr. Mcknight notified of pt having red tinged secretion from ET tube after CT, no further orders at this time, at 1805. heparin gtt off per dr mcknight
[2025-04-05 19:35] LABS: Basophils # (Auto) 0.0 Thou/mm3 (0.0-0.2); Basophils % (Auto) 0 % (0-2.5); Eosinophils # (Auto) 0.0 Thou/mm3 (0.0-0.5); Eosinophils % (Auto) 0 % (0-10); Hematocrit 41.1 % (36.0-46.0); Hemoglobin 13.3 g/dL (12.0-16.0); Immature Granulocytes Auto 0.16 Thou/mm3 (0.00-0.00); Lymphocytes # (Auto) 0.9 Thou/mm3 (1.0-4.8); Lymphocytes % (Auto) 7 % (10-50); Mean Corpuscular HGB Conc 32.4 g/dl (31.0-37.0); Mean Corpuscular Hemoglobin 29.9 pg (25.0-35.0); Mean Corpuscular Volume 92 fL (80-100); Monocytes # (Auto) 0.4 Thou/mm3 (0.0-0.8); Monocytes % (Auto) 4 % (0-12); Neutrophils # (Auto) 10.9 Thou/mm3 (1.8-7.7); Neutrophils % (Auto) 88 % (37-80); Nucleated Red Blood Cell # 0.00 Thou/mm3 (0.00-0.00); Nucleated Red Blood Cell % 0 /100 WBC (0); Platelet Count 183 Thou/mm3 (140-440); RDW Standard Deviation 48.6 fL (36.4-46.3); Red Blood Count 4.45 Miln/mm3 (4.00-5.20); White Blood Count 12.4 Thou/mm3 (3.6-11.0)
[2025-04-05 19:36] LABS: Lactate (Lactic Acid) 3.1 mMol/L (0.4-2.0)
--- NOTE | 2025-04-05 19:38 | PC.NURSE ---
at 0840, per Dr. Hood, sedation titrated down for vent weaning RASS goal 0, at 1308, pt began becoming more restless and agitated, per Dr Li and Dr burroughs at bedside RASS goal changed to -2, at 1537, pt restless and preparing to go to CT, unable to follow commands, per Dr. Burroughs at bedside 2mg versed given at 1537, and precedex started, pt became more calm, at ct at 1615, pt became more agitated, 2 mg versed given per Dr. BURROUGHS, CT completed, at CT red tinged secretion from ET tube suctioned by RT, pt became tachycardic HR in 120s, Dr. Burroughs notified, BP (MAP 57)levo started per dr burroughs at bedside
[2025-04-05 19:57] LABS: Troponin I 7.216 ng/mL (0.0-0.045)
--- NOTE | 2025-04-05 19:57 | EKG_ITS ---
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
[2025-04-05] MEDS: INSULIN GLARGINE (Lantus) 5 UNIT/0.05 ML (PER 5 UNITS) 26 UNIT SC (21:21)
[2025-04-05 22:32] LABS: Reflex Lactate? Y
[2025-04-05 23:00] LABS: Lactic Acid, 3 HR 2.6 mMol/L (0.4-2.0)
--- NOTE | 2025-04-05 23:09 | EKG_ITS ---
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
[2025-04-06] VITALS (18 sets, daily range): BP systolic 106–147; BP diastolic 57–81; PULSE 86–115; RESP 8–29; TEMP 36.6; O2SAT 79–99; BMI 38.8
[2025-04-06] MEDS: ASPIRIN 81 MG CHEW NG (00:26)
[2025-04-06] MEDS: INSULIN LISPRO (AdmeLOG) 1 UNIT/0.01 ML UNIT SC ×2 (00:26→06:02)
[2025-04-06 00:46] LABS: Troponin I 5.870 ng/mL (0.0-0.045)
[2025-04-06] MEDS: PROPOFOL 1,000 MG IVPB 1,000 MG/100 ML VIAL 21.772 MG IV (04:10)
[2025-04-06] MEDS: Heparin/D5w 25K 250 ML Ivpb 25,000 UNIT/250 ML BAG 14.43 UNIT IV (04:11)
[2025-04-06 05:41] LABS: Base Excess -1 (-3-3); HCO3 25 mEq/L (20-26); Inspired Oxygen, FIO2 45 %; O2 Saturation 94 % (91-98); PCO2 42 mmHg (32.0-48.0); PO2 67 mmHg (83-108); pH, Arterial 7.38 (7.35-7.45)
[2025-04-06 05:42] LABS: Allen Test Performed/OK; Puncture Site Right Radial
--- NOTE | 2025-04-06 05:51 | XR_ITS ---
Examination: AP chest single view Technique one AP portable semiupright chest single view Date and time: April 06, 2025 0608 hours Comparison April 05, 2025 INDICATIONS: Hypoxic respiratory failure, severe pneumonia on earlier chest imaging this week. FINDINGS: Normal heart size Bilateral extensive pneumonia Endotracheal tube tip 4 cm above jaida Orogastric tube in the stomach IMPRESSION: No significant change in extensive bilateral pneumonia ARDS
[2025-04-06] MEDS: LEVOTHYROXINE SODIUM 25 MCG TABLET 75 MCG PO (06:00)
[2025-04-06 06:21] LABS: Basophils # (Auto) 0.0 Thou/mm3 (0.0-0.2); Basophils % (Auto) 0 % (0-2.5); Eosinophils # (Auto) 0.0 Thou/mm3 (0.0-0.5); Eosinophils % (Auto) 0 % (0-10); Hematocrit 43.6 % (36.0-46.0); Hemoglobin 14.0 g/dL (12.0-16.0); Immature Granulocytes Auto 0.19 Thou/mm3 (0.00-0.00); Lymphocytes # (Auto) 1.6 Thou/mm3 (1.0-4.8); Lymphocytes % (Auto) 12 % (10-50); Mean Corpuscular HGB Conc 32.1 g/dl (31.0-37.0); Mean Corpuscular Hemoglobin 30.1 pg (25.0-35.0); Mean Corpuscular Volume 94 fL (80-100); Monocytes # (Auto) 0.6 Thou/mm3 (0.0-0.8); Monocytes % (Auto) 4 % (0-12); Neutrophils # (Auto) 10.7 Thou/mm3 (1.8-7.7); Neutrophils % (Auto) 82 % (37-80); Nucleated Red Blood Cell # 0.00 Thou/mm3 (0.00-0.00); Nucleated Red Blood Cell % 0 /100 WBC (0); Platelet Count 168 Thou/mm3 (140-440); RDW Standard Deviation 49.4 fL (36.4-46.3); Red Blood Count 4.65 Miln/mm3 (4.00-5.20); White Blood Count 13.1 Thou/mm3 (3.6-11.0)
[2025-04-06 07:11] LABS: Alanine Aminotransferase 17 U/L (10-49); Albumin, Serum 3.6 gm/dL (3.4-4.8); Albumin/Globulin Ratio 1.6 (1.2-2.2); Alkaline Phosphatase 80 U/L (46-116); Anion Gap 13 (7-16); Aspartate Amino Transferase 42 U/L (0-34); BUN/Creatinine Ratio 20 Ratio (12-20); Bilirubin,Total 0.3 mg/dL (0.3-1.2); Blood Urea Nitrogen 16 mg/dL (9-23); Calcium 9.6 mg/dL (8.3-10.6); Calcium (Corrected) 9.9 mg/dL (8.5-10.1); Carbon Dioxide 20.9 mMol/L (20.0-31.0); Chloride 105 mMol/L (98-107); Creatinine (Component) 0.8 mg/dL (0.6-1.3); Estimated Creatinine Clearance 68.9 mL/min (>60); Globulin 2.2 gm/dL (2.3-3.5); Glucose 301 mg/dL (74-106); Osmolality,Calculated 289 (275-295); Phosphorous 2.6 mg/dL (2.4-5.1); Potassium 4.8 mMol/L (3.4-5.1); Sodium 139 mMol/L (136-145); Total Protein 5.8 gm/dL (5.7-8.2); Troponin I 5.782 ng/mL (0.0-0.045); eGFR > 60 See Note
[2025-04-06] MEDS: FUROSEMIDE INJ 10 MG/ML 4ML VIAL 40 MG IVP (07:53)
[2025-04-06] MEDS: cefTRIAXone/D5w 1gm IV premix 1 GM/50 ML BAG IV (08:52)
[2025-04-06] MEDS: fentaNYL 2,500 MCG/250 ML BAG 2,500 MCG/250 ML BAG 25 MCG IV (09:40)
[2025-04-06] MEDS: DEXMEDETOMIDINE 400 MCG IVPB 400 MCG/100 ML BAG IV (09:40)
[2025-04-06 10:03] LABS: Vancomycin,Trough 8.1 mcg/mL (5.0-10.0)
--- NOTE | 2025-04-06 10:40 | DES_ITS ---
<Statement entered by Ramiro Hood MD - 04/07/25 12:46> I reviewed the resident?s note and agree with findings and plan as documented in the resident?s note. Documentation for date of: 04/06/25 Pronouncement Note Date and Time of Date of : 04/06/25 Time of : 10:40 PCOD Preliminary cause of : Respiratory arrest Contributing Factors (1) Acute respiratory failure with hypoxia: (2) Angioedema: (3) Acute lower limb ischemia: Summary Additional details: Patient was seen and examined at the bedside, no pulses could be felt, no cardiac sounds were heard after 2 continuous minutes of auscultation, no breath sounds heard, and pupils were fixed and dilated. Patient pronounced at 10:40 am. Patient seen with the attending physician, Dr. Hood. Rubina Li, PGY-3 Additional Data Confirmation of : no pulse, no respirations, no heart sounds and pupils fixed and dilated Family: contacted Additional persons at bedside: automotive electrician and practice advisor Attending/PCP notified?: Yes Attending physician: Ramiro Hood MD Was code activated?: No Autopsy requested?: No architectural examiner notified?: No Organ bank notified?: No Advance directives: Yes
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
== END 2025-04-06 10:40 | disposition expired | DRG 915 ==
LOC: SERX 02:34 → SERHOLD 03:47 → S2SX 05:02
PROVIDERS: Student in an Organized Health Care Education/Training Program; Admitting Provider Student in an Organized Health Care Education/Training Program; Emergency Provider Emergency Medicine; Visit Provider Internal Medicine
DX: T78.3XXA Angioneurotic edema, initial encounter (principal); I21.A1 Myocardial infarction type 2; J69.0 Pneumonitis due to inhalation of food and vomit; J96.22 Acute and chronic respiratory failure with hypercapnia; J96.21 Acute and chronic respiratory failure with hypoxia; I16.1 Hypertensive emergency; G93.40 Encephalopathy, unspecified; N17.9 Acute kidney failure, unspecified; E87.4 Mixed disorder of acid-base balance; E03.9 Hypothyroidism, unspecified; M48.00 Spinal stenosis, site unspecified; G89.29 Other chronic pain; M62.50 Muscle wasting and atrophy, not elsewhere classified, unspecified site; F32.9 Major depressive disorder, single episode, unspecified; K43.9 Ventral hernia without obstruction or gangrene; E11.51 Type 2 diabetes mellitus with diabetic peripheral angiopathy without gangrene; I99.8 Other disorder of circulatory system; Z74.01 Bed confinement status; Z66 Do not resuscitate; Z51.5 Encounter for palliative care; Z63.4 Disappearance and death of family member; Z79.890 Hormone replacement therapy; Z87.891 Personal history of nicotine dependence
CPT/HCPCS: 36415; 36600; 71045; 75635; 80053; 80069; 80202; 81001; 82248; 82436; 82570; 82803; 83605; 83735; 83880; 84100; 84133; 84145; 84300; 84443; 84484; 85025; 85610; 85652; 85730; 86140; 86850; 86900; 86901; 86927; 87040; 87081; 87205; 87400; 87811; 93005; 93926; 94002; 94003; 94640; 96365; 96366; 96375; 96376; 99284; A4314; A4649; J0166; J0171; J0295; J0330; J0692; J0696; J1100; J1200; J1644; J1815; J1938; J2250; J2251; J2405; J2470; J2704; J2919; J3010; J3360; J3372; J3373; J3475; J3490; J7030; J7050; J7120; J7999; Q9967; A9270